=== PATIENT | female | born 1985 | race Caucasian/White ===

== ENCOUNTER 2020-02-16 14:31 | Outpatient (REF) | payer OTHER, SELFPAY ==
[2020-02-16 14:53] LABS: COVID-19 Test Negative (Negative)
== END 2020-02-16 14:32 | disposition home or self-care (01) ==
LOC: HO.EMPCOV 14:31
PROVIDERS: Visit Provider Internal Medicine
DX: Z20.828 Contact with and (suspected) exposure to other viral communicable diseases (principal)
CPT/HCPCS: 87635; C9803

== ENCOUNTER 2020-03-18 11:26 | Outpatient (REF) | payer OTHER, SELFPAY ==
[2020-03-18 11:45] LABS: COVID-19 Test Negative (Negative)
== END 2020-03-18 11:27 | disposition home or self-care (01) ==
LOC: HO.EMPCOV 11:26
PROVIDERS: PCP Nurse Practitioner; Visit Provider Internal Medicine
DX: Z20.828 Contact with and (suspected) exposure to other viral communicable diseases (principal)
CPT/HCPCS: 87635; C9803

== ENCOUNTER 2021-04-15 11:56 | Emergency (ER) | payer OTHER, SELFPAY ==
--- NOTE | ~2021-04-15 | XR_ITS ---
EXAMINATION: XR CHEST CLINICAL INFORMATION: Shortness of breath. COMPARISON: None. TECHNIQUE: PA view of the chest was obtained. FINDINGS: Normal appearance of the cardiomediastinal silhouette. No focal airspace opacities, pleural effusions or pneumothorax. No acute osseous abnormalities. The visualized upper abdomen is within normal limits. XR/XR chest 1V IMPRESSION: No acute cardiopulmonary findings.
[2021-04-15 13:20] VITALS: BP 127/92; PULSE 88; RESP 18; TEMP 36.6; O2SAT 100; BMI 25.0
--- NOTE | 2021-04-15 13:28 | ED.GENADULT ---
HPI - General Adult General Chief complaint: General Medical Stated complaint: +COVID SOB dif breathing Time Seen by Provider: 04/15/21 13:28 Source: patient Mode of arrival: ambulatory Limitations: no limitations History of Present Illness HPI narrative: 35 y/o female with no medical history presents to the ER with SOB and hypoxia on her home pulse oximeter. Reports over the last week she has been winded going up stairs which is not her baseline. She works out a few times a week and is very active. She figured she had the flu because she is fully vaccinated for COVID-19 including the booster and has had no sick contacts. She does not go anywhere but the grocery store. She stayed home and monitor her symptoms. Eventually yesterday she went to the testing center here and got a COVID test and was found to be COVID positive. She reports overall her breathing is better in the worse of it was last week. She got a pulse oximeter and checked it at home and found her O2 sats to be in the 80s. Of note she does have thick red acrylic fake fingernails on. complaint: Oxygen level 80s on home O2 monitor Onset (ago): hour(s) Location: chest Radiation: non-radiation Severity: mild Pain Consistency: intermittent Relieving factors: rest Exacerbating factors: movement Associated symptoms: denies other symptoms Treatments prior to arrival: none Related Data Allergies Allergy/AdvReac Type Severity Reaction Status Date / Time No Known Allergies Allergy Verified 04/15/21 13:19 Review of Systems Review of Systems: Constitutional: No Fever, No Chills ENT/Mouth: No sore throat, No Rhinorrhea Cardiovascular: No Chest Pain, +SOB, No Orthopnea, No Edema Respiratory: No Cough, No Sputum, No Wheezing, + dyspnea Gastrointestinal: No Nausea, No Vomiting, No abdominal Pain, Musculoskeletal: No joint pain, +Myalgias Neuro: No Weakness, No Dizziness,+ Headache Psych: +Anxiety/Panic PMFSH Past Medical History Medical History (Updated 04/15/21 @ 14:16 by JARETT Zapata) Endometriosis Social History Social History Advance Directives: No Advance Directives Information Provided: No Patient : No Physical Exam Vital Signs: Vital Signs: Last Vital Signs Temp 98 F 04/15/21 13:20 Pulse 98 04/15/21 14:00 Resp 20 04/15/21 14:00 BP 127/92 H 04/15/21 13:20 Pulse Ox 100 04/15/21 14:00 BMI result Body Mass Index 25.0 Appearance: Alert. Oriented X3. No acute distress. HEENT: Normal external inspection Neck: Normal inspection. Neck supple. CVS: Normal heart rate and rhythm. Pulses normal. Respiratory: No respiratory distress. Breath sounds normal. Skin: Skin warm and dry. Normal skin color. Normal skin turgor. No rashes. Extremities: Normal inspection, normal range of motion. Neuro: Oriented X 3. Grossly normal, nonfocal. Ambulates with steady gait, no respiratory distress. Course Course Course Narrative: 35-year-old female with known COVID-19 presents to the ER with possible hypoxia at home. Home O2 saturating in the 80s. In triage SpO2 100%. No respiratory distress. Patient was ambulated on the ER a few times with different pulse oximeters and her O2 sats remain 98-100%. She was in no respiratory distress and had no difficulty breathing. Chest x-ray today is clear. 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 She was counseled on proper use with monitoring on the the toe with your low. She is stable for discharge home. Critical Care Time Critical Care Time Critical Care Time: No Discharge Plan Discharge Clinical Impression: COVID-19 Patient Disposition: Home, Self-Care Instructions: Covid-19 Viral Syndrome and Novel Coronavirus (ED) Hey/Ath Additional Instructions: Your oxygen levels remained 100% today while knee emergency room. It is most likely that your home pulse oximeter did not have an accurate reading given your fingernails Hebrew and fake nails. You try monitoring your oxygen levels on your toe or your ear lobe. Follow-up with your doctor as needed If you develop new or worsening symptoms call 911 or come back to the ER for further evaluation. Referrals: Tigist Cox NP [Primary Care Provider] - 1 week (Follow-up COVID) Stand Alone Forms: Work/School Release
[2021-04-15 13:46] VITALS: PULSE 100; O2SAT 83
--- NOTE | 2021-04-15 13:58 | PC.NURSE ---
PT WAS WALK BY [facility] THERAPY AND STAT STAYED AT 100% ON ROOM AIR WITH DIFFERENT MONITOR PT FINGER NAIL POLOSH EFFECTING HE READ ON MONITOR.
[2021-04-15 14:00] VITALS: PULSE 98; RESP 20; O2SAT 100
== END 2021-04-15 14:33 | disposition home or self-care (01) ==
PROVIDERS: Emergency Provider Emergency Medicine; PCP Nurse Practitioner
DX: U07.1 COVID-19 (principal); R06.02 Shortness of breath
CPT/HCPCS: 71045; 99283; 99284

== ENCOUNTER 2021-08-04 07:19 | Outpatient (REF) | payer OTHER, SELFPAY ==
[2021-08-04 11:19] LABS: MANUAL DIFF FLAG NO
[2021-08-04 11:53] LABS: Alanine Aminotransferase 8 U/L (0-31); Albumin Level 3.9 g/dL (3.5-5.0); Alkaline Phosphatase 75 U/L (39-117); Anion Gap 11 (12-20); Aspartate Amino Transferase 13 U/L (5-31); Bilirubin Total 0.4 mg/dL (0.0-1.0); Blood Urea Nitrogen 12 mg/dL (9-16); Calcium 9.2 mg/dL (8.4-10.2); Carbon Dioxide 22 mmol/L (22-29); Chloride 106 mmol/L (96-108); Cholesterol 216 mg/dL; Estimated Glomerular Filt Rate > 60; Glucose Fasting 98 mg/dL (60-99); HDL Cholesterol 52 mg/dL; LDL Cholesterol Calculated 139 mg/dl; Potassium 4.2 mmol/L (3.3-5.1); Sodium 135 mmol/L (135-145); Triglycerides 128 mg/dL
[2021-08-04 11:56] LABS: Basophils Absolute Auto 0.1 X10*3/uL (0.0-0.2); Basophils Percent Auto 1.1 % (0-2); Eosinophils Absolute Auto 0.2 X10*3/uL (0.0-0.4); Eosinophils Percent Auto 2.3 % (0-4); Hematocrit 31.7 % (37.0-47.0); Imm Gran Abs Auto 0.02 X10*3/uL (0.00-0.03); Imm Gran Pct Auto 0.3 % (0.0-0.4); Lymphocytes Absolute Auto 2.5 X10*3/uL (1.2-4.9); Lymphocytes Percent Auto 38.3 % (20-40); Mean Corpuscular HGB Conc 31.5 g/dl (31.0-35.0); Mean Corpuscular Hemoglobin 25.4 pg (27.0-33.0); Mean Corpuscular Volume 80.7 fL (80.0-98.0); Mean Platelet Volume 10.2 fL (9.4-12.3); Monocytes Absolute Auto 0.8 X10*3/uL (0.1-1.2); Monocytes Percent Auto 11.5 % (2-11); Neutrophils Percent Auto 46.5 % (45-73); Platelet Count 483 X10*3/uL (160-400); Red Blood Count 3.93 X10*6/uL (4.20-5.50); Red Cell Distribution Width 14.1 % (11.0-16.0); White Blood Count 6.5 X10*3/uL (4.8-10.8)
[2021-08-04 12:09] LABS: TSH reflex Free T4 2.39 uIU/mL (0.32-4.0)
== END 2021-08-04 07:20 | disposition home or self-care (01) ==
LOC: HO.WFDLDS 07:19
PROVIDERS: Visit Provider Family Medicine
DX: Z00.00 Encounter for general adult medical examination without abnormal findings (principal)
CPT/HCPCS: 36415; 80053; 80061; 84443; 85025

== ENCOUNTER 2021-10-29 10:54 | Outpatient (REF) | payer OTHER, SELFPAY ==
[2021-10-29 12:38] LABS: Folate 6.7 ng/mL (> or = 4.0); Vitamin B12 259 pg/mL (200-900)
[2021-11-03 13:42] LABS: Transglutaminase Ab IgG <1.0 U/mL; Transglutaminase IgA <1.0 U/mL
[2021-11-03 14:06] LABS: Vitamin D 25-OH, D2 <4 ng/mL; Vitamin D 25-OH, D3 61 ng/mL; Vitamin D 25-OH, Total 61 ng/mL (30-100)
== END 2021-10-29 10:55 | disposition home or self-care (01) ==
LOC: HO.LAB 10:54
PROVIDERS: PCP Family Medicine; Visit Provider Nurse Practitioner Family
DX: R10.9 Unspecified abdominal pain (principal); E55.9 Vitamin D deficiency, unspecified; R19.7 Diarrhea, unspecified
CPT/HCPCS: 36415; 82306; 82607; 82746; 86364

== ENCOUNTER 2021-10-30 10:20 | Outpatient (REF) | payer OTHER, SELFPAY ==
[2021-10-30 13:44] LABS: MANUAL DIFF FLAG NO
[2021-10-30 13:49] LABS: Basophils Absolute Auto 0.1 X10*3/uL (0.0-0.2); Basophils Percent Auto 0.7 % (0-2); Eosinophils Absolute Auto 0.1 X10*3/uL (0.0-0.4); Eosinophils Percent Auto 1.8 % (0-4); Hematocrit 31.9 % (37.0-47.0); Hemoglobin 9.9 g/dl (12.0-16.0); Imm Gran Abs Auto 0.01 X10*3/uL (0.00-0.03); Imm Gran Pct Auto 0.1 % (0.0-0.4); Immature Retic Fraction 8.5 % (3.0-15.9); Lymphocytes Absolute Auto 2.2 X10*3/uL (1.2-4.9); Lymphocytes Percent Auto 31.3 % (20-40); Mean Corpuscular Hemoglobin 25.8 pg (27.0-33.0); Mean Corpuscular Volume 83.1 fL (80.0-98.0); Mean Platelet Volume 9.9 fL (9.4-12.3); Monocytes Absolute Auto 0.8 X10*3/uL (0.1-1.2); Monocytes Percent Auto 11.8 % (2-11); Neutrophils Absolute Auto 3.8 x10*3/uL (2.0-8.3); Neutrophils Percent Auto 54.3 % (45-73); Platelet Count 469 X10*3/uL (160-400); Red Blood Count 3.84 X10*6/uL (4.20-5.50); Red Cell Distribution Width 15.2 % (11.0-16.0); Retic HGB Equivalent 27.4 pg (30.0-35.0); Reticulocyte Percent 1.1 % (0.5-1.8); Reticulocytes Absolute 0.042 X10*6/uL (0.026-0.095); White Blood Count 7.1 X10*3/uL (4.8-10.8)
[2021-10-30 14:05] LABS: Iron 30 mcg/dL (30-160)
[2021-10-30 14:23] LABS: Percent Iron Saturation 5 % (15-50); Total Iron Binding Capacity 602 mcg/dL (228-428); Unsaturated Iron Binding 572 ug/dL
[2021-10-30 14:25] LABS: Ferritin 6 ng/mL (10-122)
== END 2021-10-30 10:21 | disposition home or self-care (01) ==
LOC: HO.WFDLDS 10:20
PROVIDERS: Visit Provider Family Medicine
DX: D64.9 Anemia, unspecified (principal)
CPT/HCPCS: 36415; 82728; 83540; 85025; 85045

== ENCOUNTER 2021-10-31 11:10 | Outpatient (REF) | payer OTHER, SELFPAY ==
[2021-11-07 19:01] LABS: Pancreatic Elastase-1 406 mcg/g
== END 2021-10-31 11:11 | disposition home or self-care (01) ==
LOC: HO.LNP 11:10
PROVIDERS: Visit Provider Nurse Practitioner Family
DX: R10.9 Unspecified abdominal pain (principal); K21.9 Gastro-esophageal reflux disease without esophagitis
CPT/HCPCS: 82656; 87338

== ENCOUNTER 2022-01-21 11:48 | Day surgery (SDC) | payer OTHER, SELFPAY ==
--- NOTE | 2022-01-20 11:51 | HO.ANESPROP2 ---
Documented by User: Ashley Rogers NP 01/20/22 11:52 HPI - Anesthesia Eval Consult details Narrative: 36yo F for Upper Endoscopy and Colonoscopy PMFSH Active Problems Active Problems: All Active Problems (Updated 01/15/22 @ 16:56 by Keke Browning RN) COVID-19 (Acute) Laboratory exam ordered as part of routine general medical examination (Acute) History of COVID-19 (Acute) Fatigue (Acute) Brain fog (Acute) Insomnia (Acute) Colon polyps (Acute) Anxiety and depression (Acute) ADHD (Acute) Adult general medical exam (Acute) Anemia (Acute) Screening for cervical cancer (Acute) Hypercholesterolemia (Acute) Breast cancer screening by mammogram (Acute) Nausea and vomiting (Acute) Yeast infection (Acute) Endometriosis (Acute) Past Medical History Medical History ADHD Anemia Anxiety and depression Endometriosis Hyperlipidemia Migraine Social History Social History Housing: House Patient Tobacco Use Status: Never used Tobacco e-Cigarette/Vaping Use: Never Used Second Hand Smoke Exposure: No Use of substances other than those prescribed or required for medical reasons: No Are you DNR?: No Advance Directives: No Advance Directives Information Provided: Yes service: No Current occupational status: employed Current occupational exposures/hazards: No Cognitive needs: No Hearing needs: No Vision needs: No Meds Allergies Allergy/AdvReac Type Severity Reaction Status Date / Time No Known Allergies Allergy Verified 12/12/21 09:24 Home Medications Medication Instructions Recorded Confirmed Last Taken Type dextroamphetamine-amphetamine 10 1 tab PO BID 07/31/21 01/15/22 Unknown History mg tablet etonogestrel 0.12 mg-ethinyl vag ring vaginal 07/31/21 10/30/21 Unknown History estradiol 0.015 mg/24 hr vaginal ring ferrous sulfate 325 mg (65 mg 325 mg PO DAILY 07/31/21 10/30/21 01/14/22 History iron) tablet (FeroSul) fluoxetine 20 mg capsule 20 mg PO DAILY 07/31/21 01/15/22 Unknown History hydroxyzine HCl 10 mg tablet 5 - 10 mg PO BEDTIME PRN Sleep 07/31/21 01/15/22 Unknown History lorazepam 1 mg tablet 0.5 - 1 mg PO DAILY PRN Anxiety 07/31/21 01/15/22 Unknown History sumatriptan succinate 50 mg tablet 50 mg PO DAILY PRN migraine 07/31/21 01/15/22 Unknown History buspirone 10 mg tablet 10 mg PO BID 11/25/21 01/15/22 Unknown History norelgestromin 150 mcg-e.estradiol 1 patch transdermal QWEEK 11/25/21 01/15/22 Unknown History 35 mcg/24 hr weekly transderm patch (Xulane) Exam Exam Date and Time: January 20, 2022 115 Pertinent Lab Results Pertinent Lab Results: Laboratory Tests 08/04/21 10/30/21 07:26 10:25 WBC 7.1 Hgb 9.9 L Hct 31.9 L Plt Count 469 H Sodium 135 Potassium 4.2 Chloride 106 Carbon Dioxide 22 BUN 12 Creatinine 0.84 Assessment and Plan Assessment Anesthesia Assessment: Chart Reviewed Documented by User: Jeanne Massey MD 01/21/22 14:07 [facility] Past Medical History Medical History ADHD Anemia Anxiety and depression Endometriosis Hyperlipidemia Migraine Functional capacity: independent ambulation Patient : No Family History Family history of problems with anesthesia: No Surgical History History of Problems with Anesthesia: No Social History Social History Housing: House Patient Tobacco Use Status: Never used Tobacco e-Cigarette/Vaping Use: Never Used Second Hand Smoke Exposure: No Use of substances other than those prescribed or required for medical reasons: No Are you DNR?: No Advance Directives: No Advance Directives Information Provided: Yes service: No Current occupational status: employed Current occupational exposures/hazards: No Cognitive needs: No Hearing needs: No Vision needs: No Meds Allergies Allergy/AdvReac Type Severity Reaction Status Date / Time No Known Allergies Allergy Verified 12/12/21 09:24 Home Medications Medication Instructions Recorded Confirmed Last Taken Type dextroamphetamine-amphetamine 10 1 tab PO BID 07/31/21 01/15/22 Unknown History mg tablet etonogestrel 0.12 mg-ethinyl vag ring vaginal 07/31/21 10/30/21 Unknown History estradiol 0.015 mg/24 hr vaginal ring ferrous sulfate 325 mg (65 mg 325 mg PO DAILY 07/31/21 10/30/21 01/14/22 History iron) tablet (FeroSul) fluoxetine 20 mg capsule 20 mg PO DAILY 07/31/21 01/15/22 Unknown History hydroxyzine HCl 10 mg tablet 5 - 10 mg PO BEDTIME PRN Sleep 07/31/21 01/15/22 Unknown History lorazepam 1 mg tablet 0.5 - 1 mg PO DAILY PRN Anxiety 07/31/21 01/15/22 Unknown History sumatriptan succinate 50 mg tablet 50 mg PO DAILY PRN migraine 07/31/21 01/15/22 Unknown History buspirone 10 mg tablet 10 mg PO BID 11/25/21 01/15/22 Unknown History norelgestromin 150 mcg-e.estradiol 1 patch transdermal QWEEK 11/25/21 01/15/22 Unknown History 35 mcg/24 hr weekly transderm patch (Xulane) Exam Airway Mallampati Class: II TM Dist: >3cm Neck ROM: Full Heart: RRR Lungs: TA Assessment and Plan Final Anesthetic Review Family History of Problems with Anesthesia: No History of Problems with Anesthesia: No ASA Class: II Final Preanesthetic Review: No Changes in Pt Med Stat, Meds/Allgs Chart Reviewed, Consent Obtained/Reviewed and Anes Risks/Benef Reviewed Patient Risk: Low Procedure Risk: Low Anesthetic Plan Anesthetic Plan: MAC: Disposition: Standard PACU
[2022-01-21 13:10] VITALS: BP 127/81; PULSE 93; RESP 18; TEMP 36.4; O2SAT 99; BMI 24.3
--- NOTE | 2022-01-21 13:26 | MHC.SHP ---
Pre-Procedural Eval Section A Date of Service: 01/21/22 Section B Chief Complaint: reflux,hx of polyps Details of Present Illness: anemia and abdominal pain Relevant Family History (Specify if Yes): Yes Relevant Social History: None Present Medications: see Short Stay Collaborative assessment Medical History: Significant History (ADHD Anemia Anxiety and depression Endometriosis Hyperlipidemia Migraine) History of Previous Operations: Relevant previous surgery/procedure and date(s) (ovarian cystectomy) Allergies: Allergies Allergy/AdvReac Type Severity Reaction Status Date / Time No Known Allergies Allergy Verified 12/12/21 09:24 Review of Systems Sugical H&P ROS: Negative: Constitution, Cardiovascular, Respiratory, Neurological, Psychiatric, Hem-Onc, Allergic/Immunologic, Gastrointestinal, Genitourinary, Musculoskeletal, Integumentary, Endocrine and Eyes/Ears/Nose/Throat Exam Surgical H&P Exam: Normal: HEENT, Normal: Heart, Normal: Lungs, Normal: Extremities, Normal: Abdomen, Normal: Skin and Normal: Neurological Plan Diagnosis/Plan: Unchanged I have reviewed the history and physical and performed a pertinent physical examination on my patient. No changes have occurred unless specified.
[2022-01-21 13:30] LABS: UPreg QC Valid YES; Urine Pregnancy NEGATIVE (NEGATIVE)
--- NOTE | 2022-01-21 13:37 | W.PM.OPN ---
Operative Note Operative Note Date of Service: 01/21/22 Narrative: Operative Information Procedure Description: EGD, Colonoscopy Indication: anemia and abdominal pain Anesthesia: MAC FLEXIBLE TRANSORAL UPPER GASTROINTESTINAL ENDOSCOPY AND COLONOSCOPY PROCEDURE NOTE UPPER ENDOSCOPY Consent: Indications for the procedure and potential complications of bleeding, perforation, reaction to medications and missed diagnosis were discussed with the patient and informed consent was obtained. Instrument: Olympus GIF H 190 J mid size upper endoscope Monitoring: Vital signs and clinical assessment, continuous EKG monitoring, Pulse oximetry, Carbon Dioxide monitoring and blood pressure monitoring were done throughout the procedure. Procedure: The patient was placed in the left lateral decubitis position and pre-procedure medications were administered and a bite block was placed. The endoscope was inserted into the mouth and advanced under direct vision to the third part of duodenum. A careful inspection was made as the upper endoscope was withdrawn including a retroflexed examination of the proximal stomach; Findings and interventions are described below. Findings: Larynx:normal Esophagus: GE junction at 37 cm, diaphragm hiatus at 37 cm, suspected barretts esophagus with short tongues and islands of salmon pink mucosa, bx taken as well as random esophagus Stomach: Normal mucosa. Biopsies were obtained. Grade 2 flap valve on retroflexed examination of the cardia. Duodenum: Normal bulb and descending duodenum, bx taken Intervention: Biopsies as noted above COLONOSCOPY Instrument: Olympus variable stiffness pediatric scope 190L Colonoscopy Monitoring: Vital signs and clinical assessment, continuous EKG monitoring, Pulse oximetry, Carbon Dioxide monitoring and blood pressure monitoring were done throughout the procedure. Colon withdrawal time was 10 minutes. Procedure: The patient was placed in the left lateral decubitis position and pre-procedure medications were administered. After a digital rectal examination of the ano-rectum, the video colonoscope was inserted into the rectum and advanced through the colon to the cecum/TI. The colonoscope was slowly withdrawn in a retrograde panoramic fashion and the colon mucosa was carefully examined including a retroflexed view of the rectum. Findings and interventions are described below. Procedure Difficulty: easy Findings: Terminal Ileum-normal, random bx taken random colon bx taken Cecum:normal Ascending Colon: normal Transverse Colon -normal Descending Colon:normal Sigmoid Colon: normal Rectum: Retroflexion with small internal hemorrhoids, grade I Anorectum - normal Colon preparation: [place] Bowel Preparation Scale Right colon; 2 Transverse colon: 2 Left colon; 2 (0 = Unprepared colon segment with mucosa not seen due to solid stool that cannot be cleared. 1 = Portion of mucosa of the colon segment seen, but other areas of the colon segment not well seen due to staining, residual stool and/or opaque liquid. 2 = Minor amount of residual staining, small fragments of stool and/or opaque liquid, but mucosa of colon segment seen well. 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 Colonoscopy Findings: internal hemorrhoids bx also sent for mast cell staining Plan: Await Pathology results Patient had genetic testing done and is higher risk per her report, so recommend repeat colonoscopy in 1-2 yrs, she will send me the details on the testing done, if this tursn out not to increase her risk then can repeat colon in 5 yrs due to prior hx of polyps High fiber diet leaflet avoid straining at stool, epsom salts and sitz bath, anusol supps or cream if barretts pos then repeat EGD in 3 yrs or so, may need PPI Above findings were reviewed with the patient and relevant handouts were provided if indicated.
[2022-01-21] MEDS: Lactated Ringers 1,000 ML 100 ML IVCONT (13:40)
[2022-01-21 14:37] VITALS: BP 105/62; PULSE 86; RESP 16; TEMP 36.7; O2SAT 95
[2022-01-21 14:52] VITALS: BP 123/83; PULSE 65; RESP 16; TEMP 36.8; O2SAT 100
== END 2022-01-21 15:20 | disposition home or self-care (01) ==
PROVIDERS: Nurse Practitioner; PCP Family Medicine; Visit Provider Internal Medicine Gastroenterology
PROC: (CPT 45380; principal; 2022-01-21 13:40)
DX: D64.9 Anemia, unspecified (principal); Z86.010 Personal history of colon polyps; K63.89 Other specified diseases of intestine; K64.0 First degree hemorrhoids; K58.1 Irritable bowel syndrome with constipation; K59.04 Chronic idiopathic constipation; K21.9 Gastro-esophageal reflux disease without esophagitis; K29.50 Unspecified chronic gastritis without bleeding; K20.80 Other esophagitis without bleeding; N80.9 Endometriosis, unspecified; E78.5 Hyperlipidemia, unspecified; K44.9 Diaphragmatic hernia without obstruction or gangrene; F90.9 Attention-deficit hyperactivity disorder, unspecified type; F41.8 Other specified anxiety disorders; G43.909 Migraine, unspecified, not intractable, without status migrainosus; Z79.899 Other long term (current) drug therapy
CPT/HCPCS: 45380; 43239; 81025; 88305; 88341; 88342

== ENCOUNTER 2022-01-29 11:09 | Outpatient (REF) | payer OTHER, SELFPAY ==
[2022-01-29 13:50] LABS: MANUAL DIFF FLAG NO
[2022-01-29 14:02] LABS: Basophils Absolute Auto 0.1 X10*3/uL (0.0-0.2); Basophils Percent Auto 1.3 % (0-2); Eosinophils Absolute Auto 0.2 X10*3/uL (0.0-0.4); Eosinophils Percent Auto 2.3 % (0-4); Hematocrit 30.7 % (37.0-47.0); Hemoglobin 9.8 g/dl (12.0-16.0); Imm Gran Abs Auto 0.01 X10*3/uL (0.00-0.03); Imm Gran Pct Auto 0.1 % (0.0-0.4); Mean Corpuscular HGB Conc 31.9 g/dl (31.0-35.0); Mean Corpuscular Hemoglobin 25.6 pg (27.0-33.0); Mean Corpuscular Volume 80.2 fL (80.0-98.0); Mean Platelet Volume 10.8 fL (9.4-12.3); Monocytes Absolute Auto 0.7 X10*3/uL (0.1-1.2); Monocytes Percent Auto 10.2 % (2-11); Neutrophils Absolute Auto 4.1 x10*3/uL (2.0-8.3); Neutrophils Percent Auto 58.1 % (45-73); Platelet Count 428 X10*3/uL (160-400); Red Blood Count 3.83 X10*6/uL (4.20-5.50); Red Cell Distribution Width 15.4 % (11.0-16.0); White Blood Count 7.1 X10*3/uL (4.8-10.8)
[2022-01-29 14:51] LABS: Cholesterol 209 mg/dL; HDL Cholesterol 71 mg/dL; Iron 44 mcg/dL (30-160); LDL Cholesterol Calculated 112 mg/dl; Percent Iron Saturation 7 % (15-50); Total Iron Binding Capacity 663 mcg/dL (228-428); Triglycerides 134 mg/dL; Unsaturated Iron Binding 619 ug/dL
== END 2022-01-29 11:10 | disposition home or self-care (01) ==
LOC: HO.WFDLDS 11:09
PROVIDERS: Visit Provider Family Medicine
DX: Z00.00 Encounter for general adult medical examination without abnormal findings (principal); E78.00 Pure hypercholesterolemia, unspecified; D64.9 Anemia, unspecified
CPT/HCPCS: 36415; 80061; 83540; 85025

== ENCOUNTER → 2022-03-26 08:23 | Outpatient (BNV) | payer OTHER, SELFPAY | PROVIDERS: PCP Family Medicine; Referring Provider Family Medicine; Visit Provider Internal Medicine Medical Oncology | DX: D64.9 Anemia, unspecified (principal) | CPT/HCPCS: 99204; 99213 ==

== ENCOUNTER 2022-04-23 10:53 | Outpatient (REF) | payer OTHER, SELFPAY | END 2022-04-23 10:54 | disposition home or self-care (01) | LOC: HO.MDS 10:53 | PROVIDERS: PCP Family Medicine; Visit Provider Internal Medicine Medical Oncology | DX: D50.9 Iron deficiency anemia, unspecified (principal) | CPT/HCPCS: 96365; J1756 ==

== ENCOUNTER 2022-04-28 07:43 | Outpatient (REF) | payer OTHER, SELFPAY | END 2022-04-28 07:44 | disposition home or self-care (01) | LOC: HO.MDS 07:43 | PROVIDERS: Visit Provider Internal Medicine Medical Oncology | DX: D50.9 Iron deficiency anemia, unspecified (principal) | CPT/HCPCS: 96365; J1756 ==

== ENCOUNTER 2022-05-05 08:20 | Outpatient (REF) | payer OTHER, SELFPAY | END 2022-05-05 08:21 | disposition home or self-care (01) | LOC: HO.MDS 08:20 | PROVIDERS: Visit Provider Internal Medicine Medical Oncology | DX: D50.9 Iron deficiency anemia, unspecified (principal) | CPT/HCPCS: 96365; J1756 ==

== ENCOUNTER → 2022-05-08 11:54 | Outpatient (BNVA) | payer OTHER, SELFPAY | PROVIDERS: PCP Family Medicine; Visit Provider Nurse Practitioner Family | DX: Z13.89 Encounter for screening for other disorder (principal) ==

== ENCOUNTER 2022-05-12 08:42 | Outpatient (REF) | payer OTHER, SELFPAY ==
[2022-05-12 10:03] LABS: MANUAL DIFF FLAG NO
[2022-05-12 10:04] LABS: Basophils Percent Auto 0.7 % (0-2); Eosinophils Absolute Auto 0.1 X10*3/uL (0.0-0.4); Eosinophils Percent Auto 1.6 % (0-4); Hematocrit 31.9 % (37.0-47.0); Hemoglobin 10.1 g/dl (12.0-16.0); Imm Gran Abs Auto 0.01 X10*3/uL (0.00-0.03); Imm Gran Pct Auto 0.2 % (0.0-0.4); Lymphocytes Absolute Auto 1.4 X10*3/uL (1.2-4.9); Lymphocytes Percent Auto 32.6 % (20-40); Mean Corpuscular HGB Conc 31.7 g/dl (31.0-35.0); Mean Corpuscular Volume 82.2 fL (80.0-98.0); Mean Platelet Volume 8.8 fL (9.4-12.3); Monocytes Absolute Auto 0.4 X10*3/uL (0.1-1.2); Monocytes Percent Auto 8.5 % (2-11); Neutrophils Absolute Auto 2.5 x10*3/uL (2.0-8.3); Neutrophils Percent Auto 56.4 % (45-73); Platelet Count 327 X10*3/uL (160-400); Red Blood Count 3.88 X10*6/uL (4.20-5.50); Red Cell Distribution Width 19.9 % (11.0-16.0); White Blood Count 4.4 X10*3/uL (4.8-10.8)
== END 2022-05-12 08:43 | disposition home or self-care (01) ==
LOC: HO.MDS 08:42
PROVIDERS: Visit Provider Internal Medicine Medical Oncology
DX: D50.9 Iron deficiency anemia, unspecified (principal)
CPT/HCPCS: 36415; 85025; 96365; J1756

== ENCOUNTER 2022-05-19 08:22 | Outpatient (REF) | payer OTHER, SELFPAY | END 2022-05-19 08:23 | disposition home or self-care (01) | LOC: HO.MDS 08:22 | PROVIDERS: Visit Provider Internal Medicine Medical Oncology | DX: D50.9 Iron deficiency anemia, unspecified (principal) | CPT/HCPCS: 96365; J1756 ==

== ENCOUNTER 2022-05-26 07:39 | Outpatient (REF) | payer OTHER, SELFPAY | END 2022-05-26 07:40 | disposition home or self-care (01) | LOC: HO.MDS 07:39 | PROVIDERS: Visit Provider Internal Medicine Medical Oncology | DX: D50.9 Iron deficiency anemia, unspecified (principal) | CPT/HCPCS: 96365; J1756 ==

== ENCOUNTER 2022-06-09 07:36 | Outpatient (REF) | payer OTHER, SELFPAY | END 2022-06-09 07:37 | disposition home or self-care (01) | LOC: HO.MDS 07:36 | PROVIDERS: Visit Provider Internal Medicine Medical Oncology | DX: D50.9 Iron deficiency anemia, unspecified (principal) | CPT/HCPCS: 96365; J1756 ==

== ENCOUNTER 2022-06-24 07:56 | Outpatient (REF) | payer OTHER, SELFPAY ==
[2022-06-24 09:33] LABS: Eos%MD 3.2 %; Hematocrit 35.2 % (37.0-47.0); Hemoglobin 11.6 g/dl (12.0-16.0); IG%MD 0.1 %; Lymph%MD 26.6 %; Mean Corpuscular Hemoglobin 28.9 pg (27.0-33.0); Mean Corpuscular Volume 87.6 fL (80.0-98.0); Mean Platelet Volume 9.3 fL (9.4-12.3); Mono%MD 11.8 %; Neut%MD 57.3 %; Platelet Count 320 X10*3/uL (160-400); Red Blood Count 4.02 X10*6/uL (4.20-5.50)
[2022-06-24 12:44] LABS: Atypical Lymph Absolute Manual 0.1 x10*3/uL; Atypical Lymphs Percent Manual 1 % (0-6); Band Neutrophils Percent 0 % (3-5); Eosinophils Absolute Manual 0.1 X10*3/uL (0.0-0.4); Eosinophils Percent Manual 2 % (0-4); Lymphocytes Absolute Manual 2.2 X10*3/uL (1.2-4.9); Lymphocytes Percent Manual 31 % (20-40); Monocytes Absolute Manual 0.2 X10*3/uL (0.1-1.2); Monocytes Percent Manual 3 % (2-11); Neutrophils Absolute Manual 4.4 X10*3/uL (2.0-8.3); Neutrophils Percent Manual 63 % (45-73); RBC Morphology NORMAL
[2022-06-24 12:45] LABS: Platelet Estimate NORMAL (NORMAL); Platelet Morphology Comment NORMAL
== END 2022-06-24 07:57 | disposition home or self-care (01) ==
LOC: HO.MDS 07:56
PROVIDERS: Visit Provider Internal Medicine Medical Oncology
DX: D50.9 Iron deficiency anemia, unspecified (principal)
CPT/HCPCS: 36415; 85007; 85027; 96365; J1756

== ENCOUNTER 2024-03-23 11:16 | Outpatient (AMB) | payer OTHER, SELFPAY ==
--- NOTE | 2024-03-23 11:26 | A.OFFPC_ITS ---
Vital Signs 03/23/24 11:32 Height 5 ft 6 in Weight 160 lb 2 oz BMI 25.8 BP 110/70 Blood Pressure Location Rt brachial Position Sitting Respiration 16 Pulse 74 Pulse Source Pulse Oximeter Temp 97.9 F Temp Source Oral Pulse Oximetry (%) 100 Oxygen Delivery Method Room Air Intake Visit Reasons: Med Management Intake Note: medication refill pt is aware she has not seen pcp in a while and that due to insurance changes she now uses insurance that our office takes and would like to resume care with pcp Allergies bee pollen [bee stings] Allergy (Severe, Verified 03/23/24 11:28) Anaphylaxis Tobacco use date assessed: 01/29/22 HPI Med Management HPI Details 38 y/o female presents to f/u chronic co nditions. Ongoing complaints of headaches that sound like tension style headaches. Notes sumitriptan has not been working well for her. She does not think she has enough time for physical therapy. A1c 5.4%. She is on semaglutide 0.25mg. She notes A1cs have been as high as 7 in her weight loss clinic. HPI Comments History of Present Illness Details Documentation assistance for Eben Negrete MD, was provided by Bryan Ang,? Income Tax Investigator on 03/23/2024 at 11:57 AM EST. I, Dr. Negrete, have read, observed, and verified documentation. [facility] Medical History (Updated 03/23/24 @ 11:54 by Bryan Ang) Irritable bowel syndrome Anemia Migraine Anxiety and depression ADHD Hyperlipidemia Endometriosis Surgical History History of tonsillectomy History of appendectomy History of removal of ovarian cyst Hx of esophagogastroduodenoscopy Hx of colonoscopy Family History Maternal Aunt Breast CA Maternal Grandfather Lung cancer Social History Household Members: Family Housing: House Are you a primary patient care coordinator to a significant other at home: No Do you presently have visiting nurse or other home services: No Patient Tobacco Use Status: Never used Tobacco e-Cigarette/Vaping Use: Never Used Second Hand Smoke Exposure: No service: No Current occupational status: employed Current occupational exposures/hazards: No Cognitive needs: No Hearing needs: No Vision needs: No Questionnaire PHQ-9 Over the last 2 weeks, how often have you been bothered by any of the following problems? 1. Little interest or pleasure in doing things: several days 2. Feeling down, depressed, or hopeless: several days 3. Trouble falling or staying asleep, or sleeping too much: several days 4. Feeling tired or having little energy: several days 5. Poor appetite or overeating: not at all 6. Feeling bad about yourself - or that you are a failure or have let yourself or your family down: not at all 7. Trouble concentrating on things, such as reading the newspaper or watching television: several days 8. Moving or speaking so slowly that other people could have noticed. Or the opposite - being so fidgety or restless that you have been moving around a lot more than usual: several days 9. Thoughts that you would be better off or of hurting yourself in some way: not at all Total score: 6 Source: Developed by Drs. Shay Sy, Tatyana Guzmán, Nilson Tabor and colleagues, with an educational kaia from [employer]. Thrive Questionnaire Date Thrive assessed: 03/20/24 I am a: Patient What is your living situation today?: I have a steady place to live Within the past 12 months, did the food you bought not last and you didn't have the money to get more?: I choose not to answer this question Within the past 12 months, did you worry whether your food would run out before you got money to buy more?: I choose not to answer this question Do you have trouble paying for medicines?: I choose not to answer this question Do you have trouble getting transportation to medical appointments?: No Do you have trouble paying your heating and electricity bill?: I choose not to answer this question Do you have trouble taking care of your child, family member or friend?: No Do you have trouble with day-to-day activities such as bathing, preparing meals, shopping, managing finances, etc.?: No Are you currently unemployed and looking for a job?: No Are you interested in more education?: No Please select the resources that you would like help with: None Currently or been in a relationship where the following occur: I choose not to answer THRIVE Score: 0 AUDIT C Alcohol Use Questionnaire (AUDIT-C) 1. How often do you have a drink containing alcohol?: 2-4 times a month 2. How many drinks containing alcohol do you have on a typical day when you are drinking?: 1 or 2 3. How often do you have six or more drinks on one occasion?: Never Total Score: 2 TORRI-7 AMB Questionnaire TORRI-7 Date TORRI - 7 assessed: 01/29/22 Feeling nervous, anxious, or on edge: 1 = Several days Not being able to stop or control worryin = Several days Worrying too much about different things: 1 = Several days Trouble relaxin = Several days Being so restless that it is hard to sit still: 1 = Several days Becoming easily annoyed or irritable: 1 = Several days Feeling afraid as if something awful might happen: 1 = Several days Total TORRI-7 score (0-4 normal; 5-9 mild; 10-14 moderate; 15-21 severe): 7 Source: Developed by Drs. Shay Sy, Tatyana Guzmán, Nilson Tabor and colleagues, with an educational kaia from [employer]. Review of Systems Const Denies fatigue and Reports headache(s) ENT Reports headache(s) Card Denies dyspnea Resp Denies cough, Denies dyspnea, Denies wheezing and Denies other (shortness of breath) Musc Denies numbness and Denies tingling Neuro Reports headache(s), Denies numbness and Denies tingling Psych Denies anxiety and Denies depression Endo Denies fatigue Aller/Immun Denies wheezing Physical exam (Primary Care) Vital Signs: Last Vital Signs Temp 97.9 F 03/23/24 11:32 Pulse 74 03/23/24 11:32 Resp 16 03/23/24 11:32 BP 110/70 03/23/24 11:32 Pulse Ox 100 03/23/24 11:32 Oxygen Delivery Method Room Air 03/23/24 11:32 BMI result Body Mass Index 25.8 Tobacco/Smoking Status: Tobacco use Status Tobacco use date assessed 01/29/22 03/23/24 11:31 Patient Tobacco Use Status Never used Tobacco 03/23/24 11:31 e-Cigarette/Vaping Use Never Used 03/23/24 11:31 PHQ-9: PHQ-9 Score PHQ-9: Total score 6 03/23/24 11:31 Thrive Assessment: Date of Thrive Assessment Date Thrive assessed 03/20/24 03/23/24 11:31 Currently or been in a relationship where the following occur: I choose not to answer Const General: well developed; No acute distress Nutritional Appearance: well nourished Orientation/consciousness: patient oriented x3 HENMT Head: Yes normocephalic and Yes atraumatic Eyes General: appearance normal, both eyes and all related structures Pupils: Equal, round and reactive pupils present EOM: EOMs intact bilaterally Resp Effort & Inspection: normal respiratory effort Neuro General: patient oriented x3 and gait normal Cranial nerves: Yes Equal, round and reactive pupils present Psych Affect: normal affect Coding Level of Care Code Est Pt Level 4 (93804) Diagnoses Headache R51.9 Overweight E66.3 Pre-diabetes R73.03 Assessment & Plan Assessment & Plan (1) Headache: Code(s): R51.9 - Headache, unspecified Category: Medical Plan: Patient?has?sumatriptan?but?most?of?her?headaches?are?described?as?bandlike?or?p osterior?and?associated?with?tension Offered?physical?therapy?but?she?does?not?think?she?has?enough?time?for?this?rig ht?now Demonstrated?exercises?she?can?do?for?her?neck?and?shoulders. She?will?work?improving?work?environment?sleep?environment?decrease?tension?in?n kevin?and?shoulders She?can?use?some?ibuprofen?Tylenol Hydrate?well?and?plenty?of?sleep If?not?improving?will?let?know?and?we?consider?treatments (2) Overweight: Code(s): E66.3 - Overweight Category: Medical Plan: Patient?been?taking?semaglutide?through?a?weight?loss?clinic Her?A1c?today?is?5.4%?this ?medication.??Likely?has?pre?diabetes?or?possibly?diabetes.??See?below Continue?work?at?weight?loss We?discussed?that?would?prescribe?medication?for?at?declined?for?pain?med?by?ins urance (3) Pre-diabetes: Code(s): R73.03 - Prediabetes Category: Medical Plan: A1c?is?5.4%?despite?semaglutide. She?says?that?her?A1c?has?been?as?7?when?tested?weight?loss?clinic. I?have?this?data?of?I?have?asked?her?provide?this?for.??Who?can?establish?diagno sis?yousif betes?treat?as?such?likely?able?to?prescribe?semaglutide?or?medication?class?to? help?blood?sugars?in?wean. She?is?unable?do?so?and?can?not?give?medication?we?recheck?her?A1c?when?she?been ?off?it?for?a?while Orders: Orders AMB Hemoglobin A1c Today Z00.00 - Encounter for general adult medical examination without abnormal findings, Z13.9 - Encounter for screening, unspecified Comprehensive [place]. Panel Fast Today Z00.00 - Encounter for general adult medical examination without abnormal findings Lipid Panel Today Z00.00 - Encounter for general adult medical examination without abnormal findings Microalbumin, Random (w Creat) Today I10 - Essential (primary) hypertension TSH reflex Free T4 Today Z00.00 - Encounter for general adult medical examination without abnormal findings Complete Blood Count Auto Diff Today Z00.00 - Encounter for general adult medical examination without abnormal findings UA and rflx microscopic Today Z00.00 - Encounter for general adult medical examination without abnormal findings Medications: New semaglutide for 4 weeks 0.25 mg (0.368 mL) subcut QWEEK 28 days 1.472 mL 3RF E66.3 - Overweight, R73.03 - Prediabetes pantoprazole 40 mg PO DAILY 30 days 30 tabs 3RF
[2024-03-23 11:32] VITALS: BP 110/70; PULSE 74; RESP 16; TEMP 36.6; O2SAT 100; BMI 25.8
== END 2024-03-23 12:00 | disposition home or self-care (01) ==
PROVIDERS: PCP Family Medicine; Visit Provider Family Medicine
DX: R51.9 Headache, unspecified (principal); E66.3 Overweight; R73.03 Prediabetes; Z13.9 Encounter for screening, unspecified; Z00.00 Encounter for general adult medical examination without abnormal findings

== ENCOUNTER → 2024-03-23 11:16 | Outpatient (BNVA) | payer OTHER, SELFPAY | PROVIDERS: PCP Nurse Practitioner; Visit Provider Family Medicine | DX: Z00.00 Encounter for general adult medical examination without abnormal findings (principal); R51.9 Headache, unspecified; E66.3 Overweight; R73.03 Prediabetes; I10 Essential (primary) hypertension; Z51.81 Encounter for therapeutic drug level monitoring; Z68.25 Body mass index [BMI] 25.0-25.9, adult | CPT/HCPCS: 83036; 96127; 99212 ==

== ENCOUNTER → 2024-05-12 08:40 | Outpatient (BNVA) | payer OTHER, SELFPAY | PROVIDERS: PCP Family Medicine; Visit Provider Family Medicine | DX: E11.9 Type 2 diabetes mellitus without complications (principal); R51.9 Headache, unspecified | CPT/HCPCS: 99212 ==

== ENCOUNTER → 2024-05-12 08:40 | Outpatient (AMB) | payer OTHER, SELFPAY ==
--- OUTSIDE RECORDS SUMMARY | 2024-05-12 09:01 | XMS_ITS | Data Portability ---
Author Organization [place] [facility],, LING GONZALEZ MD Address [address] [address] Care Team Providers Care Business Process Architect Name Role Phone RANDY CALLOWAY Primary Care Provider Assessment No assessment recorded. Plan of Treatment Reminders Order Date Submit Date Provider Last Modified By Organization Details Last Modified Time Details Appointments None recorded. Lab brca (1+2) mutation analysis, blood or tissue 2021 022 [facility], [address] [place] [address], [address], 2 07:48:43 pap test, thinprep, cervical 2022 023 [facility], [address] [place], [address], 3 07:33:11 chlamydia sp, culture, unspecified specimen 2022 023 [facility], [address] [place], [address], 3 07:26:54 NG DNA, PCR, genital 2022 023 [facility], [address] [place], [address], 3 07:26:55 Referral None recorded. Procedures None recorded. Surgeries None recorded. Imaging US, breast - 4 mm cystic mass at the 6 o'clock under the edge of the right areole. Her two maternal aunts had breast cancer in the age 40 to 50 range. 2021 022 [facility], [address], [address], [place], [address], 2 01:12:58 MAMMO, diagnostic, digital, bilateral - 4 mm cystic mass at the 6 o'clock under the edge of the right areole. Her two maternal aunts had breast cancer in the age 40 to 50 range. 2021 022 [facility], [address], [address], [place], [address], 2 17:18:21 Medication Orders Xulane 150 mcg-35 mcg/24 hr transdermal patch 2022 023 [id number], [address] [place], [address], 3 13:58:15 Patient TargetsNo targets recorded. Patient Instructions Encounter Date Encounter Id Patient Instructions Last Modified By Organization Details Last Modified Time 10/27/2021 [id number] She is here because she noted a small lump in her right breast a few weeks ago, it is unchanged in size. She is concerned because she has two maternal aunts who had breast cancer, one in her 40s and one in her 50s. She believes it is related in timing to the start of her Xulane patches. She does note that her severe dysmenorrhea is much improve with the patch and she would prefer to stay on it if possible. On exam:4 mm cystic mass at the 6 o'clock under the edge of the right areole. Check sonogram and mammogram of the breast, for assessment of new breast mass. Not available 10/27/2021 13:08:08 11/07/2021 [id number] breast cancer (BRCA) gene testing: care instructions Not available 11/07/2021 11:33:36 She is her for BRCA testing, has two maternal aunts who had breast cancer, at ages 47 and 51, both are . We discussed her strong family history of breast cancer. We discussed that only 5% of patients who have a strong family history of breast and /or ovarian cancer will ultimately be found to be BRCA positive.? ? ? We discussed how the human genome functions to transfer traits and risks, and what a mutation is, and how this can be passed from parent to child.? ? ? We discussed the 50% chance that a BRCA positive individual will give the mutation to their child, and that 50% of the children, statistically, will not inherit the mutation, which means that they can not pass it on.? ? ? It does not skip a generation. We reviewed the statistics on risks for breast and ovarian cancer in the general populatoin, and in a BRCA positive individual, as stated in the take home booklet Hereditary Breast and Ovarian Cancer Syndrome, A patient's guide to risk assessment , and she received this to go home with, to review again. We discussed that by law an insurer can not discriminate against her if she were to test positive, for health insurance. We discussed the company that does the test, and that there is only one company that does this testing and so all tests go here. She is aware that the co payment could be a maximum amount of 375 dollars, and that the testing company ([employer]) will contact her if the co pay were to be more than that, prior to running the test, to get her approval. If she were to test postiive for the BRCA mutation then she could be offered a management protocol that could include increased testing, including breast MRI, removal of her ovaries, preventitive medical therapy such as raloxifene, and even prophypactic removal of her breast tissue. She is aware. Implications for testing of other family members if she were to be postiive, and the decreased cost for that testing, discussed. All questions answered.? ? ? She would like? ? ?to be tested, and she qualifies to be tested.? ? ?She is aware that it is her responsibility to be certain the test will be covered by her insurance however we will work with her to get accurate information for her to make decisions. Face to face discussion? ? ?30 minutes Not available 11/07/2021 11:33:51 12/04/2021 [id number] S?he is her e to repeat breast exam after testing did not find any abnormal mass. She notes the right breast cyst has not been palpable to her in over a week. T?he mass is no longer palpable, call if it recurs. 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 We also discussed that her T-K is 21% and that she can get an annual mammogram and MRI of the breasts and be included in a high risk breast care program. After discussion she elects to not do that at this time, but states she will think about it and get back to me to schedule if she changes her mind. Not available 12/04/2021 09:19:26 06/25/2022 [id number] She is her for annual exam, in the past year her mother and maternal aunt and two maternal cousins have developed breast cancer, the cousins are getting chemo due to stage 2 . Not available 06/25/2022 11:37:43 07/09/2022 [id number] learning about healthy weight [email or web address] Not available 07/09/2022 13:56:54 She is here for annual, had switched to patch from ring, is happy, no problems with it. We discussed weight limit issues, she is aware. note from 2021: She is here for annual exam. she had used the brand name Nuvaring for years wiht no problem, then she was switched to the generic ring in summer of 2020. She developed nausea and irregular vaginal spotting, The nausea was so severe that she had to stop using the ring during hte first month she used it, and the nausea resolved soon after the ring was removed. She had no issues until she just restarted this rx, they gave her the generic ring, and again the severe nausea, and the spotting, have restarted. ___ She appears to be doing well. We reviewed the interaction of the patch with antibiotics. We discussed the need to use a condom during antibiotic use and also for a minimum of three weeks following the use of antibiotics. We discussed interactions with some herbal and OTC meds, such as [facility] Possible side effects, and the stated risk of one in 10,000 to develop a blood clot/ DVT/PE were also discussed. Safe sex was stressed. All questions answered, rx to be called in to pharmacy. Monthly self breast exam was taught, and stressed, and is advised to call if she discovers any new mass in the breast. Not available 07/09/2022 13:57:43 Reason for Referral None Reported. Results Created Date Observation Date Name Description Value Unit Range Abnormal Flag Note LastModifiedBy Organization Detail LastModifiedTime 07/10/19 23 07/10/[address]/GC AMPLI FIED PROBE C.trach.amp probe thin prep (neg) NEGAT GALINA No Chlam ydia Trach omati s RNA detec sondra in this patie nt's sampl e (REFE RENCE RANGE /NORM AL VALUE : NOT DETEC SONDRA) Note: This test uses trans cript ion- media sondra ampli ficat ion metho d to detec t rRNA from C. Trach omati s Not Available [facility] [address], [place], [address], 07/10/2022 13:07:00 07/10/19 23 07/10/[address]/GC AMPLI FIED PROBE GC amplified probe thin prep (neg) NEGAT GALINA No Neiss eria Gonor rhoea e RNA detec sondra in this patie nt's sampl e (REFE RENCE RANGE /NORM AL VALUE : NOT DETEC SONDRA) NOTE: This test uses trans cript ion-m ediat ed ampli ficat ion metho d to detec t rRNA from N.Tal orrho eae. A negat galina resul t does not precl ude infec tion. In the case of a negat galina urine resul t, testi ng of an endoc ervic al(fe male) or ureth ral (male ) speci men is recom carlton d if there is high clini elysia suspi cion of infec tion. Due to very high sensi tivit y of Nucle ic Acid Ampli ficat ion Test, false posit galina resul ts may occur . There fore, speci men handl ing is extre jeremie impor tant. In patie nts in whom the disea se is unlik paulo, addit ional sampl e for testi ng shoul d be consi dered after an initi al posit galina resul t. The perfo rmanc e aris cteri stics of this test have not been evalu ated in child [place]. The Aptim a Combo 2 assay is not inten ded for the evalu ation of suspe cted sexua l abuse or for other medic o-leg al indic ation s. The order ing provi yara shoul d asses s if the patie nt had conse nsual sex witho ut risk of sexua l abuse . Consu lt [facility] if neede d. Conta ct phone numbe r . Thera peuti c failu re or succe ss canno t be deter mined with the Aptim a Combo 2 assay since nucle ic acid may persi st follo wing appro priat e antim icrob ial thera py. The Cente rs for Disea se Contr ol and Preve ntion ([facility]) recom mends confi rmato ry retes ting using cultu re or a diffe rent nucle ic acid ampli ficat ion test when posit galina resul ts occur , if indic ated. Not Available [facility] [address], [place], [address], 07/10/2022 13:07:00 07/10/1907/09/2022 [facility] results Patie nt Name: ANGEL ROLDAN nt : 1985 (Age: 36) Lab Acces cherise #: [id number] Colle ction Date: 023 Acces cherise Date: 023 Sign Out Date: 2022 Tissu e Sourc e: 1: THINP REP PROFESSOR OF SPECIAL EDUCATION PAP TEST, CERVI ELYSIA: Final Diagn osis: NEGAT GALINA FOR INTRA EPITH ELIAL LESIO N OR MALMARIELENA JAIME . Satis facto ry for evalu ation . Endoc ervic al/tr ansfo rmati on zone prese nt. Clini elysia Histo ry: Date of Last Menst rual Perio d: 06-25 Menst rual Histo ry: not avail able Contr acept galina Histo ry: not avail able Ancil reanna Testi ng: HPV (ASCU S) Chlam ydia/ GC Case image d by the ThinP rep Imagi ng Syste m with collin tejada or jacoby casiano Perfo rmed at [facility] ate Refer ence Labor at[facility] depar tment of Cytol ogy, [address] [place] Clini elysia Histo ry (othe r): Z01.4 19 LPS 03-22 NEGAT GALINA ROUTI NE SCREE N Phone #: [phone], On-Ca ll Patho logis t: [id number] Not Available [facility] [address] [place], [address], 07/18/2022 10:54:49 07/23/19 23 07/22/2022 SYPHI LIS TESTI NG syphilis screen by shima (neg) normal NEGAT GALINA Refer ence range : Negat galina This test was perfo rmed on the Abbot t Archi tect immun oassa y syste m. Not Available [facility] [address], [place], [address], 07/22/2022 20:25:57 07/23/19 23 07/22/2022 SYPHI LIS TESTI NG RPR titer result NOT INDICA SONDRA Not Available [facility] [address], [place], [address], 07/22/2022 20:25:57 07/23/19 23 07/22/2022 SYPHI LIS TESTI NG tppa result NOT INDICA SONDRA Not Available [facility] [address], [place], [address], 07/22/2022 20:25:57 07/23/19 23 07/22/2022 SYPHI LIS TESTI NG syphilis interpretati on Indic ative of the absen ce of infec tion with Trepo nemal palli dum. Test may be negat galina in cases of incub ating or early prima ry syphi lis. Consi yara repea t testi ng in sever al weeks if clini elysia suspi cion is high. Not Available [facility] [address] [place], [address], 07/22/2022 20:25:57 07/23/19 23 07/22/2022 ACUTE HEPAT ITIS PROFI LE hep. B surf. Ag (neg) normal NEGAT GALINA Refer ence range : Negat galina This test was perfo rmed on the Abbot t Ar[employer] tect immun oassa y syste m. Not Available [facility] [address] [place], [address], 07/22/2022 20:25:58 07/23/19 23 07/22/2022 ACUTE HEPAT ITIS PROFI LE anti hep. A IgM (neg) normal NEGAT GALINA This test was perfo rmed on the Ab[employer] t Archi tect immun oassa y syste m. Refer ence range : Negat galina Not Available [facility] [address] [place], [address], 07/22/2022 20:25:58 07/23/19 23 07/22/2022 ACUTE HEPAT ITIS PROFI LE anti-hepatit is C (neg) normal NEGAT GALINA Refer ence range : Negat galina This test was perfo rmed on the Abbot t Archi tect immun oassa y syste m. Not Available [facility] [address] [place], [address], 07/22/2022 20:25:58 07/23/19 23 07/22/2022 ACUTE HEPAT ITIS PROFI LE hep.B core IgM NEGAT GALINA Refer ence range : Negat galina This test was perfo rmed on the Abbot t Archi tect immun oassa y syste m. Not Available [facility] [address] [place], [address], 07/22/2022 20:25:58 07/23/19 23 07/22/2022 HIV AB-AG 4TH GENER ATION result 4TH gen HIV Ab-Ag (neg) normal NEGAT GALINA Negat galina for antib odies to HIV 1 and HIV 2 and P24 antig en. Refer ence range : Negat galina Addit ional note: Writt en patie nt autho rizat ion is requi red for each separ ate relea se of this test resul t. This test was perfo rmed on the Ab[employer] Ar[employer] tect immun oassa y syste m. Not Available [facility] [address] [place], [address], 07/22/2022 23:33:36 07/23/19 23 07/23/2022 HSV 1/2 IGG ANTIB JOYCE herpes simplex 1 IgG Ab >8.0 IgG antib joyce to HSV-1 detec sondra. Testi ng perfo rmed by the Bio-R ad BioPl ex 2200 multi plex flow immun oassa y syste m Not Available [facility] [address], [place], [address], 07/23/2022 14:47:50 07/23/19 23 07/23/2022 HSV 1/2 IGG ANTIB JOYCE hsv 2 IgG Ab <0.2 No HSV-2 IgG antib odies detec sondra. Patie nt is presu med not to have had a previ ous HSV-2 infec tion. Testi ng perfo rmed by the Bio-R ad BioPl ex 2200 multi plex flow immun oassa y syste m Not Available [facility] [address], [place], [address], 07/23/2022 14:47:50 11/11/19 22 11/10/2021 [place], juan j t No observ ation record ed. [address], [address], 11/11/2021 08:56:32 11/11/19 22 11/10/2021 MAMMO , diagn ostic , digit al, bilat eral No observ ation record ed. [address], [address], 11/11/2021 08:56:32 08/12/23 2111/10/2021 MAMMO , diagn ostic , digit al, bilat eral No observ ation record ed. Not Available 12/2021 08:56:32 Result Notes None recorded. Problems Name Problem SNOMED Code Status Onset Date Resolution Date Notes Provider Name and Address Organization Details Recorded Time Endometri osis (clinical ) 813504040 Active 2020 JAYLA Copeland in [facility], 1 10:29:08 Attention deficit hyperacti vity disorder 884346450 Active 2020 JAYLA Copeland in [facility], 1 10:38:08 COVID-19 017945336 Active 2021 JAYLA Copeland in [facility], 2 09:59:46 SARS-CoV- 2 Active 2021 she believes she caught it at a New Year[employer] [place] green party Ling Gonzalez MD [address], [place], [address], [place] [facility], 2 11:22:50 Family history of breast cancer 575035748 Active 2021 Ling Gonzalez MD [address], [place], [address], [place] [facility], 2 11:32:35 Genetic mutation 13569228 Active 2021 Ling Gonzalez MD [address], [place], [address], [place] [facility], 2 09:18:46 At high risk for malignant neoplasm of breast 694723259480 102 Active 2023 Ling Gonzalez MD [address], [place], [address], [place] [facility], 4 09:30:58 Problem Notes None recorded. Procedures Surgical History Date Name Laterality Status Provider Name and Address Organization Details Recorded Time 07/09/19 16 Removal of ovarian cyst(s) completed Ling Gonzalez MD [address] [place] [address],[address], [place], [address], [place] [facility], 02/19/2021 11:47:50 02/21/20 04 Appendectomy completed Selina Gould [place] [facility], 02/19/2021 10:40:54 Imaging Results Imaging Date Name Status LastModified by Organiz ation Details LastModified Time 11/10/2021 US, breast completed [address], [address], 11/11/2021 08:56:32 11/10/2021 MAMMO, diagnostic, digital, bilateral completed [address], [address], 11/11/2021 08:56:32 11/10/2021 MAMMO, diagnostic, digital, bilateral [email or web address] Information not available 11/11/2021 08:56:32 Procedure Notes None recorded. Medical Equipment None Reported. Allergies No known drug allergies Medications Name Sig Start Date Stop Date Status Note LastModified by Organization Details LastModified Time bupropion HCl SR 150 mg tablet,12 hr sustained-r elease TAKE ONE TABLET BY MOUTH EVERY DAY IN THE MORNING active Not Available Not Available No t Available trazodone 50 mg tablet TAKE 1/2 TO 1 TABLET BY MOUTH DAILY AT BEDTIME NEEDED active Not Available Not Available No t Available fluconazole 150 mg tablet TAKE ONE TABLET BY MOUTH EVERY 3 DAYS FOR 2 DOSES 12/04 completed Not Available Not Available Not Available methylpheni date 10 mg tablet TAKE ONE TABLET BY MOUTH TWICE A DAY NEEDED 02/19 completed Not Available Not Available Not Available sucralfate 100 mg/mL oral suspension TAKE 10ML BY MOUTH AT BEDTIME NEEDED FOR ACID REFLUX active Not Available Not Available No t Available dextroamphe tamine-amph etamine 10 mg tablet TAKE ONE TABLET BY MOUTH TWO TIMES A DAY active Not Available Not Available No t Available sumatriptan 50 mg tablet TAKE 1 TABLET BY MOUTH ONCE NEEDED FOR MIGRAINE FOR UP TO 1 DOSE active Not Available Not Available No t Available omeprazole 40 mg capsule,del ayed release TAKE ONE CAPSULE BY MOUTH EVERY DAY 06/25 completed Not Available Not Available Not Available propranolol 10 mg tablet TAKE ONE TABLET BY MOUTH TWICE A DAY NEEDED active Not Available Not Available No t Available DOK 100 mg capsule TAKE ONE CAPSULE BY MOUTH TWICE A DAY 02/19 completed Not Available Not Available Not Available pantoprazol e 40 mg tablet,anna yed release TAKE ONE TABLET BY MOUTH EVERY DAY 30 MINUTES BEFORE BREAKFAST active Not Available Not Available No t Available buspirone 10 mg tablet TAKE 1 TABLET BY MOUTH TWICE A DAY active Not Available Not Available No t Available fluoxetine 10 mg capsule TAKE 1 CAPSULE BY MOUTH EVERY MORNING ALONG WITH 20MG CAPSULE FOR A TOTAL DOSE OF 30MG active Not Available Not Available No t Available bisacodyl 5 mg tablet,anna yed release 12/04 completed Not Available Not Available Not Available lorazepam 1 mg tablet TAKE 1/2-1 TABLET BY MOUTH ONCE DAILY NEEDED. active Not Available Not Available No t Available polyethylen e glycol 3350 17 gram/dose oral powder active Not Available Not Available Not Available hydroxyzine HCl 10 mg tablet TAKE 1/2 TO 1 TABLET BY MOUTH AT BEDTIME NEEDED active Not Available Not Available No t Available ondansetron 4 mg disintegrat ing tablet DISSOLVE ONE TABLET BY MOUTH EVERY 6 HOURS NEEDED NAUSEA active Not Available Not Available No t Available fluoxetine 20 mg capsule TAKE ONE CAPSULE BY MOUTH EVERY DAY IN THE MORNING active Not Available Not Available No t Available etonogestre l 0.12 mg-ethinyl estradiol 0.015 mg/24 hr vaginal ring INSERT 1 RING VAGINALLY FOR 3 WEEKS OUT OF EVERY 4 WEEKS 10/27 completed Not Available Not Available Not Available ferrous gluconate 324 mg (38 mg iron) tablet TAKE ONE TABLET BY MOUTH EVERY DAY 06/25 completed Not Available Not Available Not Available FeroSul 325 mg (65 mg iron) tablet TAKE ONE TABLET BY MOUTH EVERY DAY WITH BREAKFAST 02/19 completed Not Available Not Available Not Available Xulane 150 mcg-35 mcg/24 hr transdermal patch APPLY ONE PATCH TO SKIN EVERY WEEK active Not Available Not Available No t Available Vitals Date Recorded Body height Body mass index (BMI) Body weight Heart rate Systolic blood pressure Diastolic blood pressure Provider Name and Address Organization Details Last Updated DateTime 2 167.64 cm 24.7 kg/m2 82101.6 3 g 76 /min 133 mm[Hg] 67 mm[Hg] Selina Hand in [facility], 2 11:07:32 Date Recorded Body height Body mass index (BMI) Body weight Provider Name and Address Organization Details Last Updated DateTime 11/07/2021 167.64 cm 24.7 kg/m2 77725.63 g Selina Hand in [facility], 11/07/2021 11:04:26 Date Recorded Body height Body mass index (BMI) Body weight Heart rate Systolic blood pressure Diastolic blood pressure Provider Name and Address Organization Details Last Updated DateTime 2 167.64 cm 24.4 kg/m2 77145.4 5 g 69 /min 127 mm[Hg] 81 mm[Hg] Selina Hand in [facility], 2 08:43:29 Date Recorded Body height Body mass index (BMI) Body weight Body temperature Heart rate Systolic blood pressure Diastolic blood pressure Provider Name and Address Organization Details Last Updated DateTime 3 167.64 cm 27.3 kg/m2 75590.5 5 g 97.4 [degF] 82 /min 131 mm[Hg] 93 mm[Hg] Nabila Hand in [facility], 3 10:32:00 Date Recorded Body height Body mass index (BMI) Body weight Heart rate Body temperature Systolic blood pressure Diastolic blood pressure Provider Name and Address Organization Details Last Updated DateTime 3 167.64 cm 27 kg/m2 67518.9 3 g 75 /min 97.2 [degF] 116 mm[Hg] 82 mm[Hg] Nabila Hand in [facility], 3 13:20:39 Social History Question Answer Notes LastModified by Organization Details LastModified Time Tobacco Smoking Status Never Smoker JAYLA Copeland in [facility], 02/19/2021 10:39:28 What Is Your Level Of Alcohol Consumption? Occasional Weekends Information not available 02/19/2021 How Many Years Have You Consumed Alcohol? 18 Information not available 02/19/2021 What Is Your Level Of Caffeine Consumption? Heavy Information not available 02/19/2021 In The 14 Days Before Symptom Onset, Have You Had Close Contact With A Laboratory-confi rmed COVID-19 While That Case Was Ill? No Information not available 02/19/2021 In The 14 Days Before Symptom Onset, Have You Had Close Contact With A Person Who Is Under Investigation For COVID-19 While That Person Was Ill? No Information not available 02/19/2021 Have You Been To An Area Known To Be High Risk For COVID-19? No Information not available 02/19/2021 Are You Currently Employed? Yes Information not available 02/19/2021 What Is The Highest Grade Or Level Of School You Have Completed Or The Highest Degree You Have Received? [id number] Working [employer]ards [employer] Information not available 02/19/2021 Who Is Your Employer? 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 No Information not available 02/19/2021 To Which Gender Do You Self-identify? Female Information not available 02/19/2021 What Was The Date Of Your Most Recent Tobacco Screening? 08/07/2021 Information not available 08/07/2021 What Is Your Relationship Status? Single Information not available 06/25/2022 Are You Sexually Active? Yes Information not available 06/25/2022 Do You Feel Stressed (tense, Restless, Nervous, Or Anxious, Or Unable To Sleep At Night)? [id number] Information not available 06/19/2021 Do You Use Any Illicit Or Recreational Drugs? No Information not available 02/19/2021 Do You Or Have You Ever Used Any Other Forms Of Tobacco Or Nicotine? No Information not available 02/19/2021 How Many Days In The Past Year Have You Consumed 4 Or More Drinks? 0 Information not available 02/19/2021 Sex: Female Functional Status Question Answer Note LastModified by Organizat ion Details LastModified Time What is your exercise level? Occasional Information not available 02/19/2021 Mental Status None recorded. Family History Relationship Description Onset Age of this Age Resolved Age Notes LastModified by Organization Details LastModified Time Father No current problems or disability Not available 02/19 10:35:10 Mother No current problems or disability Not available 02/19 10:35:10 Maternal Aunt Malignant tumor of breast 47 48 [email or web address] Not available 2021 11:22:59 Maternal Aunt Malignant tumor of breast 51 51 [email or web address] Not available 2021 11:23:29 Medical History Condition Response Anesthesia complications N High Blood Pressure N Candidate for MyRisk panel N Autoimmune Condition N Kidney or Bladder Problems N Thyroid Problems N Depression N Lung Disease N GI Problems N Defects or Inherited Disease N Anemia N History of Ovarian Cancer N History of Breast Cancer N KUSUM exposure N BRCA testing in past N Osteopenia N Psychiatric Illness N Anxiety Disorder N Diabetes N Arthritis N Headaches or Migraines N Infertility N Asthma N History of Cancer N Endometriosis N Hepatitis N Heart Disease N Hypertension N Osteoporosis N Gynecological History Statement/Question Response Flow Moderate Date of LMP 06/25/2022 Frequency of Cycle (Q days) 27 Menses Monthly Y Duration of Flow (days) 5 Age at Menarche 8 Current Control Method Patch Obstetrics History GPAL:G 0 P 0 0 0 0 Immunizations Vaccine Type Date Status Note Provider Nam e and Address Organization Details Recorded Time COVID-19, mRNA, LNP-S, PF, 30 mcg/0.3 mL dose 9 completed JAYLA Copeland in [facility], 02/19/2021 10:37:28 COVID-19, mRNA, LNP-S, PF, 30 mcg/0.3 mL dose 1 completed JAYLA Copeland in [facility], 02/19/2021 10:37:51 Influenza, split virus, quadrivalent, preservative 1 completed JAYLA Simmons in [facility], 06/19/2021 10:41:26 Influenza, MDCK, quadrivalent, PF 9 completed Nabila Meczywor null, [place] - [facility], 06/25/2022 10:31:48 Influenza, MDCK, quadrivalent, PF 1 completed Nabila Meczywor null, [place] - [facility], 06/25/2022 10:31:48 COVID-19, mRNA, LNP-S, PF, 30 mcg/0.3 mL dose 1 completed Nabila Meczywor null, [place] - [facility], 06/25/2022 10:31:48 COVID-19, mRNA, LNP-S, PF, 30 mcg/0.3 mL dose 0 completed Nabila Meczywor null, [place] - [facility], 06/25/2022 10:31:48 Tdap 1 completed Nabila Meczywor null, [place] - [facility], 06/25/2022 10:31:48 Influenza, split virus, quadrivalent, PF 0 completed Nabila Meczywor null, [place] - [facility], 06/25/2022 10:31:48 Influenza, MDCK, quadrivalent, PF 2 completed Nabila Meczywor null, [place] - [facility], 07/09/2022 13:20:58 Past Encounters Encounter ID Performer Location Encounter Start Date Encounter Closed Date Diagnosis/Indication Diagnosis SNOMED-CT Code Diagnosis ICD10 Code Diagnosis Note [id number] MD LING Bledsoe MD [address] [place] [address] 02/19/2021 10:20:11 02/19/2021 12:02:01 Pain in pelvis 98433295 R10.2 Attention deficit hyperactivity disorder 664578793 F90.9 Endometrio sis (clinical) 830987931 N80.9 [id number] MD LING Bledsoe MD [address] [place] [address] 05/05/2021 09:51:26 05/05/2021 13:26:05 Candidal vulvovaginitis 96876994 B37.3 Lesion of vulva 82148148 6 N90.89 Venereal d isease screening 259949908 Z11.3 SARS-CoV-2 987072647 U07 .1 [id number] MD LING Bledsoe MD [address] [place] [address],[place] [address] 06/19/2021 10:35:01 06/19/2021 13:12:10 Specialized medical examination 87542767 Z01.419 Venereal d isease screening 125938639 Z11.3 Endometrio sis (clinical) 660668813 N80.9 [id number] MD LNIG Bledsoe MD [address] [place] [address],[place] [address] 08/07/2021 10:35:55 08/07/2021 14:56:15 Endometriosis (clinical) 287624525 N80.9 Uses trans dermal contraception 555647118 Z79.3 [id number] MD LING Bledsoe MD [address] [place] [address],[place] [address] 10/27/2021 11:01:32 10/27/2021 13:14:37 Mass of right breast 1724288688 3266985 N63.10 [id number] MD LING Bledsoe MD [address] [place] [address],[place] [address] 11/07/2021 10:59:32 11/07/2021 11:41:26 Family history of breast cancer 310859087 Z80.3 [id number] MD LING Bledsoe MD [address] [place] [address],[place] [address] 12/04/2021 08:42:03 12/04/2021 11:56:55 Mass of right breast 1903329185 7334070 N63.13 [id number] MD LING Bledsoe MD [address] [place] [address],[place] [address] 06/25/2022 10:29:29 06/25/2022 12:11:33 [id number] MD LING Bledsoe MD [address] [facility] [address] [place] [address] 07/09/2022 13:17:43 07/09/2022 14:52:13 Specialized medical examination 32862223 Z01.419 Venereal d isease screening 695572249 Z11.3 Uses trans dermal contraception 835733173 Z79.3 Health Concerns Section Related Observation LastModified by Organization Detai ls LastModified Time None Recorded Concern Status LastModified by Organization Details LastModified Time None Recorded Advance Directives Directive None Recorded Payers Encounter Date Sequence Insurance Name Policy Number Policy Ferrer Covered Member ID Ferrer Member ID Guarantor Name 10/27/2021 1 [employer] [place] [id number] Nigel Mihaila [id number] Nigel Mihaila 11/07/2021 1 [employer] [place] [id number] Nigel Mihaila [id number] Nigel Mihaila 12/04/2021 1 [employer] [place] [id number] Nigel Mihaila [id number] Nigel Mihaila 06/25/2022 1 [employer] [place] [id number] Nigel Mihaila [id number] Nigel Mihaila 07/09/2022 1 [employer] [place] [id number] Nigel Mihaila [id number] Nigel Mihaila Notes Date Note Type Note Provider Name and Address Organization Details Recorded Time 10/27/2021 text/html She is here because she noted a small lump in her right breast a few weeks ago, it is unchanged in size. She is concerned because she has two maternal aunts who had breast cancer, one in her 40s and one in her 50s. She believes it is related in timing to the start of her Xulane patches. She does note that her severe dysmenorrhea is much improve with the patch and she would prefer to stay on it if possible. Ling Gonzalez MD [address], [place], [address], [facility], 10/27/2021 13:08:21 11/07/2021 text/html She is her for BRCA testing, has two maternal aunts who had breast cancer, at ages 47 and 51, both are . Ling Gonzalez MD [address], [place], [address], [facility] - [facility], 11/07/2021 11:34:08 12/04/2021 text/html S?he is her e to repeat breast exam after testing did not find any abnormal mass. She notes the right breast cyst has not been palpable to her in over a week. Ling Gonzalez MD [address], [place], [address], [facility] - [facility], 12/04/2021 10:36:39 07/09/2022 text/html She is here for annual, had switched to patch from ring, is happy, no problems with it. We discussed weight limit issues, she is aware. note from 2021: She is here for annual exam. she had used the brand name Nuvaring for years wiht no problem, then she was switched to the generic ring in summer of 2020. She developed nausea and irregular vaginal spotting, The nausea was so severe that she had to stop using the ring during hte first month she used it, and the nausea resolved soon after the ring was removed.She had no issues until she just restarted this rx, they gave her the generic ring, and again the severe nausea, and the spotting, have restarted. Ling Gonzalez MD [address], [place], [address], [facility] - [facility], 07/09/2022 13:58:42 OBGyn Episode No OBEpisode recorded.
--- OUTSIDE RECORDS SUMMARY | 2024-05-12 09:01 | XMS_ITS | Data Portability ---
Author Organization JARETT Vivas s, [address] Address [address] [place] [address] Care Team Providers Care Pharmacy Graduate Intern Name Role Phone RANDY CALLOWAY Primary Care Provider Assessment No assessment recorded. Plan of Treatment Reminders Order Date Submit Date Provider Last Modified By Organization Details Last Modified Time Details Appointments None recorded. Lab urinalysis , dipstick 2024 025 [email or web address] _[facility], [address] [place] [address], [address], 5 09:44:15 test, urine 2024 025 [email or web address] _[facility], [address] [place] [address], [address], 5 09:47:30 Referral None recorded. Procedures None recorded. Surgeries None recorded. Imaging None recorded. Medication Orders Macrobid 100 mg capsule 2024 025 [id number], [address] [place], [address], 5 09:44:18 Patient TargetsNo targets recorded. Patient Instructions Encounter Date Encounter Id Patient Instructions Last Modified By Organization Details Last Modified Time 05/05/2024 [id number] Urinary Tract Infection (UTI) in [facility] Instructions [email or web address] Not available 05/05/2024 09:44:15 Reason for Referral None Reported. Results Created Date Observation Date Name Description Value Unit Range Abnormal Flag Note LastModifiedBy Organization Detail LastModifiedTime 05/05/1905/05/2024 pregn helen test, urine Unknown Analyte negati ve Not Available [address] [place] [address], [address], 05/05/2024 09:47:19 05/05/1905/05/2024 urina lysis , dipst ick Unknown Analyte Not Available [address] [place] [address], [phone], 05/05/2024 09:30:51 05/05/1905/05/2024 urina lysis , dipst ick Unknown Analyte Not Available [address] [place] [address], [phone], 05/05/2024 09:30:51 05/05/1905/05/2024 urina lysis , dipst ick Unknown Analyte Not Available [address] [place] [address], [phone], 05/05/2024 09:30:51 05/05/1905/05/2024 urina lysis , dipst ick Unknown Analyte Not Available [address] [place] [address], [address], 05/05/2024 09:30:51 05/05/1905/05/2024 urina lysis , dipst ick Unknown Analyte Not Available [address] [place] [address], [address], 05/05/2024 09:30:51 05/05/1905/05/2024 urina lysis , dipst ick Unknown Analyte Not Available [address] [place] [address], [address], 05/05/2024 09:30:51 05/05/19 25 05/05/2024 urina lysis , dipst ick Unknown Analyte Not Available [facility] [address] [place] [address], [address], 05/05/2024 09:30:51 05/05/19 25 05/05/2024 urina lysis , dipst ick Unknown Analyte Not Available [facility], [address], 05/05/2024 09:30:51 05/05/19 25 05/05/2024 urina lysis , dipst ick Unknown Analyte Not Available _ [facility], [address], 05/05/2024 09:30:51 05/05/19 25 05/05/2024 urina lysis , dipst ick Unknown Analyte Not Available _ [address], [address], 05/05/2024 09:30:51 05/05/19 25 05/05/2024 urina lysis , dipst ick Unknown Analyte Not Available [address], [address], 05/05/2024 09:30:51 05/05/19 25 05/05/2024 urina lysis , dipst ick Unknown Analyte Not Available _ [address], [address], 05/05/2024 09:30:51 05/05/1905/05/2024 urina lysis , dipst ick Unknown Analyte Not Available [address], [address], 05/05/2024 09:30:51 05/05/19 25 05/05/2024 urina lysis , dipst ick Unknown Analyte Not Available _ [facility] [address] [place], [address], 05/05/2024 09:30:51 05/05/1905/05/2024 urina lysis , dipst ick Unknown Analyte Not Available [address]_ [facility], [address], 05/05/2024 09:30:51 05/05/1905/05/2024 urina lysis , dipst ick Unknown Analyte Not Available _ [facility] [address] [place] [address], [address], 05/05/2024 09:30:51 05/05/1905/05/2024 urina lysis , dipst ick Unknown Analyte Not Available _ [facility], [address], 05/05/2024 09:30:51 05/05/1905/05/2024 urina lysis , dipst ick Unknown Analyte Not Available _ [facility], [address], 05/05/2024 09:30:51 05/05/1905/05/2024 urina lysis , dipst ick Unknown Analyte Not Available [facility], [address], 05/05/2024 09:30:51 05/05/1905/05/2024 urina lysis , dipst ick Unknown Analyte Not Available [facility]99[facility], [address], 05/05/2024 09:30:51 05/05/1905/05/2024 urina lysis , dipst ick Unknown Analyte Not Available [address]_ [facility], [address], 05/05/2024 09:30:51 05/05/1905/05/2024 urina lysis , dipst ick Unknown Analyte Not Available [address] [place], [place] [address] [address] [place], [address], 05/05/2024 09:30:51 05/05/1905/05/2024 urina lysis , dipst ick Unknown Analyte Not Available [address] [place] [address] [address] [place], [address], 05/05/2024 09:30:51 Result Notes None recorded. Problems Name Problem SNOMED Code Status Onset Date Resolution Date Notes Provider Name and Address Organization Details Recorded Time Attention deficit hyperactivity disorder 876863133 Active Natasha kimble, [place] - [facility] 4 15:03:09 Depressive disorder 56882502 Active Natasha kimble, [place] - [facility] 4 15:03:15 Insomnia 650308747 Active Natasha kimble, [place] - [facility] 4 15:03:24 Problem Notes None recorded. Procedures Surgical History Date Name Laterality Status Provider Name and Address Organization Details Recorded Time Suture/Staple Removal Providers completed JARETT Magaña [address] [place], [place] [address], [address], [place] - [facility] 11/27/2023 15:09:54 Imaging Results None recorded. Procedure Notes None recorded. Medical Equipment None Reported. Allergies No known drug allergies Medications Name Sig Start Date Stop Date Status Note LastModified by Organization Details LastModified Time bupropion HCl SR 150 mg tablet,12 hr sustained-r elease TAKE ONE TABLET BY MOUTH EVERY DAY IN THE MORNING 11/26 completed Not Available Not Available Not Available trazodone 50 mg tablet TAKE 1/2 TO 1 TABLET BY MOUTH DAILY AT BEDTIME NEEDED active Not Available Not Available No t Available dextroamphe tamine-amph etamine 10 mg tablet TAKE ONE TABLET BY MOUTH TWICE A DAY 11/26 completed Not Available Not Available Not Available sumatriptan 50 mg tablet TAKE ONE TABLET BY MOUTH ONCE NEEDED FOR MIGRAINE FOR UP TO 1 DOSE 05/05 completed Not Available Not Available Not Available Macrobid 100 mg capsule Take 1 capsule every 12 hours by oral route for 5 days. 2024 active Not Available Not Available Not Avai lable amoxicillin 875 mg tablet TAKE ONE TABLET BY MOUTH EVERY 12 HOURS 11/26 completed Not Available Not Available Not Available pantoprazol e 40 mg tablet,anna yed release TAKE ONE TABLET BY MOUTH EVERY MORNING BEFORE BREAKFAST active Not Available Not Available No t Available oseltamivir 75 mg capsule TAKE ONE CAPSULE BY MOUTH TWICE A DAY 05/05 completed Not Available Not Available Not Available dextroamphe tamine-amph etamine 15 mg tablet TAKE ONE-HALF TO ONE TABLET BY MOUTH TWO TIMES A DAY 11/26 completed Not Available Not Available Not Available fluoxetine 10 mg capsule 11/26 completed Not Available Not Available Not Available lorazepam 1 mg tablet TAKE 1/2 TO 1 TABLET ONCE DAILY NEEDED active Not Available Not Available No t Available fluoxetine 20 mg capsule TAKE ONE CAPSULE BY MOUTH EVERY MORNING active Not Available Not Available No t Available cyclobenzap rine 5 mg tablet TAKE ONE TABLET BY MOUTH DAILY AT BEDTIME NEEDED FOR MUSCLE SPASMS 11/26 completed Not Available Not Available Not Available Xulane 150 mcg-35 mcg/[address] PATCH ONTO THE SKIN ONCE A WEEK CONTINUOU SLY CYCLE active Not Available Not Available No t Available Vitals Date Recorded Body height Body mass index (BMI) Body weight Oxygen saturation Oxygen saturation in Arterial blood by Pulse oximetry Heart rate Respiratory rate Body temperature Systolic blood pressure Diastolic blood pressure Provider Name and Address Organization Details Last Updated DateTime 4 170.18 cm 24.3 kg/m2 74230.8 2 g 98 % 98 % 76 /min 18 /min 98.8 [degF] 125 mm[Hg] 92 mm[Hg] Natasha DENSON - [facility] 4 15:02:32 Date Recorded Body height Body mass index (BMI) Body weight Oxygen saturation Oxygen saturation in Arterial blood by Pulse oximetry Pain severity - 0-10 verbal numeric rating [Score] - Reported Heart rate Respiratory rate Body temperature Systolic blood pressure Diastolic blood pressure Provider Name and Address Organization Details Last Updated DateTime 5 170.18 cm 25.1 kg/m2 81771.7 8 g 100 % 100 % 7 83 /min 20 /min 98 [degF] 115 mm[Hg] 77 mm[Hg] Gage Perez PA - [facility] 5 09:28:27 Social History Question Answer Notes LastModified by Organizat ion Details LastModified Time Tobacco Smoking Status Never Smoker Natasha Avina null, [place] - [facility] 11/27/2023 15:03:41 What Is Your Level Of Alcohol Consumption? Occasional [email or web address] Information not available 11/27/2023 Are You Currently Employed? Yes [email or web address] Information not available 11/27/2023 Have You Had A Flu Shot This Season? Yes [email or web address] Information not available 11/27/2023 What Is Your Relationship Status? Single [email or web address] Information not available 11/27/2023 Are You Passively Exposed To Smoke? No [email or web address] Information no t available 11/27/2023 Do You Use Any Illicit Or Recreational Drugs? No [email or web address] Information not available 11/27/2023 Have You Recently Traveled Abroad? Yes [place] [email or web address] Information not available 11/27/2023 Do You Or Have You Ever Used Any Other Forms Of Tobacco Or Nicotine? No [email or web address] Information not available 11/27/2023 Sex: Unknown Functional Status None recorded. Mental Status None recorded. Family History Nothing Reported. Medical History No medical history recorded. Gynecological History Statement/Question Response Date of LMP 11/13/2023 Is there any chance of ? No LMP Definite Obstetrics History GPAL:G 0 P 0 0 0 0 Immunizations Vaccine Type Date Status Note Provider Nam e and Address Organization Details Recorded Time Influenza, split virus, quadrivalent, preservative 1 completed Gage Perez null, [place] - [facility] 05/05/2024 09:29:15 Influenza, MDCK, quadrivalent, PF 2 completed Gage Perez null, [place] - [facility] 05/05/2024 09:29:15 Influenza, MDCK, quadrivalent, PF 9 completed Gage Perez null, PA - [facility] 05/05/2024 09:29:15 Influenza, MDCK, quadrivalent, PF 1 completed Gage Fontenot Chris null, PA - [facility] 05/05/2024 09:29:15 HepB-CpG 3 completed Gage Fontenot Chris null, PA - [facility] 05/05/2024 09:29:15 COVID-19, mRNA, LNP-S, PF, 30 mcg/0.3 mL dose 1 completed Gage Fontenot Chris null, [place] - [facility] 05/05/2024 09:29:15 COVID-19, mRNA, LNP-S, PF, 30 mcg/0.3 mL dose 1 completed Gage Fontenot Chris null, PA - [facility] 05/05/2024 09:29:15 COVID-19, mRNA, LNP-S, PF, 30 mcg/0.3 mL dose 9 completed Gage Fontenot Chris null, PA - [facility] 05/05/2024 09:29:15 COVID-19, mRNA, LNP-S, PF, 30 mcg/0.3 mL dose 0 completed Gage Fontenot Chris null, [place] - [facility] 05/05/2024 09:29:15 Tdap 1 completed Gage Fontenot Chris null, PA - [facility] 05/05/2024 09:29:15 Influenza, split virus, quadrivalent, PF 3 completed Gage Fontenot Chris null, [place] - [facility] 05/05/2024 09:29:15 Influenza, split virus, quadrivalent, PF 0 completed Gage Fontenot Chris null, [place] - [facility] 05/05/2024 09:29:15 Past Encounters Encounter ID Performer Location Encounter Start Date Encounter Closed Date Diagnosis/Indication Diagnosis SNOMED-CT Code Diagnosis ICD10 Code Diagnosis Note [id number] [facility] [address] [address] 10/02/2020 17:59:34 10/02/2020 19:14:16 [id number] [facility] [address] [address] 03/20/2021 11:20:00 03/20/2021 12:54:56 [id number] JARETT Magaña [address] [place] [address] 11/27/2023 14:51:22 11/27/2023 15:10:22 Removal of amy 19735893 Z48.02 Amy removed easily without complicati on. Can return to normal hygiene practices. [id number] [facility]T [facility]ARCIA [address] [address] 05/05/2024 09:17:19 05/05/2024 09:55:00 Acute urinary tract infection 515605384 N39.0 Signs and Symptoms c/w UTIUA c/w UTIRx Antibiotic Take your antibiotic with food. Eat a yogurt daily or take a probiotic while you are taking the antibiotic . recommend push fluids, water, cranberry juiceavoid holding urinepract ice postcoital urination Unable to send UCx per usual practice as clinic is closing today and no send out lab orders will be followed. Patient advised to follow up as needed for worsening symptoms or no improvemen t. Discussed concerning red flags with patient and reasons to follow up in the Emergency Department urgently. Patient expressed understand ing of and agreement with the plan as outlined above. Health Concerns Section Related Observation LastModified by Organization Detai ls LastModified Time None Recorded Concern Status LastModified by Organization Details LastModified Time None Recorded Advance Directives Directive None Recorded Payers Encounter Date Sequence Insurance Name Policy Number Policy Ferrer Covered Member ID Ferrer Member ID Guarantor Name 10/02/2020 1 [facility] [id number] Nigel E Mihaila [id number] Nigel Mihaila 03/20/2021 1 [facility] [employer] ([place]) [id number] Nigel E Mihaila [id number] Nigel Mihaila 11/27/2023 1 [facility] [employer] ([place]) [id number] Nigel E Mihaila [id number] Nigel Mihaila 05/05/2024 1 [facility] ([facility]) [id number] Nigel Gibbs [id number] Nigel Pazhildahai Notes Date Note Type Note Provider Name and Address Organization Details Recorded Time 11/27/2023 text/html 38 y/o female he re for staple removal from the top of her head, placed 10 days ago, no pain JARETT Magaña [address] [place], [address], [place] - [facility] 11/27/2023 15:10:56 05/05/2024 text/html DysuriaReported bypatient.Notes:38 yo female c/o c/o dysuria x 4 d+ increased frequency+ increased urgencyno incontinence+ pressureno malodorno blood in her urineno vaginal bleedingno vaginal dischargeno back painno rashno feverno nausea or vomitingno MS change JARETT GARCIA [address] [place], [address], [place] - [facility] 05/08/2024 10:11:58 OBGyn Episode No OBEpisode recorded.
--- OUTSIDE RECORDS SUMMARY | 2024-05-12 09:02 | XMS_ITS | Clinical Summary ---
Author Organization [facility] Address [address] [place] [address] Care Team Providers Care Cytopathology Technologist Name Role Phone Benito Salinas BUILDINGS AND GROUNDS DIRECTOR Primary Care Provider [phone] Source Comments PLEASE NOTE, if this patient is a minor, it may be UNLAWFUL to discuss sensitive information that is contained in these records (such as FAMILY PLANNING, MENTAL HEALTH or SUBSTANCE ABUSE) with the minor patient's parent or other person without the patient's specific authorization.[facility] Allergies Active Allergy Reactions Criticality Noted Date Comments Bee Sting Swelling 03/09/2015 Only one time when pt was 4 years old. Medications dextroamphetami ne-amphetamine (ADDERALL) 10 mg tablet Take 1 Tablet by mouth 2 (two) times daily 1 Active LORazepam (ATIVAN) 1 mg tablet TAKE ONE HALF TO ONE TABLET BY MOUTH EVERY DAY NEEDED 1 Active FLUoxetine (PROZAC) 20 mg capsule Take 20 mg by mouth every morning 3 Active traZODone (DESYREL) 50 mg tablet TAKE 1/2 TO 1 TABLET BY MOUTH DAILY AT BEDTIME NEEDED 3 Active SUMAtriptan succinate (IMITREX) 50 mg tabletIndicatio ns:Migraine with aura and without status migrainosus, not intractable Take 1 Tablet by mouth 1 (one) time as needed for migraine for up to 1 dose 30 Tablet 2 3 Active cyclobenzaprine (FLEXERIL) 5 mg tabletIndicatio ns:Chronic bilateral low back pain without sciatica Take 1 Tablet by mouth nightly at bedtime as needed for muscle spasms 30 Tablet 4 Active pantoprazole (PROTONIX) 40 mg EC tabletIndicatio ns:Gastroesopha geal reflux disease without esophagitis Take 1 Tablet by mouth every morning before breakfast for 90 days 90 Tablet 4 Active norelgestromin- ethin.estradioL (ORTHO EVRA) 150-35 mcg/24 hr patchIndication s:Endometriosis Place 1 Patch onto the skin once a week Continuously cycle. 12.85 Patch 3 4 Active Active Problems Problem Noted Date Diagnosed Date Memory deficit 01/25/2023 Overview (03/02/2023): 01/13/23 MRI brain is normal 01/26/23 EEG normal. Moderate mixed hyperlipidemia not requiring stat in therapy 01/08/2023 H/O mammogram 01/07/2023 Overview (01/07/2023): Mammo 11/10/21 BIRADS 1 Chronic tension-type headache, not intractable 0 12/23/2020 Ganglion cyst of dorsum of right wrist Overview (08/23/2020): U/S 08/21/20 shows ganglion cyst of R wrist. Anemia, unspecified 05/16/2020 Dyslipidemia 05/16/2020 Papanicolaou smear 05/14/2020 Overview (01/07/2023): Pap smear 12/21/18 at [facility] NILM, neg HPV Pap smear 07/09/22 NILM, neg HPV Polyp of colon 05/03/2020 Lump of right wrist 05/03/2020 Hemorrhoids 05/03/2020 Left ankle sprain 11/06/2019 Overview (11/06/2019): [facility] ED 10/09/19 for L ankle sprain. Advised to f/u with ortho in 1 week for repeat x-rays. 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 06/18/15 Pelvic U/S at [facility] shows interval enlargement of R ovarian endometrioma (7.0 x 5.2 x 6.2 cm). Minimally thickened endometrial stripe, of uncertain significance. Tiny intramural leiomyomia Managed by Zita Eaton CNM. 10/23/15 Diagnostic laparoscopy, right ovarian cystectomy. Findings: 1. Endometriosis with pelvic adhesive disease of the cul-de-sac, 2. Both left and right tubes were adhered laterally to the pelvic wall. 3. A 6 cm endometrioma which was ruptured at capsule was removed. Ovary was initially adhered to the uterus and pelvic floor , at time of cystectomy, R ovary was freed. Mild adhesions of the ascending colon to the lateral wall. F/u 2 weeks post-op and to discuss OCP's for treatment of endometriosis versus encourage fertility secondary to increased success rate prior to the immediate postop period after surgery ADHD (attention deficit hyperactivity disorder) 04/17/2015 Overview (04/17/2015): Per pt report. Seen at at [facility]. [phone]. Previously on Adderall 20mg. Anxiety 04/17/2015 Overview (04/17/2015): Per pt report. Seen at at [facility]. [phone]. Previously managed with Ativan 1mg. Depression 04/17/2015 Overview (04/17/2015): Per pt report. Seen at at [facility]. [phone] Immunizations Name Administration Dates Next Due Flu, Cell Culture based, Pre servative Free, 6m+, Flucelvax 02/27/2019 Flu, Preservative Free 01/07/2023,01/28/2020 Hep B,adult,adjuvanted (HEPLISAV) 01/07/2023 INFLUENZA, SEASONAL, INJECTABLE 01/28/2020 Influenza (FLUBLOK),recombinant,injectable,preservative Free 12/21/2023 [employer] COVID VACCINE, PURPLE CAP, 12+ 03/30/2020 TDAP 12/23/2020 Family History Medical History Relation Name Comments No Known Problems Brother High Cholesterol Mother Hypertension Mother Mental illness Mother Depression Relation Name Status Comments Brother Alive Father Mother Alive Paternal Grandmother Alive Social History Tobacco Use Types Packs/Day Years Used Date Smoking Tobacco: Never Smokeless Tobacco: Never Tobacco Cessation:Counseling Given: Yes Alcohol Use Standard Drinks/Week Comments Yes 0 (1 standard drink = 0.6 oz pur e alcohol) Occasional Social Connections Answer Date Recorded Connectedness 0 12/08/2023 Financial Resource Strain Answer Date R ecorded Financial Resource Strain 0 2018 Stress Answer Date Recorded Stress 0 11/26/2018 Physical Activity Answer Date Recorded Physical Activity 0 11/26/2018 Food Insecurity Answer Date Recorded Food 0 12/30/2023 Transportation Needs Answer Date Record ed Transportation 0 11/26/2018 Housing Stability Answer Date Recorded Housing 0 11/26/2018 Safety and Environment Answer Date Marco Antonio rded Safety 0 01/07/2023 Utilities Answer Date Recorded Utilities 0 11/26/2018 Employment Answer Date Recorded Stress 0 06/23/2021 Comments No Sex and Gender Information Value Date Recorded Sex Assigned at Female 07/14/2017 4:56 AM PDT Legal Sex Female 11:58 PM PST Gender Identity Female 07/14/2017 4:56 AM PDT Sexual Orientation Straight 07/15/2017 7: 53 AM PDT Last Filed Vital Signs Vital Sign Reading Time Taken Comments Blood Pressure 114/82 12/21/2023 2:33 PM EDT Pulse 83 12/21/2023 2:33 PM EDT Temperature 36.9 ??C (98.5 ??F) 12/21/2023 2:33 PM ED T Respiratory Rate 16 12/21/2023 2:33 PM EDT Oxygen Saturation 99% 12/21/2023 2:33 PM EDT Inhaled Oxygen Concentration - - Weight 69.8 kg (153 lb 12.8 oz) 12/21/2023 2:33 PM EDT Height 168.9 cm (5' 6.5 ) 01/07/2023 10 :40 AM EDT Body Mass Index 24.45 01/07/2023 10:40 AM EDT Plan of Treatment Health Maintenance Due Date Last Done Comments Imm-Hepatitis B (2 of 2 - Cp G 2-dose series) 02/04/2023 01/07/2023 Depression Monitoring 04/09/2023 01/07/2023 , 12/23/2020, 05/02/2020 Breast Cancer Screening (Mammogram) 11/11/2023 11/10/2021 [id number] ( season) 2023 01/29/2021, 04/20/2020, 03/30/2020, Additional history exists HPV Screening 12/27/2023 12/26/2018 Annual Preventive Care Visit 01/08/202408/2022, 12/23/2020, 11/01/2018 Relationship Safety Screening/Counseling 01/08/2024 01/07/2023, 12/23/2020 Alcohol and Drug Screen 04/05/2024 01/08/20, 05/02/2020, 11/01/2018, Additional history exists Hypertension Screening (#1) 12/20/2024 Tobacco Screening 12/20/2024 12/21/2023 Pap Smear 07/09/2025 07/09/2022, 09/2022 (Managed by Outside Provider), 12/26/2018 Diabetes Screening 01/07/2026 01/07/2023, 0 12/23/2020, 05/09/2020, Additional history exists Cervical Cancer Screening 07/10/2027 Pap + HPV 07/10/2027 07/09/2022, 12/26/2018 Lipid Screening 01/08/2028 01/07/2023, 05/09/2020 Imm-DTaP/Tdap/Td (2 - Td or Tdap) 12/23/2030 021 HIV Screening Completed 05/09/2020 Hepatitis C Screening Completed 05/09/2020 Imm-Influenza Completed 12/21/2023, 08/2022, 02/01/2022, Additional history exists Cervical Ablation/Cold-Knife Conization Discontinued Cervical Cryotherapy Discontinued Colposcopy Discontinued Endometrial Biopsy Discontinued Excision/Leep Discontinued HPV Genotyping Discontinued Vaginal Pap Discontinued Vulvoscopy Discontinued Procedures Procedure Name Priority Date/Time Associated Diagnosis Comments COMPREHENSIVE METABOLIC PANEL Routine 01/07/2023 11:32 AM EDT Routine general medical examination at a health care facility LIPID PANEL Routine 01/07/2023 11:32 AM EDT Routine general medical examination at a health care facility PAP W/ HPV 07/09/2022 3:00 AM EDT HISTORIC MAMMOGRAM 11/10/2021 3: 00 AM EDT ANTIBODY HIV-1&HIV-2 SINGLE RESULT Routine 05/09/2020 9:17 AM EST Laboratory tests ordered as part of a complete physical exam (CPE) HEPATITIS C ANTIBODY Routine 05/09/2020 9:17 AM EST Laboratory tests ordered as part of a complete physical exam (CPE) PAP SMEAR W/HPV, ABSTRACTED Routine 12/26/2018 9:00 AM EDT from Last 3 Months or Most Recently Relevant to Health Maintenance Results * (ABNORMAL) LIPID PANEL (01/07/2023 11:32 AM EDT) CHOLESTEROL, TOTAL 228(H) <200 mg/dL [facility] HDL CHOLESTEROL 72 > OR = 50 mg/dL [facility] TRIGLYCERIDES 132 <150 mg/dL [facility] LDL-CHOLESTEROL 131(H) 99 mg/dL (calc) [facility] Comment: Reference range: <100 Desirable range <100 mg/dL for primary prevention; ?? <70 mg/dL for patients with CHD or diabetic patients with > or = 2 CHD risk factors. LDL-C is now calculated using the Joel-Jeanine calculation, which is a validated novel method providing better accuracy than the Friedewald equation in the estimation of LDL-C. Joel CHINCHILLA et al. DIMITRY. 2013;310(19): 2529-2303 (http://education.mGaadi/faq/TXU408) CHOL/HDLC RATIO 3.2 <5.0 (calc) [facility] NON-HDL CHOLESTEROL 156(H) <130 mg/dL (calc) [facility] Comment: For patients with diabetes plus 1 major ASCVD risk factor, treating to a non-HDL-C goal of <100 mg/dL (LDL-C of <70 mg/dL) is considered a therapeutic option. Blood Blood / Unknown 01/07/2023 1 1:32 AM EDT 01/07/2023 11:32 [address]T [facility] - BLOOD DRAW Final Re sult [facility] [address] [address], [facility] [address] [place] [address] * (ABNORMAL) COMPREHENSIVE METABOLIC PANEL (01/07/2023 11:32 AM EDT) GLUCOSE 93 65 - 99 mg/dL [facility] Comment: ?Fasting reference interval UREA NITROGEN (BUN) 13 7 - 25 mg/dL [facility] CREATININE (blood) 0.81 0.50 - 0.97 mg/dL [facility] EGFR 95 > OR = 60 mL/min/1. 73m2 [facility] BUN/CREATININE RATIO SEE NOTE: [facility] Comment: ?? Not Reported: BUN and Creatinine are within ?? reference range. ? SODIUM 134(L) 135 - 146 mmol/L [facility] POTASSIUM 4.2 3.5 - 5.3 mmol/L [facility] CHLORIDE 101 98 - 110 mmol/L [facility] CARBON DIOXIDE 25 20 - 32 mmol/L [facility] CALCIUM 9.6 8.6 - 10.2 mg/dL [facility] PROTEIN, TOTAL 7.4 6.1 - 8.1 g/dL [facility] [place] [employer] ALBUMIN 4.3 3.6 - 5.1 g/dL [facility] GLOBULIN 3.1 1.9 - 3.7 g/dL (calc) [facility] ALBUMIN/GLOBULI N RATIO 1.4 1.0 - 2.5 (calc) [facility] BILIRUBIN, TOTAL 0.3 0.2 - 1.2 mg/dL [facility] ALKALINE PHOSPHATASE 43 31 - 125 U/L [facility] AST 10 10 - 30 U/L [facility] ALT 8 6 - 29 U/L [facility] Blood Blood / Unknown 01/07/2023 1 1:32 AM EDT 01/07/2023 11:[address] [facility] - BLOOD DRAW Final Re sult [facility] [address] [address], [facility] [address] [place] [address] * PAP W/ HPV (07/09/2022 3:00 AM EDT) 07/09/2022 3:00 AM EDT [facility] - NO BLOOD DRAW Final Result * HISTORIC MAMMOGRAM (11/10/2021 3:00 AM EDT) 11/10/2021 3:00 AM EDT [facility] IMG MAMMO Final Res ult * HEPATITIS C ANTIBODY (05/09/2020 9:17 AM EST) HEPATITIS C VIRUS SCREEN NEGATIVE NEGATIVE [facility] Blood Blood / Unknown 05/09/2020 9 :17 AM EST 05/09/2020 9:33 AM EST Narrative [facility] - 05/09/2020 2:11 PM EST [facility] [employer], [place] [address] Drum Drier Operator - Marcia Henderson MD PT ID [id number] ORD# [id number] [facility] - BLOOD DRAW Final Re sult Performing Organization Address City/[facility]/ZIP Co de Phone Number [address] [address], * HIV-1 & HIV-2 ANTIBODIES (05/09/2020 9:17 AM EST) HIV 1 AND 2 ANTIBODY SCREEN NEGATIVE NEGATIVE [facility] Comment: This assay is a 4th generation assay allowing for earlier detection of HIV infection by detecting the presence of the HIV-1 p24 antigen as well as the traditional antibodies to HIV type 1 (including group O) and type 2. ??Use of a 4th generation assay is the current CDC recommendation for HIV screening. Blood Blood / Unknown 05/09/2020 9 :17 AM EST 05/09/2020 9:33 AM EST Narrative [facility] - 05/09/2020 2:11 PM EST [employer], [place] [address] Drum Drier Operator - Marcia Henderson MD PT ID [id number] ORD# [id number] [facility] - BLOOD DRAW Final Re sult Performing Organization Address City/[facility] [place] [address], * PAP SMEAR W/HPV (12/26/2018 9:00 AM EDT) PAP SMEAR INTERPRETATION NORMAL NORMAL [facility] HPV (HUMAN PAPILLOMA) NEGATIVE NEGATIVE [facility] HPV TYPE 16 NEGATIVE NEGATIVE [facility] HPV TYPE 18 NEGATIVE NEGATIVE [facility] C[facility] 12/26/2018 9:00 AM EDT Impressions [facility] - 12/26/2018 1:16 PM EDT NEGATIVE for Intraepithelial Lesion or Malignancy. Human Papilloma Virus, High-Risk- NEGATIVE. Adequacy:Satisfactory.Endocervical/transformation zone component present. [facility] LAB - NO BLOOD DRAW Final Result Performing Organization Address City/[facility]/[place] [address], from Last 3 Months or Most Recently Relevant to Health Maintenance Insurance [facility] [employer] Member Subscriber Plan / Payer (Ef fective 2017-Present) Name:Nigel Gibbs Relation to Subscriber:Self Name:Nigel Gibbs Payer ID:[id number] Type:Indemnity Address: [address] [address] [place] [address] Care Teams Cytopathology Technologist Relationship Specialty Start Date End Date Benito Salinas NP [address] [place] [address] PCP - General Family Medicine, BUILDINGS AND GROUNDS DIRECTOR 02/08/24
--- OUTSIDE RECORDS SUMMARY | 2024-05-12 09:02 | XMS_ITS | Continuity of Care Document ---
Author Organization [facility], _[facility] Address [address] [place] [id number] Care Team Providers Care Pulper Operator Name Role Phone RANDY CALLOWAY Primary Care Provider [phone] Assessment No assessment recorded. Plan of Treatment Reminders Order Date Submit Date Provider Last Modified By Organization Details Last Modified Time Details Appointments None recorded. Lab urinalysis , dipstick 2024 025 [email or web address] 20999_[facility], [address] [place] [address], [phone], 5 09:44:15 test, urine 2024 025 [email or web address] 20993[facility], [address] [place] [address], [phone], 5 09:47:30 Referral None recorded. Procedures None recorded. Surgeries None recorded. Imaging None recorded. Medication Orders Macrobid 100 mg capsule 2024 025 [id number], [address] [place], [address], 5 09:44:18 Patient TargetsNo targets recorded. Patient Instructions Encounter Date Encounter Id Patient Instructions Last Modified By Organization Details Last Modified Time 05/05/2024 [id number] Urinary Tract Infection (UTI) in Women: Care Instructions [email or web address] Not available 05/05/2024 09:44:15 Reason for Referral None Reported. Results Created Date Observation Date Name Description Value Unit Range Abnormal Flag Note LastModifiedBy Organization Detail LastModifiedTime 05/05/1905/05/2024 pregn helen test, urine Unknown Analyte negati ve Not Available [address] [place] [address], [phone], 05/05/2024 09:47:19 05/05/1905/05/2024 urina lysis , dipst ick Unknown Analyte Not Available [address] [place] [address], [phone], 05/05/2024 09:30:51 05/05/1905/05/2024 urina lysis , dipst ick Unknown Analyte Not Available [address] [place] [address], [phone], 05/05/2024 09:30:51 05/05/1905/05/2024 urina lysis , dipst ick Unknown Analyte Not Available [address] [place] [address], [phone], 05/05/2024 09:30:51 05/05/1905/05/2024 urina lysis , dipst ick Unknown Analyte Not Available [address] [place] [address], [phone], 05/05/2024 09:30:51 05/05/1905/05/2024 urina lysis , dipst ick Unknown Analyte Not Available [address] [place] [address], [address], 05/05/2024 09:30:51 05/05/1905/05/2024 urina lysis , dipst ick Unknown Analyte Not Available [address] [place] [address], [phone], 05/05/2024 09:30:51 05/05/19 25 05/05/2024 urina lysis , dipst ick Unknown Analyte Not Available [facility] [address] [place] [address], [phone], 05/05/2024 09:30:51 05/05/1905/05/2024 urina lysis , dipst ick Unknown Analyte Not Available _ [facility], [address], 05/05/2024 09:30:51 05/05/1905/05/2024 urina lysis , dipst ick Unknown Analyte Not Available _ [facility], [phone], 05/05/2024 09:30:51 05/05/1905/05/2024 urina lysis , dipst ick Unknown Analyte Not Available _ [address], [address], 05/05/2024 09:30:51 05/05/1905/05/2024 urina lysis , dipst ick Unknown Analyte Not Available _ [address], [address], 05/05/2024 09:30:51 05/05/1905/05/2024 urina lysis , dipst ick Unknown Analyte Not Available [facility], [address], 05/05/2024 09:30:51 05/05/1905/05/2024 urina lysis , dipst ick Unknown Analyte Not Available _ [address], [address], 05/05/2024 09:30:51 05/05/19 25 05/05/2024 urina lysis , dipst ick Unknown Analyte Not Available _ [facility] [address] [place] [address], [phone], 05/05/2024 09:30:51 05/05/1905/05/2024 urina lysis , dipst ick Unknown Analyte Not Available [facility], [address], 05/05/2024 09:30:51 05/05/1905/05/2024 urina lysis , dipst ick Unknown Analyte Not Available _ [facility] [address] [place] [address], [phone], 05/05/2024 09:30:51 05/05/1905/05/2024 urina lysis , dipst ick Unknown Analyte Not Available _ [address], [address], 05/05/2024 09:30:51 05/05/1905/05/2024 urina lysis , dipst ick Unknown Analyte Not Available _ [address], [address], 05/05/2024 09:30:51 05/05/1905/05/2024 urina lysis , dipst ick Unknown Analyte Not Available _ [facility], [address], 05/05/2024 09:30:51 05/05/1905/05/2024 urina lysis , dipst ick Unknown Analyte Not Available [address]_ [address], [address], 05/05/2024 09:30:51 05/05/1905/05/2024 urina lysis , dipst ick Unknown Analyte Not Available _ [facility], [address], 05/05/2024 09:30:51 05/05/1905/05/2024 urina lysis , dipst ick Unknown Analyte Not Available [address] [place], [place] [address] [address] [place], [address], 05/05/2024 09:30:51 05/05/1905/05/2024 urina lysis , dipst ick Unknown Analyte Not Available [address] [place] [address] [address] [place], [address], 05/05/2024 09:30:51 Result Notes None recorded. Problems Name Problem SNOMED Code Status Onset Date Resolution Date Notes Provider Name and Address Organization Details Recorded Time Attention deficit hyperactivity disorder 511070074 Active Natasha kimble, [place] - [facility] 4 15:03:09 Depressive disorder 03643826 Active Natasha kimble, PA - [facility] 4 15:03:15 Insomnia 627120657 Active Natasha kimble, [place] - [facility] 4 15:03:24 Problem Notes None recorded. Procedures Surgical History Date Name Laterality Status Provider Name and Address Organization Details Recorded Time Suture/Staple Removal Providers completed JARETT Magaña [address] [place] [address], [phone], [place] - [facility] 11/27/2023 15:09:54 Imaging [...] Updated DateTime 5 170.18 cm 25.1 kg/m2 80945.7 8 g 100 % 100 % 7 83 /min 20 /min 98 [degF] 115 mm[Hg] 77 mm[Hg] Gage Rosen [facility] 09:28:27 Social History Question Answer Notes LastModified by Organizat ion Details LastModified Time Tobacco Smoking Status Never Smoker JARETT Sadlre [facility] 11/27/2023 15:03:41 What Is Your Level Of Alcohol Consumption? Occasional [email or web address] Information not available 11/27/2023 Are You Currently Employed? Yes [email or web address] Information not available 11/27/2023 Have You Had A Flu Shot This Season? Yes [email or web address] Information not available 11/27/2023 What Is Your Relationship Status? Single [email or web address] Information not available 11/27/2023 Are You Passively Exposed To Smoke? No [email or web address] Information no t available 11/27/2023 Do You Use Any Illicit Or Recreational Drugs? No [email or web address] Information not available 11/27/2023 Have You Recently Traveled Abroad? Yes [place] [email or web address] Information not available 11/27/2023 Do You Or Have You Ever Used Any Other Forms Of Tobacco Or Nicotine? No [email or web address] Information not available 11/27/2023 Sex: Unknown Functional [...] Influenza, MDCK, quadrivalent, PF 2 completed Gage Fontenotkira Perez null, [place] - [facility] 05/05/2024 09:29:15 Influenza, MDCK, quadrivalent, PF 9 completed Gagejosue Perez null, PA - [facility] 05/05/2024 09:29:15 Influenza, MDCK, quadrivalent, PF 1 completed Gagejosue Perez null, PA - [facility] 05/05/2024 09:29:15 HepB-CpG 3 completed Gage Perez null, [facility] - [facility] [...] SNOMED-CT Code Diagnosis ICD10 Code Diagnosis Note [id number] JARETT GARCIA [address] [phone] 05/05/2024 09:17:19 05/05/2024 09:55:00 Acute urinary tract infection [id number] N39.0 Signs and Symptoms c/w UTIUA c/w [...] by Organization Details LastModified Time None Recorded Payers Encounter Date Sequence Insurance Name Policy Number Policy Ferrer Covered Member ID Ferrer Member ID Guarantor Name 05/05/2024 1 [facility] (O) [id number] Nigel Dallas Bernie [id number] Nigelchamp Gibbs Notes Date Note Type Note Provider Name and Address Organization Details Recorded Time 05/05/2024 text/html DysuriaReported bypatient.Notes:38 yo female c/o c/o dysuria x 4 d+ increased frequency+ increased urgencyno incontinence+ pressureno malodorno blood in her urineno vaginal bleedingno vaginal dischargeno back painno rashno feverno nausea or vomitingno MS change JARETT GARCIA [address] [place], [address], [place] - [facility] 05/08/2024 10:11:58 OBGyn Episode No OBEpisode recorded.
--- NOTE | 2024-05-12 09:04 | A.OFFPC_ITS ---
Vital Signs 05/12/24 09:08 Height 5 ft 6 in Weight 159 lb 2 oz BMI 25.7 BP 110/70 Blood Pressure Location Rt brachial Position Sitting Respiration 12 Pulse 76 Pulse Source Pulse Oximeter Temp 97.8 F Temp Source Oral Pulse Oximetry (%) 98 Oxygen Delivery Method Room Air Intake Visit Reasons: f/u labs, headaches, pre-diabetes Intake Note: lab review medication refill Allergies bee pollen [bee stings] Allergy (Severe, Verified 05/12/24 09:06) Anaphylaxis Medication List - Last Reconciled 05/12/24 by Eben Negrete MD dextroamphetamine-amphetamine 10 mg 1 tab PO BID epinephrine (EpiPen) 0.3 mg IM Q4H PRN fluoxetine 20 mg PO DAILY lorazepam 0.5 - 1 mg PO DAILY PRN norelgestromin-ethin.estradiol 150-35 mcg/24 hr (Xulane) 1 patch transdermal QWEEK 28 days ondansetron 4 mg PO Q8H PRN 30 days pantoprazole 40 mg PO DAILY 30 days semaglutide 0.5 mg (0.736 mL) subcut QWEEK 28 days sumatriptan succinate 50 mg PO DAILY PRN Tobacco use date assessed: 01/29/22 HPI f/u labs, headaches, pre-diabetes HPI Details 38 y/o female presents today to f/u labs , headaches, pre-diabetes. Last A1c 03/23/24 5.4%. Notes she had an A1c of 6.5% before. She notes headaches have improved with exercises. [facility] Medical History (Updated 05/12/24 @ 09:31 by Bryan Ang) Irritable bowel syndrome Anemia Migraine Anxiety and depression ADHD Hyperlipidemia Endometriosis Surgical History History of tonsillectomy History of appendectomy History of removal of ovarian cyst Hx of esophagogastroduodenoscopy Hx of colonoscopy Family History Maternal Aunt Breast CA Maternal Grandfather Lung cancer Social History Household Members: Family Housing: House Are you a primary personal carer to a significant other at home: No Do you presently have visiting nurse or other home services: No Patient Tobacco Use Status: Never used Tobacco e-Cigarette/Vaping Use: Never Used Second Hand Smoke Exposure: No service: No Current occupational status: employed Current occupational exposures/hazards: No Cognitive needs: No Hearing needs: No Vision needs: No Questionnaire PHQ-9 Over the last 2 weeks, how often have you been bothered by any of the following problems? 1. Little interest or pleasure in doing things: not at all 2. Feeling down, depressed, or hopeless: not at all 3. Trouble falling or staying asleep, or sleeping too much: several days 4. Feeling tired or having little energy: several days 5. Poor appetite or overeating: not at all 6. Feeling bad about yourself - or that you are a failure or have let yourself or your family down: not at all 7. Trouble concentrating on things, such as reading the newspaper or watching television: not at all 8. Moving or speaking so slowly that other people could have noticed. Or the opposite - being so fidgety or restless that you have been moving around a lot more than usual: not at all 9. Thoughts that you would be better off or of hurting yourself in some way: not at all Total score: 2 Source: Developed by Drs. Shay Sy, Tatyana Guzmán, Nilson Tabor and colleagues, with an educational kaia from [employer]. Thrive Questionnaire Date Thrive assessed: 03/20/24 I am a: Patient What is your living situation today?: I have a steady place to live Within the past 12 months, did the food you bought not last and you didn't have the money to get more?: Never true Within the past 12 months, did you worry whether your food would run out before you got money to buy more?: Never true Do you have trouble paying for medicines?: I choose not to answer this question Do you have trouble getting transportation to medical appointments?: No Do you have trouble paying your heating and electricity bill?: No Do you have trouble taking care of your child, family member or friend?: No Do you have trouble with day-to-day activities such as bathing, preparing meals, shopping, managing finances, etc.?: No Are you currently unemployed and looking for a job?: No Are you interested in more education?: No Please select the resources that you would like help with: None Currently or been in a relationship where the following occur: No concerns reported THRIVE Score: 0 AUDIT C Alcohol Use Questionnaire (AUDIT-C) 1. How often do you have a drink containing alcohol?: 2-3 times a week 2. How many drinks containing alcohol do you have on a typical day when you are drinking?: 1 or 2 3. How often do you have six or more drinks on one occasion?: Never Total Score: 3 TORRI-7 AMB Questionnaire TORRI-7 Date TORRI - 7 assessed: 01/29/22 Feeling nervous, anxious, or on edge: 1 = Several days Not being able to stop or control worryin = Several days Worrying too much about different things: 1 = Several days Trouble relaxin = Several days Being so restless that it is hard to sit still: 1 = Several days Becoming easily annoyed or irritable: 1 = Several days Feeling afraid as if something awful might happen: 1 = Several days Total TORRI-7 score (0-4 normal; 5-9 mild; 10-14 moderate; 15-21 severe): 7 Source: Developed by Drs. Shay Sy, Tatyana Guzmán, Nilson Tabor and colleagues, with an educational kaia from [employer]. Review of Systems Const Denies chills, Denies fatigue, Denies fever(s), Denies headache(s) and Denies weakness ENT Denies dizziness and Denies headache(s) Card Denies chest pain, Denies lightheadedness, Denies dyspnea and Denies other (Palpitations) Resp Denies cough, Denies dyspnea, Denies wheezing and Denies other ( shortness of breath) Musc Denies numbness and Denies tingling Neuro Denies dizziness, Denies headache(s), Denies numbness, Denies tingling, Denies paresthesias and Denies weakness Psych Denies anxiety and Denies depression Endo Denies fatigue Aller/Immun Denies wheezing Physical exam (Primary Care) Vital Signs: Last Vital Signs Temp 97.8 F 05/12/24 09:08 Pulse 76 05/12/24 09:08 Resp 12 05/12/24 09:08 BP 110/70 05/12/24 09:08 Pulse Ox 98 05/12/24 09:08 Oxygen Delivery Method Room Air 02/07/25 09:08 BMI result Body Mass Index 25.7 Tobacco/Smoking Status: Tobacco use Status Tobacco use date assessed 01/29/22 05/12/24 09:05 Patient Tobacco Use Status Never used Tobacco 05/12/24 09:05 e-Cigarette/Vaping Use Never Used 05/12/24 09:05 PHQ-9: PHQ-9 Score PHQ-9: Total score 2 05/12/24 09:30 Thrive Assessment: Date of Thrive Assessment Date Thrive assessed 03/20/24 05/12/24 09:05 Currently or been in a relationship where the following occur: No concerns reported Const General: no acute distress and well developed Nutritional Appearance: well nourished Orientation/consciousness: patient oriented x3 HENMT Head: Yes normocephalic and Yes atraumatic Eyes General: appearance normal, both eyes and all related structures Pupils: Equal, round and reactive pupils present EOM: EOMs intact bilaterally Resp Effort & Inspection: normal respiratory effort Auscultation: clear to auscultation bilaterally Cardio Rate: regular rate Rhythm: regular rhythm Heart sounds: S1 normal heart sound present, S2 normal heart sound present, no gallops, no murmurs and no rubs Neuro General: patient oriented x3 and gait normal Cranial nerves: Yes Equal, round and reactive pupils present Psych Affect: normal affect Coding Level of Care Code Est Pt Level 3 (87992) Diagnoses Diabetes E11.9 Headache R51.9 Assessment & Plan Assessment & Plan (1) Diabetes: Code(s): E11.9 - Type 2 diabetes mellitus without complications Category: Medical Plan: A1c?has?previously?been?higher?than?6.5%?on?review?of?outside?lab?work. Diabetes. More?recently?A1c?has?been?controlled?as?she?has?been?on?semaglutide. Will?continue?semaglutide?and?increase?dose?from?0.25?mg?weekly?to?0.5?mg?weekly Will?follow-up?again?in?3?months. (2) Headache: Code(s): R51.9 - Headache, unspecified Category: Medical Plan: Headaches?have?improved?with?exercises?demonstrated?at?last?visit. Continue?exercises Medications: Changed From semaglutide for 4 weeks 0.25 mg (0.368 mL) subcut QWEEK 28 days 1.472 mL 3RF E11.9 - Type 2 diabetes mellitus without complications, E66.3 - Overweight To semaglutide for 4 weeks 0.5 mg (0.736 mL) subcut QWEEK 2.944 mL 3RF 28 days E11.9 - Type 2 diabetes mellitus without complications, E66.3 - Overweight From norelgestromin-ethin.estradiol 150-35 mcg/24 hr (Xulane) 1 patch transdermal QWEEK To norelgestromin-ethin.estradiol 150-35 mcg/24 hr (Xulane) 1 patch transdermal QWEEK 3 ea 3RF 28 days Refilled pantoprazole 40 mg PO DAILY 30 tabs 3RF 30 days
== END | disposition home or self-care (01) ==
PROVIDERS: PCP Family Medicine; Visit Provider Family Medicine

== ENCOUNTER 2024-05-12 09:51 | Outpatient (REF) | payer OTHER, SELFPAY ==
--- OUTSIDE RECORDS SUMMARY | 2024-05-12 10:37 | XMS_ITS | Clinical Summary ---
Author Organization [facility] Address [address] [place] [address] Care Team Providers Care Boat Outfitter Name Role Phone Benito Salinas REAL ESTATE ANALYST Primary Care Provider [phone] Source Comments PLEASE NOTE, if this patient [...] 05/14/2020 Overview (01/07/2023): Pap smear 12/21/18 at [facility] NILM, neg HPV Pap smear 07/09/22 NILM, neg HPV Polyp of colon 05/03/2020 Lump of right wrist 05/03/2020 Hemorrhoids 05/03/2020 Left ankle sprain 11/06/2019 Overview (11/06/2019): [facility] ED 10/09/19 for L ankle sprain. Advised to f/u with ortho in 1 week for repeat x-rays. 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 06/18/15 Pelvic U/S at [facility] shows interval enlargement of R ovarian [...] (04/17/2015): Per pt report. Seen at at [facility]. [phone]. Previously on Adderall 20mg. Anxiety 04/17/2015 Overview (04/17/2015): Per pt report. Seen at at [facility]. [phone]. Previously managed with Ativan 1mg. Depression 04/17/2015 Overview (04/17/2015): Per pt report. Seen at at [facility]. [phone] Immunizations Name Administration Dates Next Due Flu, Cell Culture based, Pre servative Free, 6m+, Flucelvax 02/27/2019 Flu, Preservative Free 01/07/2023,01/28/2020 Hep B,adult,adjuvanted (HEPLISAV) 01/07/2023 INFLUENZA, SEASONAL, INJECTABLE 01/28/2020 Influenza (FLUBLOK),recombinant,injectable,preservative Free 12/21/2023 Wiki-PR COVID VACCINE, PURPLE CAP, 12+ 03/30/2020 TDAP [...] 05/02/2020 Breast Cancer Screening (Mammogram) 11/11/2023 11/10/2021 [id number] ( season) 2023 01/29/2021, 04/20/2020, 03/30/2020, Additional [...] AM EDT) CHOLESTEROL, TOTAL 228(H) <200 mg/dL [facility] HDL CHOLESTEROL 72 > OR = 50 mg/dL [facility] TRIGLYCERIDES 132 <150 mg/dL [facility] LDL-CHOLESTEROL 131(H) 99 mg/dL (calc) [facility] Comment: Reference range: <100 Desirable range <100 mg/dL for primary prevention; ?? <70 mg/dL for patients with CHD or diabetic patients with > or = 2 CHD risk factors. LDL-C is now calculated using the Joel-Jeanine calculation, which is a validated novel method providing better accuracy than the Friedewald equation in the estimation of LDL-C. Joel CHINCHILLA et al. DIMITRY. 2013;310(19): 5154-0737 (http://education.Time Solutions/faq/ICH018) CHOL/HDLC RATIO 3.2 <5.0 (calc) [facility] NON-HDL CHOLESTEROL 156(H) <130 mg/dL (calc) [facility] Comment: For patients with diabetes plus 1 major ASCVD risk factor, treating to a non-HDL-C goal of <100 mg/dL (LDL-C of <70 mg/dL) is considered a therapeutic option. Blood Blood / Unknown 01/07/2023 1 1:32 AM EDT 01/07/2023 11:32 AM EDT [facility] - BLOOD DRAW Final Re sult [facility] [address] [address], [facility] [address] [place] [address] * (ABNORMAL) COMPREHENSIVE METABOLIC PANEL (01/07/2023 11:32 AM EDT) GLUCOSE 93 65 - 99 mg/dL [facility] Comment: ?Fasting reference interval UREA NITROGEN (BUN) 13 7 - 25 mg/dL [facility] CREATININE (blood) 0.81 0.50 - 0.97 mg/dL [facility] EGFR 95 > OR = 60 mL/min/1. 73m2 [facility] BUN/CREATININE RATIO SEE NOTE: [facility] Comment: ?? Not Reported: BUN and Creatinine are within ?? reference range. ? SODIUM 134(L) 135 - 146 mmol/L [facility] POTASSIUM 4.2 3.5 - 5.3 mmol/L [facility] CHLORIDE 101 98 - 110 mmol/L [facility] CARBON DIOXIDE 25 20 - 32 mmol/L [facility] CALCIUM 9.6 8.6 - 10.2 mg/dL [facility] PROTEIN, TOTAL 7.4 6.1 - 8.1 g/dL [facility] [place] [facility] ALBUMIN 4.3 3.6 - 5.1 g/dL [facility] GLOBULIN 3.1 1.9 - 3.7 g/dL (calc) [facility] ALBUMIN/GLOBULI N RATIO 1.4 1.0 - 2.5 (calc) [facility] BILIRUBIN, TOTAL 0.3 0.2 - 1.2 mg/dL [facility] ALKALINE PHOSPHATASE 43 31 - 125 U/L [facility] AST 10 10 - 30 U/L [facility] ALT 8 6 - 29 U/L [facility] Blood Blood / Unknown 01/07/2023 1 1:32 AM EDT 01/07/2023 11:32 AM EDT [facility] - BLOOD DRAW Final Re sult [facility] [address] [address], [facility] [address] [place] [address] * PAP W/ HPV (07/09/2022 3:00 AM EDT) 07/09/2022 3:00 AM EDT [facility] - NO BLOOD DRAW Final Result * HISTORIC MAMMOGRAM (11/10/2021 3:00 AM EDT) 11/10/2021 3:00 AM EDT [facility] IMG MAMMO Final Res ult * HEPATITIS C ANTIBODY (05/09/2020 9:17 AM EST) HEPATITIS C VIRUS SCREEN NEGATIVE NEGATIVE [facility] Blood Blood / Unknown 05/09/2020 9 :17 AM EST 05/09/2020 9:33 AM EST Narrative [facility] - 05/09/2020 2:11 PM EST [facility] [employer], [place] [address] Sand [employer]ger - Marcia Henderson MD PT ID [id number] ORD# [id number] [facility] - BLOOD DRAW Final Re sult Performing Organization Address City/[facility]/ZIP Co de Phone Number [address] [address], * HIV-1 & HIV-2 ANTIBODIES (05/09/2020 9:17 AM EST) HIV 1 AND 2 ANTIBODY SCREEN NEGATIVE NEGATIVE [facility] Comment: This assay is a [...] AM EST 05/09/2020 9:33 AM EST Narrative [facility] - 05/09/2020 2:11 PM EST [employer], [place] [address] [employer] - Marcia Henderson MD [place] ID [id number] ORD# [id number] [facility] - BLOOD DRAW Final Re sult Performing Organization Address City/[facility] [place] [address], * PAP SMEAR W/HPV (12/26/2018 9:00 AM EDT) PAP SMEAR INTERPRETATION NORMAL NORMAL [facility] HPV (HUMAN PAPILLOMA) NEGATIVE NEGATIVE [facility] HPV TYPE 16 NEGATIVE NEGATIVE [facility] HPV TYPE 18 NEGATIVE NEGATIVE [facility] Cervix 12/26/2018 9:00 AM EDT [facility] - 12/26/2018 1:16 PM EDT NEGATIVE for Intraepithelial Lesion or Malignancy. Human Papilloma Virus, High-Risk- NEGATIVE. Adequacy:Satisfactory.Endocervical/transformation zone component present. [facility] LAB - NO BLOOD DRAW Final Result Performing Organization Address City/[facility]/[place] [address], from Last 3 Months or Most Recently Relevant to Health Maintenance Insurance [facility] Remote Assistant Member Subscriber Plan / Payer (Ef fective 2017-Present) Name:Nigel Gibbs Relation to Subscriber:Self Name:Nigel Gibbs Payer ID:[id number] Type:Indemnity Address: [address] [address] [place] [address] Care Teams Boat Outfitter Relationship Specialty Start Date End Date Benito Salinas NP [address] [place] [address] PCP - General Family Medicine, REAL ESTATE ANALYST 02/08/24
[2024-05-12 11:42] LABS: MANUAL DIFF FLAG NO
[2024-05-12 12:02] LABS: Appearance Urine Clear; Color Urine Yellow; Glucose Urine UA Negative (Negative); Leukocyte Esterase Urine Negative (Negative); Nitrite Urine Negative (Negative); Specific Gravity - Urine >= 1.030 (1.005-1.025); Urine Blood Negative (Negative); Urine Ketones Negative (Negative); Urine Protein Negative (Neg-Trace)
[2024-05-12 12:02] LABS: Basophils Absolute Auto 0.1 X10*3/uL (0.0-0.2); Eosinophils Absolute Auto 0.3 X10*3/uL (0.0-0.4); Eosinophils Percent Auto 3.6 % (0-4); Hematocrit 35.2 % (37.0-47.0); Hemoglobin 11.7 g/dl (12.0-16.0); Imm Gran Abs Auto 0.02 X10*3/uL (0.00-0.03); Imm Gran Pct Auto 0.2 % (0.0-0.4); Lymphocytes Absolute Auto 2.5 X10*3/uL (1.2-4.9); Lymphocytes Percent Auto 29.9 % (20-40); Mean Corpuscular HGB Conc 33.2 g/dl (31.0-35.0); Mean Corpuscular Hemoglobin 30.3 pg (27.0-33.0); Mean Corpuscular Volume 91.2 fL (80.0-98.0); Mean Platelet Volume 9.8 fL (9.4-12.3); Monocytes Absolute Auto 0.8 X10*3/uL (0.1-1.2); Neutrophils Absolute Auto 4.6 x10*3/uL (2.0-8.3); Neutrophils Percent Auto 55.3 % (45-73); Platelet Count 415 X10*3/uL (160-400); Red Blood Count 3.86 X10*6/uL (4.20-5.50); Red Cell Distribution Width 12.9 % (11.0-16.0); White Blood Count 8.4 X10*3/uL (4.8-10.8)
[2024-05-12 12:32] LABS: Creatinine Urine 171.98 mg/dL; Microalbum/Creatinine Ratio Ur 5.2 ug/mg cr (<30)
[2024-05-12 12:37] LABS: Alanine Aminotransferase 16 U/L (0-31); Albumin Level 3.8 g/dL (3.5-5.0); Alkaline Phosphatase 50 U/L (39-117); Anion Gap 9 (12-20); Aspartate Amino Transferase 16 U/L (5-31); Bilirubin Total 0.2 mg/dL (0.0-1.0); Blood Urea Nitrogen 17 mg/dL (9-16); Calcium 8.6 mg/dL (8.4-10.2); Carbon Dioxide 25 mmol/L (22-29); Chloride 105 mmol/L (96-108); Cholesterol 189 mg/dL (<200); Estimated Glomerular Filt Rate > 60; Glucose Fasting 89 mg/dL (60-99); HDL Cholesterol 59 mg/dL (>40); LDL Cholesterol Calculated 113 mg/dL (<100); Sodium 135 mmol/L (135-145); Total Protein 7.2 g/dL (6.5-8.0); Triglycerides 87 mg/dL (<150)
== END 2024-05-12 09:52 | disposition home or self-care (01) ==
LOC: HO.WFDLDS 09:51
PROVIDERS: Visit Provider Family Medicine
DX: Z00.00 Encounter for general adult medical examination without abnormal findings (principal); I10 Essential (primary) hypertension
CPT/HCPCS: 36415; 80053; 80061; 81003; 82043; 82570; 84443; 85025

== ENCOUNTER 2024-09-13 13:04 | Outpatient (REF) | payer OTHER, SELFPAY ==
[2024-09-13 18:33] LABS: Creatinine Urine 31.91 mg/dL; Microalbumin Urine < 5.0 mg/L
== END 2024-09-13 13:05 | disposition home or self-care (01) ==
LOC: HO.LAB 13:04
PROVIDERS: PCP Family Medicine; Visit Provider Nurse Practitioner Family
DX: E11.9 Type 2 diabetes mellitus without complications (principal)
CPT/HCPCS: 82570; 83036; 99212

== ENCOUNTER 2024-09-13 13:04 | Outpatient (AMB) | payer OTHER, SELFPAY ==
--- NOTE | 2024-09-13 13:13 | A.OFFPC_ITS ---
Vital Signs 09/13/24 13:16 Height 5 ft 6 in Weight 158 lb BMI 25.5 BP 124/72 Blood Pressure Location Lt brachial Position Sitting Respiration 12 Pulse 78 Pulse Source Pulse Oximeter Temp 97.5 F Temp Source Oral Pulse Oximetry (%) 100 Oxygen Delivery Method Room Air Intake Visit Reasons: f/u diabetes, labs / Dr. Amador Pt. Intake Note: Follow up diabetes and review labs Integration Software Developer Required: No Allergies bee pollen [bee stings] Allergy (Severe, Verified 09/13/24 13:28) Anaphylaxis Medication List - Last Reconciled 09/13/24 by Merry Malhotra, ORIENTAL RUG STRETCHER-BC dextroamphetamine-amphetamine 10 mg 1 tab PO BID epinephrine (EpiPen) 0.3 mg IM Q4H PRN fluoxetine 20 mg PO DAILY lorazepam 0.5 - 1 mg PO DAILY PRN norelgestromin-ethin.estradiol 150-35 mcg/24 hr (Xulane) 1 patch transdermal QWEEK 28 days ondansetron 4 mg PO Q8H PRN 30 days pantoprazole 40 mg PO DAILY 30 days semaglutide 0.5 mg (0.736 mL) subcut QWEEK 28 days sumatriptan succinate 50 mg PO DAILY PRN Tobacco use date assessed: 09/13/24 Dental Screening Dental Screen Date: 09/13/24 Did you have a dental visit in the last 12 months?: Yes Did you have a dental problem in the last 6 months where you did not have access to dental care?: No Was dental information given to patient?: Patient has dentist HPI HPI Comments History of Present Illness Details Patient of Dr Negrete Here today to fu on DM A1c today 5.3% Reports her GLP 1 is not being covered by her insurance so she is buying OTC Started to have blurry vision w/ this She cont to take it OTC She has never been on any oral medications DME: reports this was done at [facility] - i will request this report Urine micro: obtained today. Exam Awake alert NAD RRR LS CTAB PP intact, skin intact bilat feet, normal DM foot exam Plan: Discussed Metformin instead of GLP1. She wishes to stay on GLP 1 and be referred to Endo for further mgmt DM Eye Exam requested Urine Micro obtained RTO about 4 months for CPE with Dr Fisher, sooner PRN Total time spent caring for the patient today was 30 minutes. This includes time spent before the visit reviewing the chart, time spent during the visit, and time spent after the visit on documentation, reviewing laboratory results, diagnostic imaging, medications, performing a medically necessary evaluation, counseling on diagnoses, care coordination, ordering appropriate tests, ordering appropriate medications, review of tests performed by other providers, reporting test results with the patient, communication with other healthcare providers. [facility] Medical History (Updated 09/13/24 @ 13:31 by Merry Malhotra [facility]) ADHD Anemia Anxiety and depression Endometriosis Hyperlipidemia Irritable bowel syndrome Migraine Surgical History History of appendectomy History of removal of ovarian cyst History of tonsillectomy Hx of colonoscopy Hx of esophagogastroduodenoscopy Family History Maternal Aunt Breast CA Maternal Grandfather Lung cancer Social History Household Members: Family Housing: House Are you a primary reproductive healthcare assistant to a significant other at home: No Do you presently have visiting nurse or other home services: No Patient Tobacco Use Status: Never used Tobacco e-Cigarette/Vaping Use: Never Used Second Hand Smoke Exposure: No service: No Current occupational status: employed Current occupational exposures/hazards: No Cognitive needs: No Hearing needs: No Vision needs: No Questionnaire Thrive Questionnaire Date Thrive assessed: 05/12/24 I am a: Patient What is your living situation today?: I have a steady place to live Within the past 12 months, did the food you bought not last and you didn't have the money to get more?: Never true Within the past 12 months, did you worry whether your food would run out before you got money to buy more?: Never true Do you have trouble paying for medicines?: I choose not to answer this question Do you have trouble getting transportation to medical appointments?: No Do you have trouble paying your heating and electricity bill?: No Do you have trouble taking care of your child, family member or friend?: No Do you have trouble with day-to-day activities such as bathing, preparing meals, shopping, managing finances, etc.?: No Are you currently unemployed and looking for a job?: No Are you interested in more education?: No Please select the resources that you would like help with: None Currently or been in a relationship where the following occur: No concerns reported THRIVE Score: 0 TORRI-7 AMB Questionnaire TORRI-7 Date TORRI - 7 assessed: 01/29/22 Source: Developed by Drs. Shay Sy, Tatyana Guzmán, Nilson Tabor and colleagues, with an educational kaia from [employer]. Physical exam (Primary Care) Vital Signs: Last Vital Signs Temp 97.5 F 09/13/24 13:16 Pulse 78 09/13/24 13:16 Resp 12 09/13/24 13:16 BP 124/72 09/13/24 13:16 Pulse Ox 100 09/13/24 13:16 Oxygen Delivery Method Room Air 09/13/24 13:16 BMI result Body Mass Index 25.5 Tobacco/Smoking Status: Tobacco use Status Tobacco use date assessed 09/13/24 09/13/24 13:19 Patient Tobacco Use Status Never used Tobacco 09/13/24 13:19 e-Cigarette/Vaping Use Never Used 09/13/24 13:19 Thrive Assessment: Date of Thrive Assessment Date Thrive assessed 05/12/24 09/13/24 13:19 Currently or been in a relationship where the following occur: No concerns reported Office Procedures Diabetic Foot Exam Details: NORMAL MONOFILAMENT AND VIBRATORY SENSATION BILAT G9226 - Diabetic Foot Exam Results AMB Hemoglobin A1c AMB Hemoglobin A1c 5.3 % Last Edit by Nnamdi Hendrickson MA on 09/13/24 13:27 Coding Level of Care Code Est Pt Level 4 (73339) Complex EM visit Add On G2211 Diagnoses Type 2 diabetes mellitus without complication, without long-term current use of insulin E11.9 Diabetes mellitus type: type 2 Diabetes mellitus group home insulin use: without superintendent container terminal use Diabetes mellitus complication status: without complication CPT Codes Diabetic Foot Exam - CPT: G9226 - Diabetic Foot Exam ([id number]) Assessment & Plan Assessment & Plan (1) Diabetes: Code(s): E11.9 - Type 2 diabetes mellitus without complications Category: Medical Qualifiers: Diabetes mellitus type: type 2 Diabetes mellitus group home insulin use: without superintendent container terminal use Diabetes mellitus complication status: without complication Qualified Code(s): E11.9 - Type 2 diabetes mellitus without complications Plan . Orders: Orders Microalbumin, Random (w Creat) Today E11.9 - Type 2 diabetes mellitus without c omplications AMB Hemoglobin A1c Today E11.9 - Type 2 diabetes mellitus without complications, Z13.9 - Encounter for screening, unspecified Referrals Endocrinology Referral E11.9 - Type 2 diabetes mellitus without complications
[2024-09-13 13:16] VITALS: BP 124/72; PULSE 78; RESP 12; TEMP 36.4; O2SAT 100; BMI 25.5
--- OUTSIDE RECORDS SUMMARY | 2024-09-13 14:40 | XMS_ITS | Data Portability ---
Author Organization JARETT Vivas s, [address] Address [address] [place] [address] Care Team Providers Care Director Of Cloud Services Name Role Phone RANDY CALLOWAY Primary Care Provider Assessment No assessment recorded. Plan of Treatment Reminders Order Date Submit Date Provider Last Modified By Organization Details Last Modified Time Details Appointments None recorded. Lab urinalysis , dipstick 2024 025 [email or web address] _[facility], [address] [place] [address], [phone], 5 09:44:15 test, urine 2024 025 [email or web address] _[facility], [address] [place] [address], [phone], 5 09:47:30 Referral None recorded. Procedures None recorded. Surgeries None recorded. Imaging None recorded. Medication Orders Macrobid 100 mg capsule 2024 025 [id number], [address] [place], [address], 5 09:44:18 Patient TargetsNo targets recorded. Patient Instructions Encounter Date Encounter Id Patient Instructions Last Modified By Organization Details Last Modified Time 05/05/2024 [id number] Urinary Tract Infection (UTI) in Women: Care Instructions [email or web address] Not available 05/05/2024 09:44:15 Reason for Referral None Reported. Results Created Date Observation Date Name Description Value Unit Range Abnormal Flag Note LastModifiedBy Organization Detail LastModifiedTime 05/05/1905/05/2024 pregn helen test, urine Unknown Analyte negati ve Not Available [address] [place] [address], [phone], 05/05/2024 09:47:19 05/05/1905/05/2024 urina lysis , dipst ick Unknown Analyte Not Available [address] [place] [address], [phone], 05/05/2024 09:30:51 05/05/1905/05/2024 urina lysis , dipst ick Unknown Analyte Not Available [address] [place] [address], [phone], 05/05/2024 09:30:51 05/05/1905/05/2024 urina lysis , dipst ick Unknown Analyte Not Available [address] [place] [address], [phone], 05/05/2024 09:30:51 05/05/1905/05/2024 urina lysis , dipst ick Unknown Analyte Not Available [address] [place] [address], [phone], 05/05/2024 09:30:51 05/05/1905/05/2024 urina lysis , dipst ick Unknown Analyte Not Available [address] [place] [address], [phone], 05/05/2024 09:30:51 05/05/1905/05/2024 urina lysis , dipst ick Unknown Analyte Not Available [address] [place] [address], [phone], 05/05/2024 09:30:51 05/05/19 25 05/05/2024 urina lysis , dipst ick Unknown Analyte Not Available [facility] [address] [place] [address], [phone], 05/05/2024 09:30:51 05/05/19 25 05/05/2024 urina lysis , dipst ick Unknown Analyte Not Available [facility], [address], 05/05/2024 09:30:51 05/05/19 25 05/05/2024 urina lysis , dipst ick Unknown Analyte Not Available [facility], [address], 05/05/2024 09:30:51 05/05/19 25 05/05/2024 urina lysis , dipst ick Unknown Analyte Not Available _ [address], [address], 05/05/2024 09:30:51 05/05/19 25 05/05/2024 urina lysis , dipst ick Unknown Analyte Not Available [address], [address], 05/05/2024 09:30:51 05/05/19 25 05/05/2024 urina lysis , dipst ick Unknown Analyte Not Available _ [address], [address], 05/05/2024 09:30:51 05/05/1905/05/2024 urina lysis , dipst ick Unknown Analyte Not Available [address], [address], 05/05/2024 09:30:51 05/05/19 25 05/05/2024 urina lysis , dipst ick Unknown Analyte Not Available _ [facility] [address] [place], [address], 05/05/2024 09:30:51 05/05/1905/05/2024 urina lysis , dipst ick Unknown Analyte Not Available [facility], [address], 05/05/2024 09:30:51 05/05/1905/05/2024 urina lysis , dipst ick Unknown Analyte Not Available _ [facility] [address] [place] [address], [address], 05/05/2024 09:30:51 05/05/1905/05/2024 urina lysis , dipst ick Unknown Analyte Not Available _ [facility], [address], 05/05/2024 09:30:51 05/05/1905/05/2024 urina lysis , dipst ick Unknown Analyte Not Available _ [facility], [address], 05/05/2024 09:30:51 05/05/1905/05/2024 urina lysis , dipst ick Unknown Analyte Not Available [facility], [address], 05/05/2024 09:30:51 05/05/1905/05/2024 urina lysis , dipst ick Unknown Analyte Not Available [facility], [address], 05/05/2024 09:30:51 05/05/1905/05/2024 urina lysis , dipst ick Unknown Analyte Not Available [address], [address], 05/05/2024 09:30:51 05/05/1905/05/2024 urina lysis , dipst ick Unknown Analyte Not Available [address] [place], [place] [address] [address] [place], [address], 05/05/2024 09:30:51 05/05/1905/05/2024 urina lysis , dipst ick Unknown Analyte Not Available [address] [place] [address] [address] [place], [address], 05/05/2024 09:30:51 Result Notes None recorded. Problems Name Problem SNOMED Code Status Onset Date Resolution Date Notes Provider Name and Address Organization Details Recorded Time Attention deficit hyperactivity disorder 647310117 Active Natasha kimble, PA - [facility] 4 15:03:09 Depressive disorder 46630171 Active Natasha kimble, PA - [facility] 4 15:03:15 Insomnia 956134619 Active Natasha kimble, PA - [facility] 4 15:03:24 Problem Notes None recorded. Procedures Surgical History Date Name Laterality Status Provider Name and Address Organization Details Recorded Time Suture/Staple Removal Providers completed JARETT Magaña [address] [place], [place] [address], [address], PA - [facility] 11/27/2023 15:09:54 Imaging [...] Updated DateTime 5 170.18 cm 25.1 kg/m2 20721.7 8 g 100 % 100 % 83 /min 20 /min 98 [degF] 115 mm[Hg] 77 mm[Hg] Gage DENSON - [facility] 5 09:28:27 Date Recorded Body height Body mass index (BMI) Body weight Oxygen saturation Oxygen saturation in Arterial blood by Pulse oximetry Heart rate Respiratory rate Body temperature Systolic blood pressure Diastolic blood pressure Provider Name and Address Organization Details Last Updated DateTime 4 170.18 cm 24.3 kg/m2 50191.8 2 g 98 % 98 % 76 /min 18 /min 98.8 [degF] 125 mm[Hg] 92 mm[Hg] Natasha Avina PA - [facility] 15:02:32 Social History Question Answer Notes LastModified by Organizat ion Details LastModified Time Tobacco Smoking Status Never Smoker Natasha Avina null, PA - [facility] 11/27/2023 15:03:41 Have You Had A Flu Shot This Season? Yes [email or web address] Information not available 11/27/2023 What Is Your Relationship Status? Single Information not available 11/27/2023 Are You Passively Exposed To Smoke? No [email or web address] Information no t available 11/27/2023 Have You Recently Traveled Abroad? Yes [place] [email or web address] Information not available 11/27/2023 Sex: Unknown Functional Status Question Answer Note LastModified by Organizat ion Details LastModified Time Do you use any illicit or recreational drugs? No [email or web address] Information not available 11/27/2023 Do you or have you ever used any other forms of tobacco or nicotine? No [email or web address] Information not available 11/27/2023 What is your level of alcohol consumption? Occasional [email or web address] Information not available 11/27/2023 Are you currently employed? Yes Information not available 11/27/2023 Mental Status None recorded. Family History Nothing [...] SNOMED-CT Code Diagnosis ICD10 Code Diagnosis Note [id number] [address] [address] 10/02/2020 17:59:34 10/02/2020 19:14:16 [id number] [address] [place] [address] [place] [address] 03/20/2021 11:20:00 03/20/2021 12:54:56 [id number] JARETT Magaña [address] [place] [address] 11/27/2023 14:51:22 11/27/2023 15:10:22 Removal of amy [id number] Z48.02 Amy removed easily without complicati on. Can return to normal hygiene practices. [id number] Ronen Lucero DO [address] [address] 05/05/2024 09:17:19 05/05/2024 09:55:00 Acute urinary tract infection 804947677 N39.0 Signs and Symptoms c/w UTIUA c/w [...] Recorded Advance Directives Directive None Recorded Payers Insurance Date Sequence Insurance Name Policy Number Policy Ferrer Covered Member ID Ferrer Member ID Guarantor Name 05/08/2024 1 [facility] (O) [id number] Nigelchamp Gibbs [id number] Nigel Gibbs Notes Date Note Type Note Provider Name and Address Organization Details Recorded Time 11/27/2023 text/html 38 y/o female he re for staple removal from the top of her head, placed 10 days ago, no pain JARETT Magaña [address] [place], [address], [employer] 11/27/2023 15:10:56 05/05/2024 text/html DysuriaReported bypatient.Notes:38 yo female c/o c/o dysuria x 4 d+ increased frequency+ increased urgencyno incontinence+ pressureno malodorno blood in her urineno vaginal bleedingno vaginal dischargeno back painno rashno feverno nausea or vomitingno MS change JARETT GARCIA [address] [place], [address], [employer] 05/08/2024 10:11:58 OBGyn Episode No OBEpisode recorded.
== END 2024-09-13 13:51 | disposition home or self-care (01) ==
LOC: HO.HMCFM 13:05
PROVIDERS: PCP Family Medicine; Visit Provider Nurse Practitioner Family
DX: E11.9 Type 2 diabetes mellitus without complications (principal)

== ENCOUNTER 2024-11-16 11:02 | Outpatient (REF) | payer OTHER, SELFPAY ==
[2024-11-16 14:09] LABS: MANUAL DIFF FLAG NO
[2024-11-16 14:13] LABS: Hematocrit 31.3 % (37.0-47.0); Hemoglobin 10.2 g/dl (12.0-16.0); Imm Gran Abs Auto 0.04 X10*3/uL (0.00-0.03); Imm Gran Pct Auto 0.4 % (0.0-0.4); Lymphocytes Absolute Auto 2.0 X10*3/uL (1.2-4.9); Mean Corpuscular HGB Conc 32.6 g/dl (31.0-35.0); Mean Corpuscular Hemoglobin 30.1 pg (27.0-33.0); Mean Corpuscular Volume 92.3 fL (80.0-98.0); NRBC Abs Auto 0.000 X10*3/uL (0.0-0.012); NRBC Pct Auto 0.0 /100WBC (0.0-0.2); Platelet Count 735 X10*3/uL (160-400); Red Blood Count 3.39 X10*6/uL (4.20-5.50); White Blood Count 10.0 X10*3/uL (4.8-10.8)
[2024-11-16 14:29] LABS: Alanine Aminotransferase 16 U/L (0-31); Albumin Level 3.8 g/dL (3.5-5.0); Alkaline Phosphatase 97 U/L (39-117); Anion Gap 10 (12-20); Aspartate Amino Transferase 34 U/L (5-31); Blood Urea Nitrogen 14 mg/dL (9-16); Calcium 9.2 mg/dL (8.4-10.2); Carbon Dioxide 27 mmol/L (22-29); Chloride 103 mmol/L (96-108); Estimated Glomerular Filt Rate > 60; Potassium 4.4 mmol/L (3.3-5.1); Sodium 136 mmol/L (135-145); Total Protein 7.5 g/dL (6.5-8.0)
== END 2024-11-16 11:03 | disposition home or self-care (01) ==
LOC: HO.WFDLDS 11:02
PROVIDERS: PCP Family Medicine; Visit Provider Family Medicine
DX: R55 Syncope and collapse (principal); R42 Dizziness and giddiness; N28.89 Other specified disorders of kidney and ureter; D64.9 Anemia, unspecified; Z00.00 Encounter for general adult medical examination without abnormal findings
CPT/HCPCS: 36415; 80053; 85025; 99212

== ENCOUNTER 2024-11-16 11:02 | Outpatient (AMB) | payer OTHER, SELFPAY ==
--- NOTE | 2024-11-16 11:03 | A.OFFPC_ITS ---
Vital Signs 11/16/24 11:05 Height 5 ft 6 in Weight 155 lb 4 oz BMI 25.1 BP 112/66 Blood Pressure Location Rt brachial Position Sitting Respiration 16 Pulse 77 Pulse Source Pulse Oximeter Temp 97.8 F Temp Source Oral Pulse Oximetry (%) 98 Oxygen Delivery Method Room Air Intake Visit Reasons: Discharge Follow-Up FROM [facility] Allergies bee pollen (bee stings) Allergy (Severe, Verified 11/16/24 11:07) Anaphylaxis Tobacco use date assessed: 11/16/24 Dental Screening Dental Screen Date: 11/16/24 Did you have a dental visit in the last 12 months?: Yes Did you have a dental problem in the last 6 months where you did not have access to dental care?: No Was dental information given to patient?: Patient has dentist HPI Discharge Follow-Up FROM [facility] / [facility] HPI Details 39 y/o female presents to f/u ED visit for an episode of syncope. Pt stated she had felt dizzy with changes in position at baseline. Stated she felt nauseous and felt as though her stomach were bloated when she was on her way home. Had denied any tongue biting, urinary or bowel incontinence, fevers/chills,chest pain, shortness of breath or changes in appetite. CT of abd/pelvis revealed evidence of large 7.4cm mass in lower pole of L kidney containing fat density elements with surrounding hemorrhage. Had noted to be anemic and was trending down. Patient had additional syncopal episode. Was still rather anemic and transfused 1 unit packed red blood cells. Reports ongoing dizziness. Hydrate well Referred to urology MRI abdomen with renal protocol Recheck H&H and renal function Will follow-up patient in a few weeks to review the above. [facility] Medical History Irritable bowel syndrome Anemia Migraine Anxiety and depression ADHD Hyperlipidemia Endometriosis Surgical History History of tonsillectomy History of appendectomy History of removal of ovarian cyst Hx of esophagogastroduodenoscopy Hx of colonoscopy Family History (Updated 11/16/24 @ 11:10 by Skye Aburto CMA) Maternal Aunt Breast CA Maternal Grandfather Lung cancer Mother Mental health disorder Social History Household Members: Family Housing: House Are you a primary home care music therapist to a significant other at home: No Do you presently have visiting nurse or other home services: No Patient Tobacco Use Status: Never used Tobacco e-Cigarette/Vaping Use: Never Used Second Hand Smoke Exposure: No service: No Current occupational status: employed Current occupational exposures/hazards: No Cognitive needs: No Hearing needs: No Vision needs: No Questionnaire PHQ-9 Over the last 2 weeks, how often have you been bothered by any of the following problems? 1. Little interest or pleasure in doing things: not at all 2. Feeling down, depressed, or hopeless: not at all 3. Trouble falling or staying asleep, or sleeping too much: several days 4. Feeling tired or having little energy: several days 5. Poor appetite or overeating: not at all 6. Feeling bad about yourself - or that you are a failure or have let yourself or your family down: not at all 7. Trouble concentrating on things, such as reading the newspaper or watching television: not at all 8. Moving or speaking so slowly that other people could have noticed. Or the opposite - being so fidgety or restless that you have been moving around a lot more than usual: not at all 9. Thoughts that you would be better off or of hurting yourself in some way: not at all Total score: 2 Source: Developed by Drs. Shay Sy, Tatyana Guzmán, Nilson Tabor and colleagues, with an educational kaia from [employer]. Thrive Questionnaire Date Thrive assessed: 05/12/24 I am a: Patient What is your living situation today?: I have a steady place to live Within the past 12 months, did the food you bought not last and you didn't have the money to get more?: Never true Within the past 12 months, did you worry whether your food would run out before you got money to buy more?: Never true Do you have trouble paying for medicines?: I choose not to answer this question Do you have trouble getting transportation to medical appointments?: No Do you have trouble paying your heating and electricity bill?: No Do you have trouble taking care of your child, family member or friend?: No Do you have trouble with day-to-day activities such as bathing, preparing meals, shopping, managing finances, etc.?: No Are you currently unemployed and looking for a job?: No Are you interested in more education?: No Please select the resources that you would like help with: None Currently or been in a relationship where the following occur: No concerns reported THRIVE Score: 0 AUDIT C Alcohol Use Questionnaire (AUDIT-C) 1. How often do you have a drink containing alcohol?: Monthly or less 2. How many drinks containing alcohol do you have on a typical day when you are drinking?: 1 or 2 3. How often do you have six or more drinks on one occasion?: Never Total Score: 1 TORRI-7 AMB Questionnaire TORRI-7 Date TORRI - 7 assessed: 11/16/24 Feeling nervous, anxious, or on edge: 1 = Several days Not being able to stop or control worryin = Several days Worrying too much about different things: 1 = Several days Trouble relaxin = Several days Being so restless that it is hard to sit still: 1 = Several days Becoming easily annoyed or irritable: 1 = Several days Feeling afraid as if something awful might happen: 1 = Several days Total TORRI-7 score (0-4 normal; 5-9 mild; 10-14 moderate; 15-21 severe): 7 Source: Developed by Drs. Shay Sy, Tatyana Guzmán, Nilson Tabor and colleagues, with an educational kaia from [employer]. Review of Systems Const Denies chills, Denies fatigue, Denies fever(s), Denies headache(s) and Denies weakness ENT Denies dizziness and Denies headache(s) Card Denies dyspnea Resp Denies cough, Denies dyspnea, Denies wheezing and Denies other (shortness of breath) Musc Denies numbness and Denies tingling Neuro Denies dizziness, Denies headache(s), Denies numbness, Denies tingling and Denies weakness Psych Denies anxiety and Denies depression Endo Denies fatigue Aller/Immun Denies wheezing Physical exam (Primary Care) Vital Signs: Last Vital Signs Temp 97.8 F 11/16/24 11:05 Pulse 77 11/16/24 11:05 Resp 16 11/16/24 11:05 BP 112/66 11/16/24 11:05 Pulse Ox 98 08/14/25 11:05 Oxygen Delivery Method Room Air 11/16/24 11:05 BMI result Body Mass Index 25.1 Tobacco/Smoking Status: Tobacco use Status Tobacco use date assessed 11/16/24 11/16/24 11:11 Patient Tobacco Use Status Never used Tobacco 11/16/24 11:04 e-Cigarette/Vaping Use Never Used 11/16/24 11:04 PHQ-9: PHQ-9 Score PHQ-9: Total score 2 11/16/24 11:58 Thrive Assessment: Date of Thrive Assessment Date Thrive assessed 05/12/24 11/16/24 11:04 Currently or been in a relationship where the following occur: No concerns reported Const General: well developed; No acute distress Nutritional Appearance: well nourished Orientation/consciousness: patient oriented x3 HENMT Head: Yes normocephalic and Yes atraumatic Eyes General: appearance normal, both eyes and all related structures Pupils: Equal, round and reactive pupils present EOM: EOMs intact bilaterally Resp Effort & Inspection: normal respiratory effort Neuro General: patient oriented x3 and gait normal Cranial nerves: Yes Equal, round and reactive pupils present Psych Affect: normal affect Coding Level of Care Code TCM Mod MDM <= 14 Days Diagnoses Syncope R55 Kidney mass N28.89 Dizziness R42 Assessment & Plan Assessment & Plan (1) Syncope: Code(s): R55 - Syncope and collapse Category: Medical (2) Kidney mass: Code(s): N28.89 - Other specified disorders of kidney and ureter Category: Medical (3) Dizziness: Code(s): R42 - Dizziness and giddiness Category: Medical Plan Patient presented to [facility] Emergency Department for syncope. She had felt nauseous and dizzy her to passing out and did hit her head. No tongue bite or loss of urine. Imaging showed a hemorrhagic 7 cm mass at left kidney. She was noted to be anemic and H&H was trending down. Embolization was performed and there was no residual filling of the hypervascular mass on repeat arteriography. Patient had additional syncopal episode. Was still rather anemic and transfused 1 unit packed red blood cells. Orders: Orders Comprehensive Met. Panel Today R55 - Syncope and collapse MR abdomen wo/w con Today N28.89 - Other specified disorders of kidney and ureter Complete Blood Count Auto Diff Today D64.9 - Anemia, unspecified, Z00.00 - Encounter for general adult medical examination without abnormal findings Referrals Urology Referral N28.89 - Other specified disorders of kidney and ureter
[2024-11-16 11:05] VITALS: BP 112/66; PULSE 77; RESP 16; TEMP 36.6; O2SAT 98; BMI 25.1
--- OUTSIDE RECORDS SUMMARY | 2024-11-16 12:11 | XMS_ITS ---
Author Name [facility] Organization Unknown Encounters Encounter Type Encounter Reason Primary Diagnosis Location Date Ambulatory [facility] ([facility] 05/05/2024
--- OUTSIDE RECORDS SUMMARY | 2024-11-16 12:11 | XMS_ITS | Clinical Summary ---
Author Organization [facility] Address [address] [place] [address] Care Team Providers Care Biofuels Engineering Manager Name Role Phone Benito Salinas FREIGHT AND PASSENGER AGENT Primary Care Provider [phone] Source Comments PLEASE NOTE, if this patient [...] 05/14/2020 Overview (01/07/2023): Pap smear 12/21/18 at [facility] NILM, neg HPV Pap smear 07/09/22 NILM, neg HPV Polyp of colon 05/03/2020 Lump of right wrist 05/03/2020 Hemorrhoids 05/03/2020 Left ankle sprain 11/06/2019 Overview (11/06/2019): [facility] ED 10/09/19 for L ankle sprain. Advised to f/u with ortho in 1 week for repeat x-rays. 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 06/18/15 Pelvic U/S at [facility] shows interval enlargement of R [...] (04/17/2015): Per pt report. Seen at at [facility]. [phone]. Previously on Adderall 20mg. Anxiety 04/17/2015 Overview (04/17/2015): Per pt report. Seen at at [facility]. [phone]. Previously managed with Ativan 1mg. Depression 04/17/2015 Overview (04/17/2015): Per pt report. Seen at at [facility]. [phone] Immunizations Immunization Administration Dates Next Due Flu, Cell Culture based, Pre servative Free, 6m+, Flucelvax 02/27/2019 Flu, Preservative Free 01/07/2023,01/28/2020 Hep B,adult,adjuvanted (HEPLISAV) 01/07/2023 INFLUENZA, SEASONAL, INJECTABLE 01/28/2020 Influenza (FLUBLOK),recombinant,injectable,preservative Free 12/21/2023 [employer] COVID VACCINE, PURPLE CAP, 12+ 03/30/2020 TDAP [...] 83 12/21/2023 2:33 PM EDT Temperature 36.9 C (98.5 F) 12/21/2023 2:33 PM EDT Respiratory Rate 16 12/21/2023 2:33 PM EDT Oxygen Saturation 99% 12/21/2023 2:33 PM EDT Inhaled Oxygen Concentration - - Weight 69.8 kg (153 lb 12.8 oz) 12/21/2023 2:33 PM EDT Height 168.9 cm (5' 6.5 ) 01/07/2023 10 :40 AM EDT Body Mass Index 24.45 01/07/2023 10:40 AM EDT Plan of Treatment Health Maintenance Due Date Last Done Comments Anxiety Screening 1985 Imm-Hepatitis B (2 of 2 - Cp G 2-dose series) 02/04/2023 01/07/2023 Depression Monitoring 04/09/2023 01/07/2023 , 12/23/2020, 05/02/2020 Breast Cancer Screening (Mammogram) 11/11/2023 11/10/2021 [id number] ( season) 2023 01/29/2021, 04/20/2020, 03/30/2020, Additional history exists HPV Screening 12/27/2023 12/26/2018 Annual Wellness (Adult): Indicated (All Coverage) 01/08/2024 01/07/2023, 12/23/2020, 11/01/2018 Relationship Safety Screening/Counseling 01/08/2024 01/07/2023, 12/23/2020 Alcohol and Drug Screen 04/05/2024 01/08/20, 05/02/2020, 11/01/2018, Additional history exists Imm-Influenza (#1) 2024 12/21/2023, 1 , 02/01/2022, Additional history exists Hypertension Screening (#1) 12/20/2024 Tobacco Screening 12/20/2024 12/21/2023 Pap Smear 07/09/2025 07/09/2022, 04/0 09/2022 (Managed by Outside Provider), 12/26/2018 Diabetes Screening 01/07/2026 01/07/2023, 0 12/23/2020, 05/09/2020, Additional history exists Cervical Cancer Screening 07/10/2027 Pap + HPV 07/10/2027 07/09/2022, 12/26/2018 Lipid Screening 01/08/2028 01/07/2023, 05/09/2020 Imm-DTaP/Tdap/Td (2 - Td or Tdap) 12/23/2030 021 HIV Screening Completed 05/09/2020 Hepatitis C Screening Completed 05/09/2020 Cervical Ablation/Cold-Knife Conization Discontinued Cervical Cryotherapy Discontinued [...] AM EDT) CHOLESTEROL, TOTAL 228(H) <200 mg/dL [employer] HDL CHOLESTEROL 72 > OR = 50 mg/dL [employer] TRIGLYCERIDES 132 <150 mg/dL [employer] LDL-CHOLESTEROL 131(H) 99 mg/dL (calc) [facility] Comment: Reference range: <100 Desirable range <100 mg/dL for primary prevention; <70 mg/dL for patients with CHD or diabetic patients with > or = 2 CHD risk factors. LDL-C is now calculated using the Joel-Jeanine calculation, which is a validated novel method providing better accuracy than the Friedewald equation in the estimation of LDL-C. Joel CHINCHILLA et al. DIMITRY. 2013;310(19): 0351-4726 (http://education.[employer]/faq/YCZ799) CHOL/HDLC RATIO 3.2 <5.0 (calc) [facility] NON-HDL CHOLESTEROL 156(H) <130 mg/dL (calc) [facility] Comment: For patients with diabetes plus 1 major ASCVD risk factor, treating to a non-HDL-C goal of <100 mg/dL (LDL-C of <70 mg/dL) is considered a therapeutic option. Blood Blood / Unknown 01/07/2023 1 1:32 AM EDT 01/07/2023 11:32 AM EDT [facility] - BLOOD DRAW Final Re sult [facility] [address] [address], [employer] [facility] [address] [place] [address] * (ABNORMAL) COMPREHENSIVE METABOLIC PANEL (01/07/2023 11:32 AM EDT) GLUCOSE 93 65 - 99 mg/dL [facility] Comment: Fasting reference interval UREA NITROGEN (BUN) 13 7 - 25 mg/dL [facility] CREATININE (blood) 0.81 0.50 - 0.97 mg/dL [facility] EGFR 95 > OR = 60 mL/min/1. 73m2 [facility] BUN/CREATININE RATIO SEE NOTE: 6 - [employer] [facility] Comment: Not Reported: BUN and Creatinine are within reference range. SODIUM 134(L) 135 - 146 mmol/L [facility] POTASSIUM 4.2 3.5 - 5.3 mmol/L [facility] CHLORIDE 101 98 - 110 mmol/L [facility] CARBON DIOXIDE 25 20 - 32 mmol/L [facility] CALCIUM 9.6 8.6 - 10.2 mg/dL [facility] PROTEIN, TOTAL 7.4 6.1 - 8.1 g/dL [facility] ALBUMIN 4.3 3.6 - 5.1 g/dL [facility] GLOBULIN 3.1 1.9 - 3.7 g/dL (calc) [facility] ALBUMIN/GLOBULI N RATIO 1.4 1.0 - 2.5 (calc) [facility] BILIRUBIN, TOTAL 0.3 0.2 - 1.2 mg/dL [facility] ALKALINE PHOSPHATASE 43 31 - 125 U/L [facility] AST 10 10 - 30 U/L [facility] ALT 8 6 - 29 U/L [facility] Blood Blood / Unknown 01/07/2023 1 1:32 AM EDT 01/07/2023 11:32 AM EDT [facility] - BLOOD DRAW Final Re sult [facility] [address] [place] [address], [facility] [address] [address] * PAP W/ HPV (07/09/2022 3:00 AM EDT) 07/09/2022 3:00 AM EDT [facility] - PATHOLOGY AND CYTOL OGY AMBULATORY Final Result * HISTORIC MAMMOGRAM (11/10/2021 3:00 AM EDT) 11/10/2021 3:00 AM EDT [facility] IMG MAMMO Final Res ult * HEPATITIS C ANTIBODY (05/09/2020 9:17 AM EST) HEPATITIS C VIRUS SCREEN NEGATIVE NEGATIVE [facility] Blood Blood / Unknown 05/09/2020 9 :17 AM EST 05/09/2020 9:33 AM EST Narrative [facility] - 05/09/2020 2:11 PM EST [facility] [employer], [place] [address] Children'S Nursery Assistant - Marcia Henderson MD PT ID [id number] ORD# [id number] [facility] - BLOOD DRAW Final Re sult Performing Organization Address City/[facility]/ZIP Co de Phone Number [address] [address], * HIV-1 & HIV-2 ANTIBODIES (05/09/2020 9:17 AM EST) HIV 1 AND 2 ANTIBODY SCREEN NEGATIVE NEGATIVE [facility] Comment: This assay is a 4th generation assay allowing for earlier detection of HIV infection by detecting the presence of the HIV-1 p24 antigen as well as the traditional antibodies to HIV type 1 (including group O) and type 2. Use of a 4th generation assay is the current CDC recommendation for HIV screening. Blood Blood / Unknown 05/09/2020 9 :17 AM EST 05/09/2020 9:33 AM EST Narrative [facility] - 05/09/2020 2:11 PM EST [employer], [place] [address] Children'S Nursery Assistant - Marcia Henderson MD PT ID [id number] ORD# [id number] [facility] - BLOOD DRAW Final Re sult Performing Organization Address City/[facility]/[place] [address], * PAP SMEAR W/HPV (12/26/2018 9:00 AM EDT) PAP SMEAR INTERPRETATION NORMAL NORMAL [facility] HPV (HUMAN PAPILLOMA) NEGATIVE NEGATIVE [facility] HPV TYPE 16 NEGATIVE NEGATIVE [facility] HPV TYPE 18 NEGATIVE NEGATIVE [facility] Cervix 12/26/2018 9:00 AM EDT Impressions [facility] - 12/26/2018 1:16 PM EDT NEGATIVE for Intraepithelial Lesion or Malignancy. Human Papilloma Virus, High-Risk- NEGATIVE. Adequacy:Satisfactory.Endocervical/transformation zone component present. [facility] LAB - PATHOLOGY AND CYTOLOGY AMB ULATORY Final Result Performing Organization Address City/[facility]/[place] [address], from Last 3 Months or Most Recently Relevant to Health Maintenance Insurance [id number] Member Subscriber Plan / Payer (Ef fective 2017-Present) Name:Nigel Gibbs Relation to Subscriber:Self Name:Nigel Gibbs Payer ID:[id number] Type:Indemnity Address: [address] [address] [place] [address] Care Teams Biofuels Engineering Manager Relationship Specialty Start Date End Date Benito Salinas NP [address] [place] [address] PCP - General Family Medicine, FREIGHT AND PASSENGER AGENT 02/08/24
== END 2024-11-16 12:25 | disposition home or self-care (01) ==
LOC: HO.HMCFM 11:02
PROVIDERS: PCP Family Medicine; Visit Provider Family Medicine
DX: R55 Syncope and collapse (principal); N28.89 Other specified disorders of kidney and ureter; R42 Dizziness and giddiness

== ENCOUNTER 2024-12-12 12:38 | Outpatient (REF) | payer OTHER, SELFPAY ==
--- NOTE | ~2024-12-12 | MR_ITS ---
EXAMINATION: MR ABDOMEN WITHOUT THEN WITH IV CONTRAST HISTORY: N28.89 - Other specified disorders of kidney and ureter COMPARISON: There are no prior studies available for comparison. TECHNIQUE: Axial in and out of phase T1-weighted gradient echo, axial diffusion weighted, and axial and coronal HASTE T2 with fat saturation images were obtained through the abdomen. Subsequently, fat suppressed axial and coronal T1-weighted images were obtained after the intravenous administration of 7 mL Gadavist. FINDINGS: Liver: There is no loss of signal intensity in the liver on opposed phase imaging to suggest steatosis. There is no enhancing liver mass. The hepatic and portal veins are patent. There is no intrahepatic biliary dilatation. Gallbladder/biliary tree: No gallstones are identified. The common bile duct is normal in caliber. No intraluminal filling defects are identified to suggest choledocholithiasis. Spleen: The spleen is unremarkable. Pancreas: The pancreas is unremarkable. There is no enhancing pancreatic mass. The pancreatic duct is normal in caliber. Adrenals: The adrenal glands are unremarkable. Kidneys: The right kidney is unremarkable. There is a mass at the lower pole of the left kidney measuring 8.3 x 6.7 x 7.1 cm. The mass demonstrates heterogeneous signal on T1 and T2-weighted images with multiple foci of increased and decreased signal intensity. There is loss of signal intensity within the mass on opposed phase imaging and with fat suppression, highly suggestive of intratumoral fat in an angiomyolipoma. Hemosiderin is seen at the periphery of the mass cyst with prior hemorrhage. There is no hydronephrosis. Lymph nodes: There is no retroperitoneal lymphadenopathy in the upper abdomen. Fluid: There is no ascites in the upper abdomen. Visualized bowel: The visualized small and large bowel loops are unremarkable in appearance. Visualized bones: The visualized bones demonstrate normal marrow signal intensity. MR/MR abdomen wo/w con IMPRESSION: 8.3 x 6.7 x 7.1 cm mass at the lower pole of the left kidney containing evidence of gross fat. 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 Lesions of this size are at high risk for future hemorrhage, and surgical consultation is recommended. Electronically signed by: Shay Michel MD 12/12/2024 01:41 PM EDT
--- OUTSIDE RECORDS SUMMARY | 2024-12-12 15:01 | XMS_ITS | Clinical Summary ---
Author Organization [facility] Address [address] [place] [address] Care Team Providers Care Digital Account Director Name Role Phone Benito Salinas CONCRETE PLACEMENT EQUIPMENT OPERATOR Primary Care Provider [phone] Source Comments PLEASE NOTE, if this patient [...] 05/14/2020 Overview (01/07/2023): Pap smear 12/21/18 at [facility] NILM, neg HPV Pap smear 07/09/22 NILM, neg HPV Polyp of colon 05/03/2020 Lump of right wrist 05/03/2020 Hemorrhoids 05/03/2020 Left ankle sprain 11/06/2019 Overview (11/06/2019): [facility] ED 10/09/19 for L ankle sprain. Advised to f/u with ortho in 1 week for repeat x-rays. 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 06/18/15 Pelvic U/S at [facility] shows interval enlargement of R ovarian [...] (04/17/2015): Per pt report. Seen at at [facility] [phone]. Previously on Adderall 20mg. Anxiety 04/17/2015 Overview (04/17/2015): Per pt report. Seen at at [facility]. [phone]. Previously managed with Ativan 1mg. Depression 04/17/2015 Overview (04/17/2015): Per pt report. Seen at at [facility]. [phone] Immunizations Immunization Administration Dates Next Due Flu, Cell Culture based, Pre servative Free, 6m+, Flucelvax 02/27/2019 Flu, Preservative Free 01/07/2023,01/28/2020 Hep B,adult,adjuvanted (HEPLISAV) 01/07/2023 INFLUENZA, SEASONAL, INJECTABLE 01/28/2020 Influenza (FLUBLOK),recombinant,injectable,preservative Free 12/21/2023 [employer] COVID VACCINE, PURPLE CAP, 12+ 03/30/2020 TDAP [...] 05/02/2020 Breast Cancer Screening (Mammogram) 11/11/2023 11/10/2021 HPV Screening 12/27/2023 12/26/2018 Annual Wellness (Adult): Indicated (All Coverage) 01/08/2024 01/07/2023, 12/23/2020, 11/01/2018 Relationship Safety Screening/Counseling 01/08/2024 01/07/2023, 12/23/2020 Alcohol and Drug Screen 04/05/2024 01/08/20, 05/02/2020, 11/01/2018, Additional history exists [id number] ( season) 2024 01/29/2021, 04/20/2020, 03/30/2020, Additional history exists Imm-Influenza (#1) 2024 12/21/2023, [...] AM EDT) CHOLESTEROL, TOTAL 228(H) <200 mg/dL [employer] HDL CHOLESTEROL 72 > OR = 50 mg/dL [employer] [facility] TRIGLYCERIDES 132 <150 mg/dL [employer] [facility] LDL-CHOLESTEROL 131(H) 99 mg/dL (calc) [employer] Comment: Reference range: <100 Desirable range <100 mg/dL for primary prevention; <70 mg/dL for patients with CHD or diabetic patients with > or = 2 CHD risk factors. LDL-C is now calculated using the Joel-Jeanine calculation, which is a validated novel method providing better accuracy than the Friedewald equation in the estimation of LDL-C. Joel CHINCHILLA et al. DIMITRY. 2013;310(19): 6860-7941 (http://education.[employer]/faq/RYS837) CHOL/HDLC RATIO 3.2 <5.0 (calc) [facility] [facility] NON-HDL CHOLESTEROL 156(H) <130 mg/dL (calc) [facility] [facility] Comment: For patients with diabetes plus 1 major ASCVD risk factor, treating to a non-HDL-C goal of <100 mg/dL (LDL-C of <70 mg/dL) is considered a therapeutic option. Blood Blood / Unknown 01/07/2023 1 1:32 AM EDT 01/07/2023 11:32 AM EDT [facility] LAB - BLOOD DRAW Final Re sult [employer] [facility] [address] [address], [employer] [facility] [address] [place] [address] * (ABNORMAL) COMPREHENSIVE METABOLIC PANEL (01/07/2023 11:32 AM EDT) GLUCOSE 93 65 - 99 mg/dL [employer] [facility] Comment: Fasting reference interval UREA NITROGEN (BUN) 13 7 - 25 mg/dL [employer] [facility] CREATININE (blood) 0.81 0.50 - 0.97 mg/dL [employer] [facility] EGFR 95 > OR = 60 mL/min/1. 73m2 [employer] [facility] BUN/CREATININE RATIO SEE NOTE: 6 - [employer] [facility] Comment: Not Reported: BUN and Creatinine are within reference range. SODIUM 134(L) 135 - 146 mmol/L [employer] [facility] POTASSIUM 4.2 3.5 - 5.3 mmol/L [employer] [facility] CHLORIDE 101 98 - 110 mmol/L [employer] [facility] CARBON DIOXIDE 25 20 - 32 mmol/L [employer] [facility] CALCIUM 9.6 8.6 - 10.2 mg/dL [employer] [facility] PROTEIN, TOTAL 7.4 6.1 - 8.1 g/dL [employer] [facility] ALBUMIN 4.3 3.6 - 5.1 g/dL [employer] [facility] GLOBULIN 3.1 1.9 - 3.7 g/dL (calc) [employer] [facility] ALBUMIN/GLOBULI N RATIO 1.4 1.0 - 2.5 (calc) [employer] [facility] BILIRUBIN, TOTAL 0.3 0.2 - 1.2 mg/dL [employer] [facility] ALKALINE PHOSPHATASE 43 31 - 125 U/L [employer] [facility] AST 10 10 - 30 U/L [employer] [facility] ALT 8 6 - 29 U/L [employer] [facility] Blood Blood / Unknown 01/07/2023 1 1:32 AM EDT 01/07/2023 11:32 AM EDT [facility] LAB - BLOOD DRAW Final Re sult [facility] [address] [place] [address], [facility] [address] [address] * PAP W/ HPV (07/09/2022 3:00 AM EDT) 07/09/2022 3:00 AM EDT [facility] - PATHOLOGY AND CYTOL OGY AMBULATORY Final Result * HISTORIC MAMMOGRAM (11/10/2021 3:00 AM EDT) 11/10/2021 3:00 AM EDT [facility] IMG MAMMO Final Res ult * HEPATITIS C ANTIBODY (05/09/2020 9:17 AM EST) HEPATITIS C VIRUS SCREEN NEGATIVE NEGATIVE [facility] Blood Blood / Unknown 05/09/2020 9 :17 AM EST 05/09/2020 9:33 AM EST Narrative [facility] - 05/09/2020 2:11 PM EST [facility] [employer], [place] [address] Certified Welding Inspector - Marcia Henderson MD PT ID [id number] ORD# [id number] [facility] - BLOOD DRAW Final Re sult Performing Organization Address City/[facility]/ZIP Co de Phone Number [address] [address], * HIV-1 & HIV-2 ANTIBODIES (05/09/2020 9:17 AM EST) HIV 1 AND 2 ANTIBODY SCREEN NEGATIVE NEGATIVE [facility] Comment: This assay is a [...] AM EST 05/09/2020 9:33 AM EST Narrative [facility] - 05/09/2020 2:11 PM EST [employer], [place] [address] Certified Welding Inspector - Marcia Henderson MD PT ID [id number] ORD# [id number] [facility] - BLOOD DRAW Final Re sult Performing Organization Address City/[facility]/[place] [address], * PAP SMEAR W/HPV (12/26/2018 9:00 AM EDT) PAP SMEAR INTERPRETATION NORMAL NORMAL [facility] HPV (HUMAN PAPILLOMA) NEGATIVE NEGATIVE [facility] HPV TYPE 16 NEGATIVE NEGATIVE [facility] HPV TYPE 18 NEGATIVE NEGATIVE [facility] [employer] 12/26/2018 9:00 AM EDT Impressions [facility] - 12/26/2018 1:16 PM EDT NEGATIVE for Intraepithelial Lesion or Malignancy. Human Papilloma Virus, High-Risk- NEGATIVE. Adequacy:Satisfactory.Endocervical/transformation zone component present. [facility] LAB - PATHOLOGY AND CYTOLOGY AMB ULATORY Final Result Performing Organization Address City/[facility]/[place] [address], from Last 3 Months or Most Recently Relevant to Health Maintenance Insurance [facility] D[facility] [employer] Member Subscriber Plan / Payer (Ef fective 2017-Present) Name:Nigel Gibbs Relation to Subscriber:Self Name:Nigel Gibbs Payer ID:[id number] Type:Indemnity Address: [address] [address] [place] [address] Care Teams Digital Account Director Relationship Specialty Start Date End Date Benito Salinas NP [address] [place] [address] PCP - General Family Medicine, CONCRETE PLACEMENT EQUIPMENT OPERATOR 02/08/24
== END 2024-12-12 12:39 | disposition home or self-care (01) ==
LOC: HO.MRI 12:38
PROVIDERS: PCP Family Medicine; Visit Provider Family Medicine
DX: N28.89 Other specified disorders of kidney and ureter (principal)
CPT/HCPCS: 74183; A9585

== ENCOUNTER → 2024-12-12 12:47 | Outpatient (BNV) | payer OTHER, SELFPAY | PROVIDERS: PCP Family Medicine; Visit Provider Radiology Diagnostic Radiology | DX: N28.89 Other specified disorders of kidney and ureter (principal) | CPT/HCPCS: 74183 ==

== ENCOUNTER 2024-12-15 12:00 | Outpatient (AMB) | payer OTHER, SELFPAY ==
--- NOTE | 2024-12-15 12:12 | A.OFFPC_ITS ---
Vital Signs 12/15/24 12:25 Height 5 ft 6 in Weight 160 lb 2 oz BMI 25.8 BP 116/72 Blood Pressure Location Lt brachial Position Sitting Respiration 16 Pulse 78 Pulse Source Pulse Oximeter Temp 97.6 F Temp Source Temporal Artery Scan Pulse Oximetry (%) 99 Oxygen Delivery Method Room Air Intake Visit Reasons: f/u MRI, labs Intake Note: Nigel presents in the office today for a follow up to her MRI and lab results. Allergies bee pollen (bee stings) Allergy (Severe, Verified 12/15/24 12:24) Anaphylaxis Medication List - Last Reconciled 12/15/24 by Eben Negrete MD dextroamphetamine-amphetamine 10 mg 1 tab PO BID epinephrine (EpiPen) 0.3 mg IM Q4H PRN fluoxetine 20 mg PO DAILY lorazepam 0.5 - 1 mg PO DAILY PRN norelgestromin-ethin.estradiol 150-35 mcg/24 hr (Xulane) 1 patch transdermal QWEEK 28 days ondansetron 4 mg PO Q8H PRN 30 days pantoprazole 40 mg PO DAILY 30 days Tobacco use date assessed: 12/15/24 Dental Screening Dental Screen Date: 12/15/24 Did you have a dental visit in the last 12 months?: Yes Did you have a dental problem in the last 6 months where you did not have access to dental care?: No Was dental information given to patient?: Patient has dentist HPI f/u MRI, labs HPI Details 39 y/o female presents to follow-up left renal mass and syncope with anemia. MRI renal protocol was ordered Repeat lab work including H&H and renal function ordered She was referred to Urology, Dr. Sandhu MRI 12/12/24 showed: 8.3 x 6.7 x 7.1 cm mass at the lower pole of the left kidney containing evidence of gross fat. 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 Lesions of this size are at high risk for future hemorrhage, and surgical consultation is recommended. HPI Comments History of Present Illness Details Documentation assistance for Eben Negrete MD, was provided by Bryan Ang,? Forensic Specialist on at 1:07 PM EST. I, Dr. Negrete, have read, observed, and verified documentation. ?? [facility] Medical History Irritable bowel syndrome Anemia Migraine Anxiety and depression ADHD Hyperlipidemia Endometriosis Surgical History History of tonsillectomy History of appendectomy History of removal of ovarian cyst Hx of esophagogastroduodenoscopy Hx of colonoscopy Family History (Updated 11/16/24 @ 11:10 by Skye Aburto CMA) Maternal Aunt Breast CA Maternal Grandfather Lung cancer Mother Mental health disorder Social History Household Members: Family Housing: House Are you a primary healthcare administrative assistant to a significant other at home: No Do you presently have visiting nurse or other home services: No Alcohol intake: current Patient Tobacco Use Status: Never used Tobacco e-Cigarette/Vaping Use: Never Used Second Hand Smoke Exposure: No service: No Current occupational status: employed Current occupational exposures/hazards: No Cognitive needs: No Hearing needs: No Vision needs: No Questionnaire Thrive Questionnaire Date Thrive assessed: 05/12/24 I am a: Patient What is your living situation today?: I have a steady place to live Within the past 12 months, did the food you bought not last and you didn't have the money to get more?: Never true Within the past 12 months, did you worry whether your food would run out before you got money to buy more?: Never true Do you have trouble paying for medicines?: I choose not to answer this question Do you have trouble getting transportation to medical appointments?: No Do you have trouble paying your heating and electricity bill?: No Do you have trouble taking care of your child, family member or friend?: No Do you have trouble with day-to-day activities such as bathing, preparing meals, shopping, managing finances, etc.?: No Are you currently unemployed and looking for a job?: No Are you interested in more education?: No Please select the resources that you would like help with: None Currently or been in a relationship where the following occur: No concerns reported THRIVE Score: 0 TORRI-7 AMB Questionnaire TORRI-7 Date TORRI - 7 assessed: 11/16/24 Source: Developed by Drs. Shay Sy, Tatyana Guzmán, Nilson Tabor and colleagues, with an educational kaia from [employer]. Review of Systems Const Denies chills, Denies fatigue, Denies fever(s), Denies headache(s) and Denies weakness ENT Denies dizziness and Denies headache(s) Card Denies dyspnea Resp Denies cough, Denies dyspnea, Denies wheezing and Denies other (shortness of breath) Musc Denies numbness and Denies tingling Neuro Denies dizziness, Denies headache(s), Denies numbness, Denies tingling and Denies weakness Psych Denies anxiety and Denies depression Endo Denies fatigue Aller/Immun Denies wheezing Physical exam (Primary Care) Vital Signs: Last Vital Signs Temp 97.6 F 12/15/24 12:25 Pulse 78 12/15/24 12:25 Resp 16 12/15/24 12:25 BP 116/72 12/15/24 12:25 Pulse Ox 99 12/15/24 12:25 Oxygen Delivery Method Room Air 12/15/24 12:25 BMI result Body Mass Index 25.8 Tobacco/Smoking Status: Tobacco use Status Tobacco use date assessed 12/15/24 12/15/24 12:29 Patient Tobacco Use Status Never used Tobacco 12/15/24 12:25 e-Cigarette/Vaping Use Never Used 12/15/24 12:25 Thrive Assessment: Date of Thrive Assessment Date Thrive assessed 05/12/24 12/15/24 12:13 Currently or been in a relationship where the following occur: No concerns reported Const General: well developed; No acute distress Nutritional Appearance: well nourished Orientation/consciousness: patient oriented x3 [facility] Head: Yes normocephalic and Yes atraumatic Eyes General: appearance normal, both eyes and all related structures Pupils: Equal, round and reactive pupils present EOM: EOMs intact bilaterally Resp Effort & Inspection: normal respiratory effort Auscultation: clear to auscultation bilaterally Cardio Rate: regular rate Rhythm: regular rhythm Heart sounds: S1 normal heart sound present, S2 normal heart sound present, no gallops, no murmurs and no rubs Neuro General: patient oriented x3 and gait normal Cranial nerves: Yes Equal, round and reactive pupils present Psych Affect: normal affect Results AMB Hemoglobin A1c AMB Hemoglobin A1c 5.3 % Last Edit by Tia Scruggs MA on 12/15/24 12:37 Results Reviewed Results Reviewed: Laboratory Last Values Hgb A1c (Clinic) 5.3 % (4.0-6.0) 12/15/24 12:13 Coding Level of Care Code Est Pt Level 4 (89392) Diagnoses Kidney mass N28.89 Anemia, unspecified type D64.9 Anemia type: unspecified type Syncope R55 Screening for colon cancer Z12.11 Type 2 diabetes mellitus without complication, without long-term current use of insulin E11.9 Diabetes mellitus complication status: without complication Diabetes mellitus buttermaker helper insulin use: without senior living use Diabetes mellitus type: type 2 Gastroesophageal reflux disease without esophagitis K21.9 Esophagitis presence: without esophagitis Assessment & Plan Assessment & Plan (1) Kidney mass: Code(s): N28.89 - Other specified disorders of kidney and ureter Category: Medical Plan: Angiomyolipoma and recent intervention due to hemorrhage. She has an upcoming appointment with Urology Follow-up urology as recommended (2) Anemia: Code(s): D64.9 - Anemia, unspecified Category: Medical Qualifiers: Anemia type: unspecified type Qualified Code(s): D64.9 - Anemia, unspecified Plan: As above recent hemorrhage above angiomyolipoma H&H at last check was stable Due to recheck this Will call patient if action is required (3) Syncope: Code(s): R55 - Syncope and collapse Category: Medical Plan: Resolved (4) Screening for colon cancer: Code(s): Z12.11 - Encounter for screening for malignant neoplasm of colon Category: Medical Plan: Patient had colonoscopy at [facility] and was advised to follow-up every 5 years However, also as significant GERD Follow-up with Gastroenterology as recommended-I have made referral regarding GERD (5) Diabetes: Code(s): E11.9 - Type 2 diabetes mellitus without complications Category: Medical Qualifiers: Diabetes mellitus complication status: without complication Diabetes mellitus senior living insulin use: without buttermaker helper use Diabetes mellitus type: type 2 Qualified Code(s): E11.9 - Type 2 diabetes mellitus without complications Plan: A1c 5.3% This is range Stable (6) GERD (gastroesophageal reflux disease): Code(s): K21.9 - Gastro-esophageal reflux disease without esophagitis Category: Medical Qualifiers: Esophagitis presence: without esophagitis Qualified Code(s): K21.9 - Gastro-esophageal reflux disease without esophagitis Plan: As above Referred to Gastroenterology Orders: Orders AMB Hemoglobin A1c Today E11.9 - Type 2 diabetes mellitus without complications MM tomosynthesis screening BI Today Z12.31 - Encounter for screening mammogram for malignant neoplasm of breast IRON PROFILE Today D64.9 - Anemia, unspecified TSH reflex Free T4 Today R53.83 - Other fatigue, Z00.00 - Encounter for general adult medical examination without abnormal findings UA CC w/rflx Micro + Cult Today R53.83 - Other fatigue, Z00.00 - Encounter for general adult medical examination without abnormal findings Comprehensive Met. Panel Today R53.83 - Other fatigue Hemoglobin A1c Today E11.9 - Type 2 diabetes mellitus without complications, R73.01 - Impaired fasting glucose Complete Blood Count Auto Diff Today D64.9 - Anemia, unspecified, Z00.00 - Encounter for general adult medical examination without abnormal findings Lipid Panel Today Z00.00 - Encounter for general adult medical examination without abnormal findings Microalbumin, Random (w Creat) Today I10 - Essential (primary) hypertension LDL Cholesterol Direct Today E78.5 - Hyperlipidemia, unspecified, Z00.00 - Encounter for general adult medical examination without abnormal findings Referrals Gastroenterology Referral K21.9 - Gastro-esophageal reflux disease without esophagitis
[2024-12-15 12:25] VITALS: BP 116/72; PULSE 78; RESP 16; TEMP 36.4; O2SAT 99; BMI 25.8
--- OUTSIDE RECORDS SUMMARY | 2024-12-15 14:29 | XMS_ITS | Clinical Summary ---
Author Organization [facility] Address [address] [place] [address] Care Team Providers Care Formstone Fitter Name Role Phone Benito Salinas FAMILY AND CONSUMER EDUCATION TEACHER Primary Care Provider [phone] Source Comments PLEASE NOTE, if this patient [...] 05/14/2020 Overview (01/07/2023): Pap smear 12/21/18 at [facility] NILM, neg HPV Pap smear 07/09/22 NILM, neg HPV Polyp of colon 05/03/2020 Lump of right wrist 05/03/2020 Hemorrhoids 05/03/2020 Left ankle sprain 11/06/2019 Overview (11/06/2019): [facility] ED 10/09/19 for L ankle sprain. Advised to f/u with ortho in 1 week for repeat x-rays. 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 06/18/15 Pelvic U/S at [facility] shows interval enlargement of R ovarian [...] (04/17/2015): Per pt report. Seen at at [facility]. [phone]. Previously on Adderall 20mg. Anxiety 04/17/2015 Overview (04/17/2015): Per pt report. Seen at at [facility]. [phone]. Previously managed with Ativan 1mg. Depression 04/17/2015 Overview (04/17/2015): Per pt report. Seen at at [facility]. [phone] Immunizations Immunization Administration Dates Next Due Flu, Cell Culture based, Pre servative Free, 6m+, Flucelvax 02/27/2019 Flu, Preservative Free 01/07/2023,01/28/2020 Hep B,adult,adjuvanted (HEPLISAV) 01/07/2023 INFLUENZA, SEASONAL, INJECTABLE 01/28/2020 Influenza (FLUBLOK),recombinant,injectable,preservative Free 12/21/2023 [employer] COVID VACCINE, PURPLE CAP, 12+ 03/30/2020 TDAP [...] 04/05/2024 01/08/20, 05/02/2020, 11/01/2018, Additional history exists [id number] ( season) 2024 01/29/2021, 04/20/2020, 03/30/2020, Additional [...] AM EDT) CHOLESTEROL, TOTAL 228(H) <200 mg/dL [facility] HDL CHOLESTEROL 72 > OR = 50 mg/dL [facility] TRIGLYCERIDES 132 <150 mg/dL [facility] LDL-CHOLESTEROL 131(H) 99 mg/dL (calc) [facility] Comment: Reference range: <100 Desirable range <100 mg/dL for primary prevention; <70 mg/dL for patients with CHD or diabetic patients with > or = 2 CHD risk factors. LDL-C is now calculated using the Joel-Jeanine calculation, which is a validated novel method providing better accuracy than the Friedewald equation in the estimation of LDL-C. Joel CHINCHILLA et al. DIMITRY. 2013;310(19): 5239-9160 (http://education.Ovonyx/faq/XZM117) CHOL/HDLC RATIO 3.2 <5.0 (calc) [facility] NON-HDL CHOLESTEROL 156(H) <130 mg/dL (calc) [facility] Comment: For patients with diabetes plus 1 major ASCVD risk factor, treating to a non-HDL-C goal of <100 mg/dL (LDL-C of <70 mg/dL) is considered a therapeutic option. Blood Blood / Unknown 01/07/2023 1 1:32 AM EDT 01/07/2023 11:32 AM EDT [facility] - BLOOD DRAW Final Re sult [email or web address] [address] [address], [email or web address] [address] [place] [address] * (ABNORMAL) COMPREHENSIVE METABOLIC PANEL (01/07/2023 11:32 AM EDT) GLUCOSE 93 65 - 99 mg/dL [email or web address] Comment: Fasting reference interval UREA NITROGEN (BUN) 13 7 - 25 mg/dL [email or web address] CREATININE (blood) 0.81 0.50 - 0.97 mg/dL [email or web address] EGFR 95 > OR = 60 mL/min/1. 73m2 [email or web address] BUN/CREATININE RATIO SEE NOTE: 6 - [facility] Comment: Not Reported: BUN and Creatinine are within reference range. SODIUM 134(L) 135 - 146 mmol/L [email or web address] POTASSIUM 4.2 3.5 - 5.3 mmol/L [email or web address] CHLORIDE 101 98 - 110 mmol/L [email or web address] CARBON DIOXIDE 25 20 - 32 mmol/L [email or web address] CALCIUM 9.6 8.6 - 10.2 mg/dL [email or web address] PROTEIN, TOTAL 7.4 6.1 - 8.1 g/dL [email or web address] ALBUMIN 4.3 3.6 - 5.1 g/dL [email or web address] GLOBULIN 3.1 1.9 - 3.7 g/dL (calc) [email or web address] ALBUMIN/GLOBULI N RATIO 1.4 1.0 - 2.5 (calc) [email or web address] BILIRUBIN, TOTAL 0.3 0.2 - 1.2 mg/dL [email or web address] ALKALINE PHOSPHATASE 43 31 - 125 U/L [email or web address] AST 10 10 - 30 U/L [email or web address] ALT 8 6 - 29 U/L [email or web address] Blood Blood / Unknown 01/07/2023 1 1:32 AM EDT 01/07/2023 11:32 AM EDT [facility] - BLOOD DRAW Final Re sult [facility] [address] [place] [id number], [facility] [address] [address] * PAP W/ HPV (07/09/2022 3:00 AM EDT) 07/09/2022 3:00 AM EDT [facility] - PATHOLOGY AND CYTOL OGY AMBULATORY Final Result * HISTORIC MAMMOGRAM (11/10/2021 3:00 AM EDT) 11/10/2021 3:00 AM EDT [facility] IMG MAMMO Final Res ult * HEPATITIS C ANTIBODY (05/09/2020 9:17 AM EST) HEPATITIS C VIRUS SCREEN NEGATIVE NEGATIVE [facility] Blood Blood / Unknown 05/09/2020 9 :17 AM EST 05/09/2020 9:33 AM EST Narrative [facility] - 05/09/2020 2:11 PM EST [facility] [email or web address], [place] [address] Land Economist - Marcia Henderson MD PT ID [id number] ORD# [id number] [facility] - BLOOD DRAW Final Re sult Performing Organization Address City/[facility]/ZIP Co de Phone Number [address] [address], * HIV-1 & HIV-2 ANTIBODIES (05/09/2020 9:17 AM EST) HIV 1 AND 2 ANTIBODY SCREEN NEGATIVE NEGATIVE [facility] Comment: This assay is a 4th generation [...] AM EST 05/09/2020 9:33 AM EST Narrative [facility] - 05/09/2020 2:11 PM EST [email or web address], [place] [address] [employer]ist - Marcia Henderson MD PT ID [id number] ORD# [id number] [facility] - BLOOD DRAW Final Re sult Performing Organization Address City/[facility]/[place] [address], * PAP SMEAR W/HPV (12/26/2018 9:00 AM EDT) PAP SMEAR INTERPRETATION NORMAL NORMAL [facility] HPV (HUMAN PAPILLOMA) NEGATIVE NEGATIVE [facility] HPV TYPE 16 NEGATIVE NEGATIVE [facility] HPV TYPE 18 NEGATIVE NEGATIVE [facility] Cervix 12/26/2018 9:00 AM EDT Impressions [facility] - 12/26/2018 1:16 PM EDT NEGATIVE for Intraepithelial Lesion or Malignancy. Human Papilloma Virus, High-Risk- NEGATIVE. Adequacy:Satisfactory.Endocervical/transformation zone component present. [facility] - PATHOLOGY AND CYTOLOGY AMB ULATORY Final Result Performing Organization Address City/[facility]/[place] [address], from Last 3 Months or Most Recently Relevant to Health Maintenance Insurance [facility] [employer] Member Subscriber Plan / Payer (Ef fective 2017-Present) Name:Nigel Gibbs Relation to Subscriber:Self Name:Nigel Gibbs Payer ID:[id number] Type:Indemnity Address: [address] [address] [place] [address] Care Teams Formstone Fitter Relationship Specialty Start Date End Date Benito Salinas NP [address] [place] [address] PCP - General Family Medicine, FAMILY AND CONSUMER EDUCATION TEACHER 02/08/24
== END 2024-12-15 13:25 | disposition home or self-care (01) ==
LOC: HO.HMCFM 12:01
PROVIDERS: PCP Family Medicine; Visit Provider Family Medicine
DX: E11.9 Type 2 diabetes mellitus without complications (principal); N28.89 Other specified disorders of kidney and ureter; D64.9 Anemia, unspecified; R55 Syncope and collapse; Z12.11 Encounter for screening for malignant neoplasm of colon; K21.9 Gastro-esophageal reflux disease without esophagitis

== ENCOUNTER 2024-12-15 12:00 | Outpatient (REF) | payer OTHER, SELFPAY ==
[2024-12-15 17:58] LABS: MANUAL DIFF FLAG NO
[2024-12-15 18:04] LABS: Appearance Urine Clear; Glucose Urine UA Negative (Negative); PH 6.5 (5.0-9.0); Specific Gravity - Urine 1.010 (1.005-1.025)
[2024-12-15 18:05] LABS: Hematocrit 36.5 % (37.0-47.0); Hemoglobin 11.9 g/dl (12.0-16.0); Imm Gran Abs Auto 0.01 X10*3/uL (0.00-0.03); Imm Gran Pct Auto 0.1 % (0.0-0.4); Lymphocytes Absolute Auto 1.9 X10*3/uL (1.2-4.9); Mean Corpuscular HGB Conc 32.6 g/dl (31.0-35.0); Mean Corpuscular Hemoglobin 29.6 pg (27.0-33.0); Mean Corpuscular Volume 90.8 fL (80.0-98.0); NRBC Abs Auto 0.000 X10*3/uL (0.0-0.012); NRBC Pct Auto 0.0 /100WBC (0.0-0.2); Platelet Count 416 X10*3/uL (160-400); Red Blood Count 4.02 X10*6/uL (4.20-5.50); White Blood Count 7.2 X10*3/uL (4.8-10.8)
[2024-12-15 18:11] LABS: Total Hemoglobin (HGBA1C) 3133.0470 umol/L
[2024-12-15 18:49] LABS: Alanine Aminotransferase 13 U/L (0-31); Albumin Level 4.3 g/dL (3.5-5.0); Alkaline Phosphatase 75 U/L (39-117); Anion Gap 11 (12-20); Aspartate Amino Transferase 20 U/L (5-31); Blood Urea Nitrogen 20 mg/dL (9-16); Calcium 9.3 mg/dL (8.4-10.2); Carbon Dioxide 25 mmol/L (22-29); Chloride 106 mmol/L (96-108); Cholesterol 209 mg/dL (<200); Estimated Glomerular Filt Rate > 60; HDL Cholesterol 68 mg/dL (>40); Iron 82 mcg/dL (30-160); Percent Iron Saturation 20 % (15-50); Potassium 4.5 mmol/L (3.3-5.1); Sodium 137 mmol/L (135-145); Total Iron Binding Capacity 403 mcg/dL (228-428); Total Protein 7.9 g/dL (6.5-8.0); Triglycerides 94 mg/dL (<150); Unsaturated Iron Binding 321 ug/dL
== END 2024-12-15 12:01 | disposition home or self-care (01) ==
LOC: HO.WFDLDS 12:00
PROVIDERS: PCP Family Medicine; Visit Provider Family Medicine
DX: Z00.00 Encounter for general adult medical examination without abnormal findings (principal); Z12.11 Encounter for screening for malignant neoplasm of colon; R53.83 Other fatigue; R73.01 Impaired fasting glucose; E11.9 Type 2 diabetes mellitus without complications; D64.9 Anemia, unspecified; I10 Essential (primary) hypertension; E78.5 Hyperlipidemia, unspecified; Z79.899 Other long term (current) drug therapy; N28.89 Other specified disorders of kidney and ureter; R55 Syncope and collapse; K21.9 Gastro-esophageal reflux disease without esophagitis
CPT/HCPCS: 36415; 80053; 80061; 81003; 82570; 83036; 83540; 83721; 84443; 85025; 99212

== ENCOUNTER 2024-12-29 08:51 | Outpatient (REF) | payer OTHER, SELFPAY ==
--- NOTE | ~2024-12-29 | MM_ITS ---
EXAMINATION: MM SCREENING DIGITAL BREAST TOMOSYNTHESIS, BILATERAL CLINICAL INFORMATION: Screening. Asymptomatic. COMPARISON: Mammography: Comparison is made with available priors TECHNIQUE: Digital breast mammography with tomosynthesis is performed in both the craniocaudal and mediolateral oblique views along with computer-aided detection (CAD). FINDINGS: There are scattered areas of fibroglandular density. There are no significant masses, abnormal calcifications, or other abnormalities. MM/MM tomosynthesis screening BI IMPRESSION: No mammographic evidence of malignancy. ASSESSMENT: BI-RADS Category 1: Negative RECOMMENDATION: Routine annual mammography screening. Patient has ARACELIS mutation. Breast MRI screening surveillance should be considered for further evaluation. Breast MRI would need to be ordered by the patient's providing clinician. 1 year F/U This examination should not preclude the clinical evaluation of a suspicious palpable abnormality. This patient's information was entered into a reminder system with a target due date for their next mammogram. Electronically signed by: Michelle Burrows DO 01/01/2025 05:47 PM EDT
--- OUTSIDE RECORDS SUMMARY | 2024-12-29 09:27 | XMS_ITS | Clinical Summary ---
Author Organization [facility] Address [address] [place] [address] Care Team Providers Care Messenger Copy Name Role Phone Benito Salinas CATERING SERVICE MANAGER Primary Care Provider [phone] Source Comments PLEASE NOTE, if this patient [...] 05/14/2020 Overview (01/07/2023): Pap smear 12/21/18 at [facility] NILM, neg HPV Pap smear 07/09/22 NILM, neg HPV Polyp of colon 05/03/2020 Lump of right wrist 05/03/2020 Hemorrhoids 05/03/2020 Left ankle sprain 11/06/2019 Overview (11/06/2019): [facility] ED 10/09/19 for L ankle sprain. Advised to f/u with ortho in 1 week for repeat x-rays. 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 06/18/15 Pelvic U/S at [facility] shows interval enlargement of R [...] (04/17/2015): Per pt report. Seen at at [facility]. [phone]. Previously on Adderall 20mg. Anxiety 04/17/2015 Overview (04/17/2015): Per pt report. Seen at at [facility] [phone]. Previously managed with Ativan 1mg. Depression 04/17/2015 Overview (04/17/2015): Per pt report. Seen at at [facility]. [phone] Immunizations Immunization Administration Dates Next Due Flu, Cell Culture based, Pre servative Free, 6m+, Flucelvax 02/27/2019 Flu, Preservative Free 01/07/2023,01/28/2020 Hep B,adult,adjuvanted (HEPLISAV) 01/07/2023 INFLUENZA, SEASONAL, INJECTABLE 01/28/2020 Influenza (FLUBLOK),recombinant,injectable,preservative Free 12/21/2023 [email or web address] COVID VACCINE, PURPLE CAP, 12+ 03/30/2020 TDAP [...] Date Last Done Comments Anxiety Screening 1983 Imm-HPV (1 - 3-dose SCDM series) 07/18/2010 Imm-Hepatitis B (2 of 2 - Cp G 2-dose series) 02/04/2023 01/07/2023 Depression Monitoring 04/09/2023 01/07/2023 , 12/23/2020, 05/02/2020 Breast Cancer Screening (Mammogram) 11/11/2023 11/10/2021 HPV Screening 12/27/2023 12/26/2018 Annual Wellness (Adult): Indicated (All Coverage) 01/08/2024 01/07/2023, 12/23/2020, 11/01/2018 Relationship Safety Screening/Counseling 01/08/2024 01/07/2023, 12/23/2020 Alcohol and Drug Screen 04/05/2024 01/08/20, 05/02/2020, 11/01/2018, Additional history exists [id number] ( season) 2024 01/29/2021, 04/20/2020, 03/30/2020, Additional history exists Imm-Influenza (#1) 2024 12/21/2023, 1 , 02/01/2022, Additional history exists Hypertension Screening (#1) 12/20/2024 Tobacco Screening 12/20/2024 Pap Smear 07/09/2025 07/09/2022, 04/0 09/2022 (Managed [...] AM EDT) CHOLESTEROL, TOTAL 228(H) <200 mg/dL [facility] HDL CHOLESTEROL 72 > OR = 50 mg/dL [facility] TRIGLYCERIDES 132 <150 mg/dL [facility] LDL-CHOLESTEROL 131(H) 99 mg/dL (calc) [facility] Comment: Reference range: <100 Desirable range <100 mg/dL for primary prevention; <70 mg/dL for patients with CHD or diabetic patients with > or = 2 CHD risk factors. LDL-C is now calculated using the Joel-Jeanine calculation, which is a validated novel method providing better accuracy than the Friedewald equation in the estimation of LDL-C. Joel CHINCHILLA et al. DIMITRY. 2013;310(19): 5516-0054 (http://education.CRMnext/faq/ARL040) CHOL/HDLC RATIO 3.2 <5.0 (calc) [facility] NON-HDL CHOLESTEROL 156(H) <130 mg/dL (calc) [facility] Comment: For patients with diabetes plus 1 major ASCVD risk factor, treating to a non-HDL-C goal of <100 mg/dL (LDL-C of <70 mg/dL) is considered a therapeutic option. Blood Blood / Unknown 01/07/2023 1 1:32 AM EDT 01/07/2023 11:32 AM EDT us [facility] - BLOOD DRAW Final Re sult [employer] [facility] [address] [address], [employer] [facility] [address] [place] [address] * (ABNORMAL) COMPREHENSIVE METABOLIC PANEL (01/07/2023 11:32 AM EDT) [facility] GLUCOSE 93 65 - 99 mg/dL [employer] [facility] Comment: Fasting reference interval UREA NITROGEN (BUN) 13 7 - 25 mg/dL [employer] [facility] CREATININE (blood) 0.81 0.50 - 0.97 mg/dL [employer] [facility] EGFR 95 > OR = 60 mL/min/1. 73m2 [facility] BUN/CREATININE RATIO SEE NOTE: [employer] [facility] Comment: Not Reported: BUN and Creatinine are within reference range. SODIUM 134(L) 135 - 146 mmol/L [employer] [facility] POTASSIUM 4.2 3.5 - 5.3 mmol/L [employer] [facility] CHLORIDE 101 98 - 110 mmol/L [employer] [facility] CARBON DIOXIDE 25 20 - 32 mmol/L [employer] [facility] CALCIUM 9.6 8.6 - 10.2 mg/dL [employer] [facility] PROTEIN, TOTAL 7.4 6.1 - 8.1 g/dL [employer] [facility] ALBUMIN 4.3 3.6 - 5.1 g/dL [facility] GLOBULIN 3.1 1.9 - 3.7 g/dL (calc) [employer] [facility] ALBUMIN/GLOBULI N RATIO 1.4 1.0 - 2.5 (calc) [employer] [facility] BILIRUBIN, TOTAL 0.3 0.2 - 1.2 mg/dL [employer] [facility] ALKALINE PHOSPHATASE 43 31 - 125 U/L [employer] [facility] AST 10 10 - 30 U/L [employer] [facility] ALT 8 6 - 29 U/L [facility] Blood Blood / Unknown 01/07/2023 1 1:32 AM EDT 01/07/2023 11:32 AM EDT [facility] Kincaid Brooke [facility] - BLOOD DRAW Final Re sult [facility] [address] [address], [facility] [address] [place] [address] * PAP W/ HPV (07/09/2022 3:00 AM EDT) 07/09/2022 3:00 AM EDT Ciara Brooke [facility] - PATHOLOGY AND CYTOL OGY AMBULATORY Final Result * HISTORIC MAMMOGRAM (11/10/2021 3:00 AM EDT) 11/10/2021 3:00 AM EDT [facility] IMG MAMMO Final Res ult * HEPATITIS C ANTIBODY (05/09/2020 9:17 AM EST) HEPATITIS C VIRUS SCREEN NEGATIVE NEGATIVE [facility] Blood Blood / Unknown 05/09/2020 9 :17 AM EST 05/09/2020 9:33 AM EST Narrative [facility] - 05/09/2020 2:11 PM EST [employer], [place] [address] [employer]ificial Snow Making Machine Operator - Marcia Henderson MD PT ID [id number] ORD# [id number] [facility] - BLOOD DRAW Final Re sult Performing Organization Address City/[facility]/ZIP Co de Phone Number [facility] [employer] [address], * HIV-1 & HIV-2 ANTIBODIES (05/09/2020 9:17 AM EST) HIV 1 AND 2 ANTIBODY SCREEN NEGATIVE NEGATIVE [facility] Comment: This assay is a 4th generation [...] AM EST 05/09/2020 9:33 AM EST Narrative [facility] - 05/09/2020 2:11 PM EST [employer], [place] [address] [employer] Making Machine Operator - Marcia Henderson MD PT ID [id number] ORD# [id number] [facility] LAB - BLOOD DRAW Final Re sult Performing Organization Address City/[facility]/[place] [address], * PAP SMEAR W/HPV (12/26/2018 9:00 AM EDT) PAP SMEAR INTERPRETATION NORMAL NORMAL [facility] HPV (HUMAN PAPILLOMA) NEGATIVE NEGATIVE [facility] HPV TYPE 16 NEGATIVE NEGATIVE [facility] HPV TYPE 18 NEGATIVE NEGATIVE [facility] [employer] 12/26/2018 9:00 AM EDT Impressions [facility] - 12/26/2018 1:16 PM EDT NEGATIVE for Intraepithelial Lesion or Malignancy. Human Papilloma Virus, High-Risk- NEGATIVE. Adequacy:Satisfactory.Endocervical/transformation zone component present. [facility] LAB - PATHOLOGY AND CYTOLOGY AMB ULATORY Final Result Performing Organization Address City/[facility]/[place] [address], from Last 3 Months or Most Recently Relevant to Health Maintenance Insurance [facility] [employer] Member Subscriber Plan / Payer (Ef fective 2017-Present) Name:Nigel Gibbs Relation to Subscriber:Self Name:Nigel Gibbs Payer ID:[id number] Type:Indemnity Address: [address] [address] [place] [address] Care Teams Messenger Copy Relationship Specialty Start Date End Date Benito Salinas NP [address] [place] [address] PCP - General Family Medicine, CATERING SERVICE MANAGER 02/08/24
== END 2024-12-29 08:52 | disposition home or self-care (01) ==
LOC: HO.MAMMO 08:51
PROVIDERS: PCP Family Medicine; Visit Provider Family Medicine
DX: Z12.31 Encounter for screening mammogram for malignant neoplasm of breast (principal)
CPT/HCPCS: 77063; 77067

== ENCOUNTER → 2024-12-29 09:00 | Outpatient (BNV) | payer OTHER, SELFPAY | PROVIDERS: PCP Family Medicine; Visit Provider Internal Medicine | DX: Z12.31 Encounter for screening mammogram for malignant neoplasm of breast (principal) | CPT/HCPCS: 77063; 77067 ==